=== PATIENT | male | born 1945 | race Caucasian/White ===

== ENCOUNTER 2020-09-27 09:18 | Emergency (ER) | payer MEDICARE, MEDICAID, SELFPAY ==
--- NOTE | 2020-09-27 09:25 | ED_ITS ---
HPI - Chest Pain General Chief Complaint: Chest Pain Stated Complaint: chest pain Time Seen by Provider: 09/27/20 09:25 Source: patient Mode of arrival: ambulatory Limitations: no limitations History of Present Illness HPI narrative: Patient started with abdominal pain yesterday and now developed chest pain. Patient is feeling stressed out from what is going on in the world. MD complaint: chest heaviness Onset (ago): hour(s) (2 hours) Timing of current episode: constant Prior episodes: No Onset: during rest Pain location: left chest Pain radiation: none Severity: mild Quality: heaviness Relieving factors: nothing Exacerbating factors: nothing Treatment prior to arrival: none Risk Factors Coronary artery disease risk factors: diabetes and hyperlipidemia Related Data Home Medications Medication Instructions Recorded Confirmed aspirin 81 mg tablet,delayed 81 mg PO BEDTIME 09/01/20 release atorvastatin 20 mg tablet 20 mg PO DAILY 09/01/20 chlorthalidone 25 mg tablet 25 mg PO DAILY 09/01/20 gabapentin 100 mg capsule 200 mg PO BID 09/01/20 losartan 50 mg tablet 50 mg PO DAILY 09/01/20 melatonin 5 mg tablet mg PO 09/01/20 metformin 500 mg tablet,extended 500 mg PO BID 09/01/20 release 24 hr mirtazapine 30 mg tablet 30 mg PO BEDTIME 09/01/20 multivitamin-ferrous tab PO 09/01/20 fumarate-folic acid 18 mg-400 mcg tablet naproxen 500 mg tablet 500 mg PO BID 09/01/20 nicotine 14 mg/24 hr daily 0 patch TOPICAL 09/01/20 transdermal patch omega-3 fatty acids-fish oil 340 1 cap PO BID 09/01/20 mg-1,000 mg capsule Allergies Allergy/AdvReac Type Severity Reaction Status Date / Time No Known Allergies Allergy Verified 09/27/20 09:33 Review of Systems Constitutional: Constitutional: Reports no additional constitutional complaints Eyes: Eyes: Reports no additional eye complaints ENT: Denies dizziness Cardiovascular: Cardiovascular: Reports no additional cardiovascular co mplaints Respiratory: Respiratory: Reports as per HPI Gastrointestinal: Gastrointestinal: Reports no additional gastrointestinal complaints Musculoskeletal: Musculoskeletal: Reports no additional musculoskeletal complaints Integumentary/Breasts: Skin/Breast: Denies rash Neurologic: Reports system reviewed and no additional complaints, except as documented, Denies dizziness and Denies Sensory deficit (Neuro) Psychiatric: Psychiatric: Denies anxiety [facility], [facility] Past Medical History Medical History (Updated 09/27/20 @ 12:48 by Charles Tate MD) Diabetes 1.5, managed as type 1 Kidney disease Family History Family History Father No problems noted. Mother Diabetes Pancreas (digestive gland) works poorly Social History Social History Smoking Status: Current every day smoker Smoked in Last 30 Days: Yes Use of substances other than those prescribed or required for medical reasons: No Advance Directives: No Advance Directives Information Provided: No Physical Exam Vital Signs: Vital Signs: Last Vital Signs Temp 97.8 F 09/27/20 11:19 Pulse 63 09/27/20 11:19 Resp 13 09/27/20 11:19 BP 121/73 09/27/20 11:19 Pulse Ox 97 09/27/20 11:19 Body Mass Index 22.3 Const: General: healthy appearing Nutritional Appearance: average body habitus Orientation/consciousness: oriented to person and patient oriented x3 Limitations: no limitations HENMT: Head: Yes normal to inspection Ears: external ears normal General nose exam: Normal external nose present Mouth: Normal oral and palatal mucosa present and oropharynx normal Throat: Yes posterior oropharynx normal Eyes: General: appearance normal, both eyes and all related structures Neck: Other: supple Neck: Yes normal visual inspection Chest: Chest palpation & inspection: normal inspection of the chest Resp: Auscultation: clear to auscultation bilaterally Cardio: Jugular venous distension: no JVD Rate: regular rate Rhythm: regular rhythm Heart sounds: S1 normal heart sound present and S2 normal heart sound present GI: Inspection: Yes normal to inspection Palpation (GI): Soft to palpation, nontender and No hepatosplenomegaly present Auscultation: normal bowel sounds : General: Yes no CVA tenderness Back/Spine/Pelvis: Back: no CVA tenderness Skin: General skin exam: no rashes or lesions noted Neuro: General: oriented to person and patient oriented x3 Cranial nerves: Yes CN's II-XII intact bilaterally Motor exam (neuro): 5/5 motor strength present throughout Sensory Exam: No Sensory deficit (Neuro) Extrem: General: Yes normal to inspection Psych: Appearance: grossly normal Course Course Course Narrative: HEART score at a 5 prior to troponin Reevaluation(s) Reevaluation #1: Heart score will remain at 5 as troponin was negative Reevaluation #2: second troponin negative, unofficial bedside ultrasound shows aorta of 1.75cm, no AAA. Will dc home MDM - Chest Pain MDM Narrative Medical decision making narrative: patient with atypical chest pain, EKG normal, troponins negative, HEART score 5, no evidence of AAA will dc home Differential Diagnosis Differential diagnosis: Likely unstable angina pectoris, atypical chest pain and chest pain Lab Data Result diagrams: 09/27/20 09:39 09/27/20 09:39 Labs: Lab Results 09/27/20 09/27/20 09/27/20 Range/Units 09:39 09:39 09:39 WBC 9.2 (4.8-10.8) X10*3/uL RBC 4.35 L (4.60-5.80) X10*6/uL Hgb 13.4 L (14.0-18.0) g/dl Hct 39.5 L (42-52) % MCV 90.8 (80-98) fL MCH 30.8 (27.0-33.0) pg MCHC 33.9 (31.0-36.0) g/dl RDW 12.5 (11.0-16.0) % Plt Count 203 (160-400) X10*3/uL MPV 10.9 (9.4-12.4) fL Immature Gran % (Auto) 0.2 (0.0-0.4) % Neut % (Auto) 60.2 (45-73) % Lymph % (Auto) 29.4 (20-40) % [place] % (Auto) 7.9 (2-11) % Eos % (Auto) 2.1 (0-4) % Baso % (Auto) 0.2 (0-2) % Lymph # (Auto) 2.7 (1.2-4.9) X10*3/uL [place] # (Auto) 0.7 (0.1-1.2) X10*3/uL Eos # (Auto) 0.2 (0.0-0.4) X10*3/uL Baso # (Auto) 0.0 (0.0-0.2) X10*3/uL Abs Immat Gran (auto) 0.02 (0.00-0.03) X10*3/uL Absolute Neuts (auto) 5.5 (2.0-8.3) X10*3/uL Absolute Nucleated RBC 0.000 (0.0-0.012) X10*3/uL Nucleated RBC % (auto) 0.0 (0.0-0.2) /100WBC Sodium 138 (135-145) mmol/L Potassium 3.8 (3.3-5.1) mmol/l Chloride 98 (96-108) mmol/L Carbon Dioxide 30 H (22-29) mmol/L Anion Gap 14 (12-20) BUN 16 (9-16) mg/dL Creatinine 1.36 (0.5-1.4) mg/dL Estim Creat Clear Calc 49.6 Estimated GFR 51 Random Glucose 120 H (60-115) mg/dL Calcium 9.4 (8.4-10.2) mg/dL Troponin I High Sens 3.5 (<3.5-35.0) ng/L 09/27/20 Range/Units 11:39 WBC (4.8-10.8) X10*3/uL RBC (4.60-5.80) X10*6/uL Hgb (14.0-18.0) g/dl Hct (42-52) % MCV (80-98) fL MCH (27.0-33.0) pg MCHC (31.0-36.0) g/dl RDW (11.0-16.0) % Plt Count (160-400) X10*3/uL MPV (9.4-12.4) fL Immature Gran % (Auto) (0.0-0.4) % Neut % (Auto) (45-73) % Lymph % (Auto) (20-40) % [place] % (Auto) (2-11) % Eos % (Auto) (0-4) % Baso % (Auto) (0-2) % Lymph # (Auto) (1.2-4.9) X10*3/uL [place] # (Auto) (0.1-1.2) X10*3/uL Eos # (Auto) (0.0-0.4) X10*3/uL Baso # (Auto) (0.0-0.2) X10*3/uL Abs Immat Gran (auto) (0.00-0.03) X10*3/uL Absolute Neuts (auto) (2.0-8.3) X10*3/uL Absolute Nucleated RBC (0.0-0.012) X10*3/uL Nucleated RBC % (auto) (0.0-0.2) /100WBC Sodium (135-145) mmol/L Potassium (3.3-5.1) mmol/l Chloride (96-108) mmol/L Carbon Dioxide (22-29) mmol/L Anion Gap (12-20) BUN (9-16) mg/dL Creatinine (0.5-1.4) mg/dL Estim Creat Clear Calc Estimated GFR Random Glucose (60-115) mg/dL Calcium (8.4-10.2) mg/dL Troponin I High Sens 3.6 (<3.5-35.0) ng/L ECG Data ECG #1: Attestation: I personally reviewed and interpreted this ECG as follows: Interpretation: normal sinus occaisional PVC, rate73, no st or twave changes Discharge Plan Discharge Clinical Impression: Chest pain Qualifiers: Chest pain type: other chest pain Qualified Code(s): R07.89 - Other chest pain Patient Disposition: Home, Self-Care Instructions: Chest Pain (ED) Additional Instructions: return for worsening chest pain Prescriptions: No Action metformin 500 mg tablet extended release 24 hr 500 mg PO BID RF: 0 Cerovite Advanced Formula 18-400 mg-mcg tablet PO RF: 0 melatonin 5 mg tablet PO RF: 0 aspirin 81 mg tablet,delayed release (DR/EC) 81 mg PO BEDTIME RF: 0 atorvastatin 20 mg tablet 20 mg PO DAILY RF: 0 losartan 50 mg tablet 50 mg PO DAILY RF: 0 Fish Oil 340-1,000 mg capsule 1 cap PO BID RF: 0 gabapentin 100 mg capsule 200 mg PO BID RF: 0 nicotine 14 mg/24 hr patch 24 hour 0 patch topical RF: 0 naproxen 500 mg tablet 500 mg PO BID RF: 0 mirtazapine 30 mg tablet 30 mg PO BEDTIME RF: 0 chlorthalidone 25 mg tablet 25 mg PO DAILY RF: 0 Referrals: Physician,Unknown [Primary Care Provider] - 2 days
[2020-09-27 09:27] VITALS: BP 130/70; PULSE 70; RESP 14; TEMP 36.6; O2SAT 98; BMI 22.3
--- NOTE | 2020-09-27 09:32 | ECG_ITS ---
Test Reason : CHEST PAIN Blood Pressure : / mmHG Vent. Rate : 073 BPM Atrial Rate : 073 BPM P-R Int : 140 ms QRS Dur : 082 ms QT Int : 354 ms P-R-T Axes : 018 -28 057 degrees QTc Int : 389 ms Sinus rhythm with occasional Premature ventricular complexes and Premature atrial complexes Nonspecific ST abnormality Left axis deviation Abnormal ECG When compared with ECG of 14-JUN-2019 03:29, Premature ventricular complexes are now Present Nonspecific T wave abnormality no longer evident in Inferior leads Anterolateral leads Premature atrial complexes are new QT has shortened Referred By: Charles Tate Electronically Signed By:RANJAN BURNS MD
[2020-09-27 09:47] LABS: Basophils Percent Auto 0.2 % (0-2); Eosinophils Absolute Auto 0.2 X10*3/uL (0.0-0.4); Eosinophils Percent Auto 2.1 % (0-4); Hematocrit 39.5 % (42-52); Hemoglobin 13.4 g/dl (14.0-18.0); Imm Gran Abs Auto 0.02 X10*3/uL (0.00-0.03); Imm Gran Pct Auto 0.2 % (0.0-0.4); Lymphocytes Absolute Auto 2.7 X10*3/uL (1.2-4.9); Lymphocytes Percent Auto 29.4 % (20-40); MANUAL DIFF FLAG NO; Mean Corpuscular HGB Conc 33.9 g/dl (31.0-36.0); Mean Corpuscular Hemoglobin 30.8 pg (27.0-33.0); Mean Corpuscular Volume 90.8 fL (80-98); Mean Platelet Volume 10.9 fL (9.4-12.4); Monocytes Absolute Auto 0.7 X10*3/uL (0.1-1.2); Monocytes Percent Auto 7.9 % (2-11); Neutrophils Absolute Auto 5.5 X10*3/uL (2.0-8.3); Neutrophils Percent Auto 60.2 % (45-73); Platelet Count 203 X10*3/uL (160-400); Red Blood Count 4.35 X10*6/uL (4.60-5.80); Red Cell Distribution Width 12.5 % (11.0-16.0); White Blood Count 9.2 X10*3/uL (4.8-10.8)
[2020-09-27 09:49] VITALS: BP 130/70; PULSE 62
[2020-09-27] MEDS: Aspirin 81 MG TAB.CHEW 162 MG PO (09:49)
[2020-09-27] MEDS: Nitroglycerin 0.4 MG TAB.SUBL SUBLINGUAL (09:49)
[2020-09-27 10:03] VITALS: BP 135/63; PULSE 76
[2020-09-27 10:09] LABS: Anion Gap 14 (12-20); Blood Urea Nitrogen 16 mg/dL (9-16); Calcium 9.4 mg/dL (8.4-10.2); Carbon Dioxide 30 mmol/L (22-29); Chloride 98 mmol/L (96-108); Creatinine Clr Calc Pharmacy 49.6; Estimated Glomerular Filt Rate 51; Glucose Random 120 mg/dL (60-115); Potassium 3.8 mmol/l (3.3-5.1); Sodium 138 mmol/L (135-145)
[2020-09-27 10:17] LABS: Troponin-I High Sensitivity 3.5 ng/L (<3.5-35.0)
[2020-09-27] MEDS: Nitroglycerin 2 % Oint 1 GM Packet 1 INCH TRANSDERMA (10:59)
[2020-09-27 11:02] VITALS: BP 120/69; PULSE 58; O2SAT 97
[2020-09-27 11:19] VITALS: BP 121/73; PULSE 63; RESP 13; TEMP 36.6; O2SAT 97
--- NOTE | 2020-09-27 11:23 | PC.NURSE ---
Took over care of this patient at 1100. Pt was medicated for left chest and abd pain with sl and topical nitro. He reports no pain at this time. VSS. Pt appears comfortable. Awaiting disopsition.
[2020-09-27 11:24] VITALS: PULSE 53
[2020-09-27 12:13] LABS: Troponin-I High Sensitivity 3.6 ng/L (<3.5-35.0)
== END 2020-09-27 12:58 | disposition home or self-care (01) ==
PROVIDERS: Emergency Provider Emergency Medicine
DX: R07.89 Other chest pain (principal); F17.200 Nicotine dependence, unspecified, uncomplicated; Z71.6 Tobacco abuse counseling; R10.9 Unspecified abdominal pain; Z79.899 Other long term (current) drug therapy
CPT/HCPCS: 36415; 80048; 84484; 85025; 93005; 99283; 99284

== ENCOUNTER 2020-09-29 13:19 | Emergency (ER) | payer MEDICARE, MEDICAID, SELFPAY ==
[2020-09-29 14:17] VITALS: BP 121/73; PULSE 60; RESP 16; TEMP 36.2; O2SAT 99; BMI 23.7
--- NOTE | 2020-09-29 14:44 | CT_ITS ---
EXAMINATION: CT ABDOMEN AND PELVIS WITHOUT CONTRAST CLINICAL INFORMATION: Left lower quadrant pain COMPARISON: Prior examinations most recent CT abdomen pelvis June 2017. TECHNIQUE: Multidetector volumetric imaging was performed from the superior aspect of the liver through the pubic symphysis. Sagittal and coronal reformatted images were obtained on the technologist's workstation. This CT examination was performed using dose optimization techniques as appropriate, variously including the following: *Automated exposure control *Adjustment of mA and/or kV according to patient size (this includes techniques or standardized protocols for targeted exams where dose is matched to indication/reason for exam; i.e. extremities or head) *Use of iterative reconstruction technique DLP: 495 mGy-cm FINDINGS: LUNG BASES: The visualized lung bases are unremarkable. LIVER, GALLBLADDER, AND BILIARY TREE: The liver is normal in size, shape, and attenuation. No focal hepatic lesion or biliary ductal dilatation is present. The gallbladder is unremarkable with no evidence of radiopaque gallstones, gallbladder wall thickening, or obvious pericholecystic inflammatory changes. PANCREAS: Unremarkable. SPLEEN: Unremarkable. ADRENAL GLANDS: Unremarkable. KIDNEYS AND URETERS: The kidneys are normal in size, shape, and attenuation. No hydronephrosis, hydroureter, or calculi seen. No perinephric stranding. BLADDER: Unremarkable. GASTROINTESTINAL TRACT: Appendix not clearly visualized. No inflammatory changes in the expected region appendix. There is prominent scattered diverticulosis throughout the descending colon and sigmoid colon. Is some minimal stranding in the pericolonic fat distal descending colon and sigmoid similar compared to prior. This could reflect chronic change but cannot exclude mild diverticulitis small bowel normal. Stomach normal. ABDOMINAL WALL: No significant hernia is appreciated. LYMPH NODES: Normal. VASCULAR: Moderate calcific atherosclerotic disease throughout. PELVIC VISCERA: Unremarkable. OSSEOUS STRUCTURES: Prominent degenerative disc changes at L5-S1 unchanged. Scattered mild multilevel spondylosis elsewhere throughout the lumbar sacral spine. CT/CT abdomen pelvis wo con IMPRESSION: Scattered diverticulosis throughout the distal colon. Subtle stranding in the surrounding pericolonic fat in the descending colon and sigmoid similar to prior. While this could reflect chronic diverticulosis recurrent mild acute diverticulitis remains a consideration.. Moderate calcific atherosclerotic disease.
--- NOTE | 2020-09-29 14:49 | ED_ITS ---
HPI - Abdominal Pain General Chief Complaint: Abdominal Pain Stated Complaint: NEEDS MEDICATION Time Seen by Provider: 09/29/20 13:44 Source: patient and old records reviewed Mode of arrival: ambulatory Limitations: no limitations History of Present Illness MD elicited complaint: abdominal pain Pertinent past history: constipation Onset (ago): day(s) (3) Pain Consistency: constant Location: LLQ Severity: moderate Quality: cramping Radiation: LLQ Exacerbating factors: movement Relieving factors: nothing Associated symptoms: denies other symptoms Related Data Home Medications Medication Instructions Recorded Confirmed aspirin 81 mg tablet,delayed 81 mg PO BEDTIME 09/01/20 release atorvastatin 20 mg tablet 20 mg PO DAILY 09/01/20 chlorthalidone 25 mg tablet 25 mg PO DAILY 09/01/20 gabapentin 100 mg capsule 200 mg PO BID 09/01/20 losartan 50 mg tablet 50 mg PO DAILY 09/01/20 melatonin 5 mg tablet mg PO 09/01/20 metformin 500 mg tablet,extended 500 mg PO BID 09/01/20 release 24 hr mirtazapine 30 mg tablet 30 mg PO BEDTIME 09/01/20 multivitamin-ferrous tab PO 09/01/20 fumarate-folic acid 18 mg-400 mcg tablet naproxen 500 mg tablet 500 mg PO BID 09/01/20 nicotine 14 mg/24 hr daily 0 patch TOPICAL 09/01/20 transdermal patch omega-3 fatty acids-fish oil 340 1 cap PO BID 09/01/20 mg-1,000 mg capsule Previous Rx's Medication Instructions Recorded hydrocodone-acetaminophen 1 tab PO Q6H PRN #12 tab 09/29/20 levofloxacin 250 mg PO DAILY 7 Days #7 tab 09/29/20 metronidazole [Flagyl] 500 mg PO Q12H 7 Days #14 tab 09/29/20 ondansetron 4 mg PO Q8H PRN #20 tab 09/29/20 sennosides [senna] 8.6 mg PO BEDTIME PRN #30 tab 09/29/20 Allergies Allergy/AdvReac Type Severity Reaction Status Date / Time No Known Allergies Allergy Verified 09/27/20 09:33 Review of Systems Review of Systems Constitutional : No Weight loss, No Fever, No Chills ENT/Mouth : No sore throat, No Rhinorrhea Eyes: No Swelling, No Redness Cardiovascular : No Chest Pain, No SOB, NoEdema Respiratory : No Cough, No Sputum, No Wheezing Gastrointestinal : no Nausea, no Vomiting, no Diarrhea, positive abdominal Pain, positive constipation No Hematochezia, No Melena Genitourinary : No Dysuria, No Urinary Frequency, No Hematuria, No Urgency Musculoskeletal : No joint pain, No Myalgias, No Joint Swelling Skin : No Skin Lesions, No rash Neuro : No Weakness, No Numbness, No Dizziness, No Headache Psych : No Anxiety/Panic, No Depression Heme/Lymph: No Bruising, No Lymphadenopathy Endocrine : No Polyuria, No Polydipsia All other systems reviewed and are negative. Physical Exam Vital Signs: Vital Signs: Last Vital Signs Temp 97.2 F 09/29/20 14:17 Pulse 60 09/29/20 14:17 Resp 16 09/29/20 14:17 BP 121/73 09/29/20 14:17 Pulse Ox 99 09/29/20 14:17 Body Mass Index 23.7 Appearance: Alert. Oriented X3. No acute distress. Eyes: Pupils equal, round and reactive to light. ENT: Pharynx normal. Neck: Normal inspection. Neck supple. CVS: Normal heart rate and rhythm. Pulses normal. Respiratory: No respiratory distress. Breath sounds normal. Abdomen: Soft and tenderness to palpation LLQ no rebound or guarding Skin: Skin warm and dry. Normal skin color. Normal skin turgor. Extremities: No lower extremity edema. No calf ttp Neuro: Oriented X 3. No motor deficit. No sensory deficit. Course Course Course Narrative: + mild diverticulitis stable for DC outpatient management. MDM - Abdominal Pain MDM Narrative Medical decision making narrative: 75 yo male here with LLQ pain no or GI symptoms other than constipation - no rebound or guarding no fevers, vomiting, can tolerate PO at this time will need labs, CT scan for constipation vs diverticulitis, dispo per results and findings. Lab Data Labs: Lab Results 09/29/20 Range/Units 15:27 Urine Color YELLOW Urine Appearance CLEAR Urine pH 8.0 (5.0-8.0) Ur Specific [place] 1.015 (1.005-1.025) Urine Protein NEG (NEG-TRACE) MG/DL Urine Glucose (UA) 100 H (NEG) MG/DL Urine Ketones NEG (NEG) MG/DL Urine Blood NEG (NEG) Urine Nitrite NEG (NEG) Ur Leukocyte Esterase NEG (NEG) Discharge Plan Discharge Clinical Impression: Diverticulitis Patient Disposition: Home, Self-Care Instructions: Diverticulitis (ED) Additional Instructions: return to ED for any worsening symptoms or concerns Prescriptions: New hydrocodone-acetaminophen 5-325 mg tablet 1 tab PO Q6H PRN (Reason: pain) Qty: 12 RF: 0 ondansetron 4 mg tablet,disintegrating 4 mg PO Q8H PRN (Reason: nausea and vomiting) Qty: 20 RF: 0 metronidazole [Flagyl] 500 mg tablet 500 mg PO Q12H 7 Days Qty: 14 RF: 0 levofloxacin 250 mg tablet 250 mg PO DAILY 7 Days Qty: 7 RF: 0 sennosides [senna] 8.6 mg tablet 8.6 mg PO BEDTIME PRN (Reason: constipation) Qty: 30 RF: 0 No Action metformin 500 mg tablet extended release 24 hr 500 mg PO BID RF: 0 Cerovite Advanced Formula 18-400 mg-mcg tablet PO RF: 0 melatonin 5 mg tablet PO RF: 0 aspirin 81 mg tablet,delayed release (DR/EC) 81 mg PO BEDTIME RF: 0 atorvastatin 20 mg tablet 20 mg PO DAILY RF: 0 losartan 50 mg tablet 50 mg PO DAILY RF: 0 Fish Oil 340-1,000 mg capsule 1 cap PO BID RF: 0 gabapentin 100 mg capsule 200 mg PO BID RF: 0 nicotine 14 mg/24 hr patch 24 hour 0 patch topical RF: 0 naproxen 500 mg tablet 500 mg PO BID RF: 0 mirtazapine 30 mg tablet 30 mg PO BEDTIME RF: 0 chlorthalidone 25 mg tablet 25 mg PO DAILY RF: 0 Referrals: [facility] [Primary Care Provider] - 2 days (if not better) Stand Alone Forms: Work/School Release Print Language: Swedish [facility] Past Medical History Attestation statement: The following information was validated with the patient. Medical History Diabetes 1.5, managed as type 1 Kidney disease Family History Family History Father No problems noted. Mother Diabetes Pancreas (digestive gland) works poorly Social History Social History Smoking Status: Current every day smoker Advance Directives: No Advance Directives Information Provided: Yes
[2020-09-29 15:32] LABS: Glucose Urine UA 100 MG/DL (NEG); Leukocyte Esterase Urine NEG (NEG); Nitrite Urine NEG (NEG); Specific Gravity - Urine 1.015 (1.005-1.025); Urine Blood NEG (NEG); Urine Ketones NEG (NEG); Urine Protein NEG (NEG-TRACE)
[2020-09-29 15:34] LABS: Appearance Urine CLEAR; Color Urine YELLOW
[2020-09-29 15:57] VITALS: BP 127/70; PULSE 69; RESP 16; TEMP 36.9; O2SAT 97
== END 2020-09-29 16:00 | disposition home or self-care (01) ==
PROVIDERS: Emergency Provider Emergency Medicine
DX: K57.32 Diverticulitis of large intestine without perforation or abscess without bleeding (principal); R10.32 Left lower quadrant pain; Z79.899 Other long term (current) drug therapy
CPT/HCPCS: 74176; 81003; 99284

== ENCOUNTER 2020-10-10 18:12 | Emergency (ER) | payer MEDICARE, MEDICAID, SELFPAY ==
--- NOTE | 2020-10-10 18:13 | ECG_ITS ---
Test Reason : cp Blood Pressure : / mmHG Vent. Rate : 074 BPM Atrial Rate : 074 BPM P-R Int : 132 ms QRS Dur : 088 ms QT Int : 364 ms P-R-T Axes : 012 -38 094 degrees QTc Int : 404 ms Sinus rhythm with sinus arrhythmia with occasional Premature ventricular complexes Left anterior fascicular block Nonspecific ST and T wave abnormality Abnormal ECG When compared with ECG of 27-SEP-2020 09:25, Premature atrial complexes are no longer Present Nonspecific T wave abnormality, worse in Lateral leads Inferior leads Referred By: Generic ED Physician Electronically Signed By:RANJAN BURNS MD
[2020-10-10 18:58] VITALS: BP 125/79; PULSE 76; RESP 18; TEMP 37; O2SAT 99; BMI 23.6
--- NOTE | 2020-10-10 19:06 | ED_ITS ---
HPI - Chest Pain General Chief Complaint: Chest Pain Stated Complaint: chest pain,dizzyness Time Seen by Provider: 10/10/20 19:06 Source: patient Mode of arrival: ambulatory Limitations: no limitations History of Present Illness HPI narrative: patient history of anxiety , diabetes well controlled complaining of epigastric chest pain for last few days similar to in the past when he gets anxious he was seen here on 09/27 and the workup was negative. Patient is under lot of stress lately MD complaint: chest pain Onset (ago): day(s) ( few days) Timing of current episode: episodic Onset: during rest Pain location: substernal and epigastric Pain radiation: abdomen Quality: dull Relieving factors: nothing Exacerbating factors: movement Context: recent illness Associated symptoms: nausea Treatment prior to arrival: none Related Data Home Medications Medication Instructions Recorded Confirmed aspirin 81 mg tablet,delayed 81 mg PO BEDTIME 09/01/20 release atorvastatin 20 mg tablet 20 mg PO DAILY 09/01/20 chlorthalidone 25 mg tablet 25 mg PO DAILY 09/01/20 gabapentin 100 mg capsule 200 mg PO BID 09/01/20 losartan 50 mg tablet 50 mg PO DAILY 09/01/20 melatonin 5 mg tablet mg PO 09/01/20 metformin 500 mg tablet,extended 500 mg PO BID 09/01/20 release 24 hr mirtazapine 30 mg tablet 30 mg PO BEDTIME 09/01/20 multivitamin-ferrous tab PO 09/01/20 fumarate-folic acid 18 mg-400 mcg tablet naproxen 500 mg tablet 500 mg PO BID 09/01/20 nicotine 14 mg/24 hr daily 0 patch TOPICAL 09/01/20 transdermal patch omega-3 fatty acids-fish oil 340 1 cap PO BID 09/01/20 mg-1,000 mg capsule Previous Rx's Medication Instructions Recorded hydrocodone-acetaminophen 1 tab PO Q6H PRN #12 tab 09/29/20 levofloxacin 250 mg PO DAILY 7 Days #7 tab 09/29/20 metronidazole [Flagyl] 500 mg PO Q12H 7 Days #14 tab 09/29/20 ondansetron 4 mg PO Q8H PRN #20 tab 09/29/20 sennosides [senna] 8.6 mg PO BEDTIME PRN #30 tab 09/29/20 lorazepam [Ativan] 1 mg PO BID PRN #14 tab 11/23/20 Allergies Allergy/AdvReac Type Severity Reaction Status Date / Time No Known Allergies Allergy Verified 09/27/20 09:33 Review of Systems Review of Systems: REVIEW OF SYSTEMS: Pertinent positives and negatives are stated above in the history. GEN: no fevers, chills, fatigue , anxiety + HEENT: no nasal congestion, sore throat, ear pain NEURO: no headache, dizziness, focal weakness PULM: no cough, shortness of breath CV: no palpitations, LE edema ABD: no abdominal pain, nausea, vomiting, diarrhea : no dysuria, urgency, frequency SKIN: no rash ROS otherwise negative x 10 [facility] Past Medical History Medical History Diabetes 1.5, managed as type 1 Kidney disease Family History Family History Father No problems noted. Mother Diabetes Pancreas (digestive gland) works poorly Social History Social History Alcohol intake: never Smoking Status: Never smoker Smoked in Last 30 Days: No Use of substances other than those prescribed or required for medical reasons: No Advance Directives: No Advance Directives Information Provided: Yes Physical Exam Vital Signs: Vital Signs: Last Vital Signs Temp 98.6 F 10/10/20 18:58 Pulse 73 10/10/20 20:00 Resp 16 10/10/20 20:00 BP 127/73 10/10/20 20:00 Pulse Ox 98 10/10/20 20:00 Body Mass Index 23.6 Appearance: Alert. Oriented X3. No acute distress. Eyes: Pupils equal, round and reactive to light. ENT: Pharynx normal. Neck: Normal inspection. Neck supple. CVS: Normal heart rate and rhythm. Pulses normal. Respiratory: No respiratory distress. Breath sounds normal. Abdomen: Soft and nontender. Skin: Skin warm and dry. Normal skin color. Normal skin turgor. Extremities: No lower extremity edema. Good range of movement Neuro: Oriented X 3. No motor deficit. No sensory deficit. MDM - Chest Pain MDM Narrative Medical decision making narrative: patient has atypical chest pain with anxiety with similar visit in the ER without any EKG changes troponin is negative will discharge patient home will give him a prescription for Ativan Medical Records Data Attestation: I reviewed the patient's medical records. Lab Data Attestation: I reviewed the patient's lab results. Result diagrams: 10/10/20 19:49 10/10/20 19:49 Labs: Lab Results 10/10/20 10/10/20 10/10/20 Range/Units 19:49 19:49 19:49 WBC 9.0 (4.8-10.8) X10*3/uL RBC 4.33 L (4.60-5.80) X10*6/uL Hgb 13.5 L (14.0-18.0) g/dl Hct 40.0 L (42-52) % MCV 92.4 (80-98) fL MCH 31.2 (27.0-33.0) pg MCHC 33.8 (31.0-36.0) g/dl RDW 12.9 (11.0-16.0) % Plt Count 199 (160-400) X10*3/uL MPV 10.9 (9.4-12.4) fL Immature Gran % (Auto) 0.2 (0.0-0.4) % Neut % (Auto) 64.1 (45-73) % Lymph % (Auto) 25.7 (20-40) % [place] % (Auto) 8.2 (2-11) % Eos % (Auto) 1.6 (0-4) % Baso % (Auto) 0.2 (0-2) % Lymph # (Auto) 2.3 (1.2-4.9) X10*3/uL [place] # (Auto) 0.7 (0.1-1.2) X10*3/uL Eos # (Auto) 0.1 (0.0-0.4) X10*3/uL Baso # (Auto) 0.0 (0.0-0.2) X10*3/uL Abs Immat Gran (auto) 0.02 (0.00-0.03) X10*3/uL Absolute Neuts (auto) 5.8 (2.0-8.3) X10*3/uL Absolute Nucleated RBC 0.000 (0.0-0.012) X10*3/uL Nucleated RBC % (auto) 0.0 (0.0-0.2) /100WBC Sodium 140 (135-145) mmol/L Potassium 3.6 (3.3-5.1) mmol/l Chloride 100 (96-108) mmol/L Carbon Dioxide 28 (22-29) mmol/L Anion Gap 16 (12-20) BUN 17 H (9-16) mg/dL Creatinine 1.27 (0.5-1.4) mg/dL Estim Creat Clear Calc 55.1 Estimated GFR 56 Random Glucose 94 (60-115) mg/dL Calcium 9.2 (8.4-10.2) mg/dL Troponin I High Sens 4.2 (<3.5-35.0) ng/L ECG Data ECG #1: Attestation: I personally reviewed and interpreted this ECG as follows: ECG interpretation date: 10/10/20 Interpretation: normal sinus rhythm with heart rate of 74 left axis deviation nonspecific ST T wave changes , normal intervals occasional unifocal PVCs, no acute ischemic changes Discharge Plan Discharge Clinical Impression: Atypical chest pain, Anxiety Patient Disposition: Home, Self-Care Instructions: Chest Pain (ED), Anxiety (ED) Additional Instructions: continue taking medications as prescribed by PCP. Take medication for anxiety. Report to the ER/ PCP chest pain continues Prescriptions: New lorazepam [Ativan] 1 mg tablet 1 mg PO BID PRN (Reason: anxiety) Qty: 14 RF: 0 No Action hydrocodone-acetaminophen 5-325 mg tablet 1 tab PO Q6H PRN (Reason: pain) Qty: 12 RF: 0 ondansetron 4 mg tablet,disintegrating 4 mg PO Q8H PRN (Reason: nausea and vomiting) Qty: 20 RF: 0 metronidazole [Flagyl] 500 mg tablet 500 mg PO Q12H 7 Days Qty: 14 RF: 0 levofloxacin 250 mg tablet 250 mg PO DAILY 7 Days Qty: 7 RF: 0 sennosides [senna] 8.6 mg tablet 8.6 mg PO BEDTIME PRN (Reason: constipation) Qty: 30 RF: 0 metformin 500 mg tablet extended release 24 hr 500 mg PO BID RF: 0 Cerovite Advanced Formula 18-400 mg-mcg tablet PO RF: 0 melatonin 5 mg tablet PO RF: 0 aspirin 81 mg tablet,delayed release (DR/EC) 81 mg PO BEDTIME RF: 0 atorvastatin 20 mg tablet 20 mg PO DAILY RF: 0 losartan 50 mg tablet 50 mg PO DAILY RF: 0 Fish Oil 340-1,000 mg capsule 1 cap PO BID RF: 0 gabapentin 100 mg capsule 200 mg PO BID RF: 0 nicotine 14 mg/24 hr patch 24 hour 0 patch topical RF: 0 naproxen 500 mg tablet 500 mg PO BID RF: 0 mirtazapine 30 mg tablet 30 mg PO BEDTIME RF: 0 chlorthalidone 25 mg tablet 25 mg PO DAILY RF: 0 Interventions: ED Discharge Assessment Last Done: 10/10/20 21:14 Discharge Date/Time: 10/10/20 21:15 Print Language: Vietnamese
[2020-10-10 19:55] LABS: MANUAL DIFF FLAG NO
[2020-10-10 19:56] LABS: Basophils Percent Auto 0.2 % (0-2); Eosinophils Absolute Auto 0.1 X10*3/uL (0.0-0.4); Eosinophils Percent Auto 1.6 % (0-4); Hemoglobin 13.5 g/dl (14.0-18.0); Imm Gran Abs Auto 0.02 X10*3/uL (0.00-0.03); Imm Gran Pct Auto 0.2 % (0.0-0.4); Lymphocytes Absolute Auto 2.3 X10*3/uL (1.2-4.9); Lymphocytes Percent Auto 25.7 % (20-40); Mean Corpuscular HGB Conc 33.8 g/dl (31.0-36.0); Mean Corpuscular Hemoglobin 31.2 pg (27.0-33.0); Mean Corpuscular Volume 92.4 fL (80-98); Mean Platelet Volume 10.9 fL (9.4-12.4); Monocytes Absolute Auto 0.7 X10*3/uL (0.1-1.2); Monocytes Percent Auto 8.2 % (2-11); Neutrophils Absolute Auto 5.8 X10*3/uL (2.0-8.3); Neutrophils Percent Auto 64.1 % (45-73); Platelet Count 199 X10*3/uL (160-400); Red Blood Count 4.33 X10*6/uL (4.60-5.80); Red Cell Distribution Width 12.9 % (11.0-16.0)
[2020-10-10 20:00] VITALS: BP 127/73; PULSE 73; RESP 16; O2SAT 98
[2020-10-10] MEDS: Omeprazole 40 MG CAPSULE.DR PO (20:21)
[2020-10-10 20:23] LABS: Anion Gap 16 (12-20); Blood Urea Nitrogen 17 mg/dL (9-16); Calcium 9.2 mg/dL (8.4-10.2); Carbon Dioxide 28 mmol/L (22-29); Chloride 100 mmol/L (96-108); Creatinine Clr Calc Pharmacy 55.1; Estimated Glomerular Filt Rate 56; Glucose Random 94 mg/dL (60-115); Potassium 3.6 mmol/l (3.3-5.1); Sodium 140 mmol/L (135-145)
[2020-10-10 20:30] LABS: Troponin-I High Sensitivity 4.2 ng/L (<3.5-35.0)
[2020-10-10 20:58] VITALS: PULSE 69
== END 2020-10-10 21:15 | disposition home or self-care (01) ==
PROVIDERS: Emergency Provider Internal Medicine
DX: R07.89 Other chest pain (principal); R10.13 Epigastric pain; R42 Dizziness and giddiness; F41.1 Generalized anxiety disorder; F43.0 Acute stress reaction; Z79.899 Other long term (current) drug therapy
CPT/HCPCS: 36415; 80048; 84484; 85025; 93005; 99283; 99284

== ENCOUNTER 2020-11-07 16:50 | Emergency (ER) | payer MEDICARE, MEDICAID, SELFPAY ==
[2020-11-07 16:53] VITALS: BP 99/62; PULSE 61; RESP 20; TEMP 36.9; O2SAT 98; BMI 23.7
--- NOTE | 2020-11-07 18:38 | ECG_ITS ---
Test Reason : cp dizzi Blood Pressure : / mmHG Vent. Rate : 078 BPM Atrial Rate : 078 BPM P-R Int : 134 ms QRS Dur : 084 ms QT Int : 368 ms P-R-T Axes : 021 -32 057 degrees QTc Int : 419 ms Sinus rhythm with frequent Premature ventricular complexes Left axis deviation Nonspecific T wave abnormality Abnormal ECG When compared with ECG of 10-OCT-2020 18:25, Nonspecific T wave abnormality now evident in Inferior leads Referred By: Gauri Galaviz Electronically Signed By:JAN PERERA MD
--- NOTE | 2020-11-07 18:42 | ED_ITS ---
HPI - Chest Pain General Chief Complaint: Chest Pain Stated Complaint: shoulder pain Time Seen by Provider: 11/07/20 17:54 Source: patient Mode of arrival: ambulatory Limitations: no limitations History of Present Illness HPI narrative: Patient comes emergency room complaining of chest pain, dizziness, nausea vomiting diarrhea. When I spoke to the patient, he denied vomiting and diarrhea and dizziness, states he only has had intermittent chest pain for 2 days, and epigastric discomfort for 3 days. Patient denies any chest pain at this time. Patient states he drank alcohol 3 days ago, denies using drugs. Related Data Home Medications Medication Instructions Recorded Confirmed aspirin 81 mg tablet,delayed 81 mg PO BEDTIME 09/01/20 release atorvastatin 20 mg tablet 20 mg PO DAILY 09/01/20 chlorthalidone 25 mg tablet 25 mg PO DAILY 09/01/20 gabapentin 100 mg capsule 200 mg PO BID 09/01/20 losartan 50 mg tablet 50 mg PO DAILY 09/01/20 melatonin 5 mg tablet mg PO 09/01/20 metformin 500 mg tablet,extended 500 mg PO BID 09/01/20 release 24 hr mirtazapine 30 mg tablet 30 mg PO BEDTIME 09/01/20 multivitamin-ferrous tab PO 09/01/20 fumarate-folic acid 18 mg-400 mcg tablet naproxen 500 mg tablet 500 mg PO BID 09/01/20 nicotine 14 mg/24 hr daily 0 patch TOPICAL 09/01/20 transdermal patch omega-3 fatty acids-fish oil 340 1 cap PO BID 09/01/20 mg-1,000 mg capsule Previous Rx's Medication Instructions Recorded hydrocodone-acetaminophen 1 tab PO Q6H PRN #12 tab 09/29/20 levofloxacin 250 mg PO DAILY 7 Days #7 tab 09/29/20 metronidazole [Flagyl] 500 mg PO Q12H 7 Days #14 tab 09/29/20 ondansetron 4 mg PO Q8H PRN #20 tab 09/29/20 sennosides [senna] 8.6 mg PO BEDTIME PRN #30 tab 09/29/20 lorazepam [Ativan] 1 mg PO BID PRN #14 tab 10/10/20 Allergies Allergy/AdvReac Type Severity Reaction Status Date / Time No Known Allergies Allergy Verified 09/27/20 09:33 Review of Systems Review of Systems: Constitutional : No Weight loss, No Fever, No Chills, No Night Sweats, No Fatigue, No Malaise ENT/Mouth : No Hearing loss, No Ear Pain, No Nasal Congestion, No Sinus Pain, No Hoarseness, No sore throat, No Rhinorrhea, No Swallowing Difficulty Eyes: No Eye Pain, No Swelling, No Redness, No Foreign Body, No Discharge, No Vision Changes Cardiovascular : Intermittent chest pain, no chest pain at this time, No SOB, No Dyspnea on Exertion, No Orthopnea, No Edema, No Palpitations Respiratory : No Cough, No Sputum, No Wheezing, No Smoke Exposure, No Dyspnea Gastrointestinal : No Nausea, No Vomiting, No Diarrhea, No Constipation, mild abdominal Pain, No Hematochezia, No Melena Genitourinary : no irregular bleeding, No Dysuria, No Urinary Frequency, No Hematuria, No Urinary Incontinence, No Urgency, No Flank Pain, No Urinary Flow Changes, No Hesitancy Musculoskeletal : No joint pain, No Myalgias, No Joint Swelling Skin : No Skin Lesions, No rash Neuro : No Weakness, No Numbness, No Paresthesias, No Loss of Consciousness, No Dizziness, No Headache Psych : No Anxiety/Panic, No Depression, No SI/HI/AH/VH, No Social Issues, Heme/Lymph: No Bruising, No Bleeding,No Lymphadenopathy Endocrine : No Polyuria, No Polydipsia, No Temperature Intolerance PMFSH Past Medical History Medical History Alcohol abuse Appendicitis Cocaine abuse Diabetes 1.5, managed as type 1 Kidney disease Family History Family History Father No problems noted. Mother Diabetes Pancreas (digestive gland) works poorly Social History Social History Alcohol intake: never Smoking Status: Never smoker Use of substances other than those prescribed or required for medical reasons: No Advance Directives: No Advance Directives Information Provided: Yes Physical Exam Vital Signs: Vital Signs: Last Vital Signs Temp 98.4 F 11/07/20 16:53 Pulse 62 11/07/20 20:00 Resp 12 11/07/20 20:00 BP 124/54 L 11/07/20 19:41 Pulse Ox 98 11/07/20 20:00 Body Mass Index 23.7 Appearance: Alert. Oriented X3. No acute distress. Well-appearing, watching TV in his room and speaking on the phone Eyes: Pupils equal, round and reactive to light. ENT: Pharynx normal. Neck: Normal inspection. Neck supple. No lymph nodes noted. No crepitus CVS: Normal heart rate and rhythm. Pulses normal. Normal S1 and S2 Respiratory: No respiratory distress. Breath sounds normal. No Wheezing. No rales Abdomen: Soft and nontender on deep palpation in all quadrants. No rigidity. No distention. Skin: Skin warm and dry. Normal skin color. Normal skin turgor. Extremities: No lower extremity edema. No lower extremity edema. No Lacerations. No Rash Neuro: Oriented X 3. No motor deficit. No sensory deficit. Moving all extermities. No slurred speech. Course Course Course Narrative: In the emergency room patient has been asymptomatic, no chest pain or palpitations or shortness of breath. I discussed with the patient that his urine tested positive for cocaine, patient states the only thing that he drank was rum, continues denying that he used cocaine. At this time, patient denies chest pain, no shortness of breath, no dizziness. I discussed with the patient that cocaine can cause chest pain and the symptoms he describes. MDM - Chest Pain Lab Data Result diagrams: 11/07/20 19:32 11/07/20 19:32 Labs: Lab Results 11/07/20 11/07/20 11/07/20 Range/Units 19:32 19:32 19:32 WBC 7.1 (4.8-10.8) X10*3/uL RBC 4.32 L (4.60-5.80) X10*6/uL Hgb 13.4 L (14.0-18.0) g/dl Hct 40.1 L (42-52) % MCV 92.8 (80-98) fL MCH 31.0 (27.0-33.0) pg MCHC 33.4 (31.0-36.0) g/dl RDW 13.3 (11.0-16.0) % Plt Count 171 (160-400) X10*3/uL MPV 11.2 (9.4-12.4) fL Immature Gran % (Auto) 0.3 (0.0-0.4) % Neut % (Auto) 63.9 (45-73) % Lymph % (Auto) 27.2 (20-40) % [place] % (Auto) 7.0 (2-11) % Eos % (Auto) 1.5 (0-4) % Baso % (Auto) 0.1 (0-2) % Lymph # (Auto) 1.9 (1.2-4.9) X10*3/uL [place] # (Auto) 0.5 (0.1-1.2) X10*3/uL Eos # (Auto) 0.1 (0.0-0.4) X10*3/uL Baso # (Auto) 0.0 (0.0-0.2) X10*3/uL Abs Immat Gran (auto) 0.02 (0.00-0.03) X10*3/uL Absolute Neuts (auto) 4.5 (2.0-8.3) X10*3/uL Absolute Nucleated RBC 0.000 (0.0-0.012) X10*3/uL Nucleated RBC % (auto) 0.0 (0.0-0.2) /100WBC Sodium 139 (135-145) mmol/L Potassium 3.3 (3.3-5.1) mmol/l Chloride 101 (96-108) mmol/L Carbon Dioxide 29 (22-29) mmol/L Anion Gap 12 (12-20) BUN 23 H (9-16) mg/dL Creatinine 1.32 (0.5-1.4) mg/dL Estim Creat Clear Calc 53.0 Estimated GFR 53 Random Glucose 105 (60-115) mg/dL Calcium 9.2 (8.4-10.2) mg/dL Total Bilirubin 0.5 (0.0-1.0) mg/dL Direct Bilirubin 0.2 (0.0-0.5) mg/dL AST 24 (5-37) U/L ALT 29 (0-40) U/L Alkaline Phosphatase 62 (39-117) U/L Troponin I High Sens < 3.5 (<3.5-35.0) ng/L Total Protein 6.8 (6.5-8.0) g/dL Albumin 4.3 (3.5-5.0) g/dL Lipase 69 (8-78) U/L Urine Color Urine Appearance Urine pH (5.0-8.0) Ur Specific [place] (1.005-1.025) Urine Protein (NEG-TRACE) MG/DL Urine Glucose (UA) (NEG) MG/DL Urine Ketones (NEG) MG/DL Urine Blood (NEG) Urine Nitrite (NEG) Ur Leukocyte Esterase (NEG) Urine Opiates Screen (Not Detect) Ur Barbiturates Screen (Not Detect) Ur Phencyclidine Scrn (Not Detect) Ur Amphetamines Screen (Not Detect) U Benzodiazepines Scrn (Not Detect) Urine Cocaine Screen (Not Detect) U Marijuana (THC) Screen (Not Detect) Ethyl Alcohol mg/dL 11/07/20 11/07/20 11/07/20 Range/Units 19:32 19:38 19:39 WBC (4.8-10.8) X10*3/uL RBC (4.60-5.80) X10*6/uL Hgb (14.0-18.0) g/dl Hct (42-52) % MCV (80-98) fL MCH (27.0-33.0) pg MCHC (31.0-36.0) g/dl RDW (11.0-16.0) % Plt Count (160-400) X10*3/uL MPV (9.4-12.4) fL Immature Gran % (Auto) (0.0-0.4) % Neut % (Auto) (45-73) % Lymph % (Auto) (20-40) % [place] % (Auto) (2-11) % Eos % (Auto) (0-4) % Baso % (Auto) (0-2) % Lymph # (Auto) (1.2-4.9) X10*3/uL [place] # (Auto) (0.1-1.2) X10*3/uL Eos # (Auto) (0.0-0.4) X10*3/uL Baso # (Auto) (0.0-0.2) X10*3/uL Abs Immat Gran (auto) (0.00-0.03) X10*3/uL Absolute Neuts (auto) (2.0-8.3) X10*3/uL Absolute Nucleated RBC (0.0-0.012) X10*3/uL Nucleated RBC % (auto) (0.0-0.2) /100WBC Sodium (135-145) mmol/L Potassium (3.3-5.1) mmol/l Chloride (96-108) mmol/L Carbon Dioxide (22-29) mmol/L Anion Gap (12-20) BUN (9-16) mg/dL Creatinine (0.5-1.4) mg/dL Estim Creat Clear Calc Estimated GFR Random Glucose (60-115) mg/dL Calcium (8.4-10.2) mg/dL Total Bilirubin (0.0-1.0) mg/dL Direct Bilirubin (0.0-0.5) mg/dL AST (5-37) U/L ALT (0-40) U/L Alkaline Phosphatase (39-117) U/L Troponin I High Sens (<3.5-35.0) ng/L Total Protein (6.5-8.0) g/dL Albumin (3.5-5.0) g/dL Lipase (8-78) U/L Urine Color YELLOW Urine Appearance CLEAR Urine pH 6.5 (5.0-8.0) Ur Specific [place] 1.010 (1.005-1.025) Urine Protein NEG (NEG-TRACE) MG/DL Urine Glucose (UA) NEG (NEG) MG/DL Urine Ketones NEG (NEG) MG/DL Urine Blood NEG (NEG) Urine Nitrite NEG (NEG) Ur Leukocyte Esterase NEG (NEG) Urine Opiates Screen Not Detected (Not Detect) Ur Barbiturates Screen Not Detected (Not Detect) Ur Phencyclidine Scrn Not Detected (Not Detect) Ur Amphetamines Screen Not Detected (Not Detect) U Benzodiazepines Scrn Not Detected (Not Detect) Urine Cocaine Screen POSITIVE H (Not Detect) U Marijuana (THC) Screen Not Detected (Not Detect) Ethyl Alcohol < 10 mg/dL ECG Data ECG #1: Attestation: I personally reviewed and interpreted this ECG as follows: (Sinus rhythm, heart rate 78, QTC 419, nonspecific T-wave abnormalities, occasional PVCs) Discharge Plan Discharge Clinical Impression: Cocaine use Chest pain Qualifiers: Chest pain type: unspecified Qualified Code(s): R07.9 - Chest pain, unspecified Patient Disposition: Home, Self-Care Instructions: Chest Pain (ED) Additional Instructions: Please follow-up with your primary care physician tomorrow. If you have any worsening or new symptoms, please return to the emergency room or call 911 Prescriptions: No Action hydrocodone-acetaminophen 5-325 mg tablet 1 tab PO Q6H PRN (Reason: pain) Qty: 12 RF: 0 ondansetron 4 mg tablet,disintegrating 4 mg PO Q8H PRN (Reason: nausea and vomiting) Qty: 20 RF: 0 metronidazole [Flagyl] 500 mg tablet 500 mg PO Q12H 7 Days Qty: 14 RF: 0 levofloxacin 250 mg tablet 250 mg PO DAILY 7 Days Qty: 7 RF: 0 sennosides [senna] 8.6 mg tablet 8.6 mg PO BEDTIME PRN (Reason: constipation) Qty: 30 RF: 0 lorazepam [Ativan] 1 mg tablet 1 mg PO BID PRN (Reason: anxiety) Qty: 14 RF: 0 metformin 500 mg tablet extended release 24 hr 500 mg PO BID RF: 0 Cerovite Advanced Formula 18-400 mg-mcg tablet PO RF: 0 melatonin 5 mg tablet PO RF: 0 aspirin 81 mg tablet,delayed release (DR/EC) 81 mg PO BEDTIME RF: 0 atorvastatin 20 mg tablet 20 mg PO DAILY RF: 0 losartan 50 mg tablet 50 mg PO DAILY RF: 0 Fish Oil 340-1,000 mg capsule 1 cap PO BID RF: 0 gabapentin 100 mg capsule 200 mg PO BID RF: 0 nicotine 14 mg/24 hr patch 24 hour 0 patch topical RF: 0 naproxen 500 mg tablet 500 mg PO BID RF: 0 mirtazapine 30 mg tablet 30 mg PO BEDTIME RF: 0 chlorthalidone 25 mg tablet 25 mg PO DAILY RF: 0
[2020-11-07] MEDS: Lidocaine HCl Viscous 2 % 15 ML SOLUTION MUCOUS MEM (19:17)
[2020-11-07] MEDS: Magnesium Hydrox/Alum Hydrox 30 ML ORAL.SUSP PO (19:17)
[2020-11-07 19:39] LABS: MANUAL DIFF FLAG NO
[2020-11-07 19:41] VITALS: BP 124/54; PULSE 61; RESP 14; O2SAT 99
[2020-11-07 19:43] LABS: Basophils Percent Auto 0.1 % (0-2); Eosinophils Absolute Auto 0.1 X10*3/uL (0.0-0.4); Eosinophils Percent Auto 1.5 % (0-4); Hematocrit 40.1 % (42-52); Hemoglobin 13.4 g/dl (14.0-18.0); Imm Gran Abs Auto 0.02 X10*3/uL (0.00-0.03); Imm Gran Pct Auto 0.3 % (0.0-0.4); Lymphocytes Absolute Auto 1.9 X10*3/uL (1.2-4.9); Lymphocytes Percent Auto 27.2 % (20-40); Mean Corpuscular HGB Conc 33.4 g/dl (31.0-36.0); Mean Corpuscular Volume 92.8 fL (80-98); Mean Platelet Volume 11.2 fL (9.4-12.4); Monocytes Absolute Auto 0.5 X10*3/uL (0.1-1.2); Neutrophils Absolute Auto 4.5 X10*3/uL (2.0-8.3); Neutrophils Percent Auto 63.9 % (45-73); Platelet Count 171 X10*3/uL (160-400); Red Blood Count 4.32 X10*6/uL (4.60-5.80); Red Cell Distribution Width 13.3 % (11.0-16.0); White Blood Count 7.1 X10*3/uL (4.8-10.8)
[2020-11-07 19:55] LABS: Glucose Urine UA NEG (NEG); Leukocyte Esterase Urine NEG (NEG); Nitrite Urine NEG (NEG); PH 6.5 (5.0-8.0); Urine Blood NEG (NEG); Urine Ketones NEG (NEG); Urine Protein NEG (NEG-TRACE)
[2020-11-07 19:56] LABS: Appearance Urine CLEAR; Color Urine YELLOW
[2020-11-07 20:00] VITALS: PULSE 62; RESP 12; O2SAT 98
--- NOTE | 2020-11-07 20:07 | PC.NURSE ---
REPORT TAKEN FROM ADEEL MCKAY, FIRST CONTACT WITH PT, SITTING UP IN BED, A&Ox4, SKIN PWD RESPIRATIONS EVEN UNLABORED. REPORTS DECREASED PAIN CURRENTLY 4/10 UPPER ABD PAIN. AWAITING LAB RESULTS. AWARE OF PLAN OF CARE.
[2020-11-07 20:13] LABS: Ethanol < 10 mg/dL
[2020-11-07 20:16] LABS: Alanine Aminotransferase 29 U/L (0-40); Albumin Level 4.3 g/dL (3.5-5.0); Alkaline Phosphatase 62 U/L (39-117); Anion Gap 12 (12-20); Aspartate Amino Transferase 24 U/L (5-37); Bilirubin Direct 0.2 mg/dL (0.0-0.5); Bilirubin Total 0.5 mg/dL (0.0-1.0); Blood Urea Nitrogen 23 mg/dL (9-16); Calcium 9.2 mg/dL (8.4-10.2); Carbon Dioxide 29 mmol/L (22-29); Chloride 101 mmol/L (96-108); Estimated Glomerular Filt Rate 53; Glucose Random 105 mg/dL (60-115); Lipase 69 U/L (8-78); Potassium 3.3 mmol/l (3.3-5.1); Sodium 139 mmol/L (135-145); Total Protein 6.8 g/dL (6.5-8.0)
[2020-11-07 20:20] LABS: Amphetamine Screen Urine Not Detected (Not Detect); Barbiturates, Urine Not Detected (Not Detect); Benzodiazepines Screen Urine Not Detected (Not Detect); Cannabinoid Screen Urine Not Detected (Not Detect); Cocaine Screen Urine POSITIVE (Not Detect); Opiate Screen Urine Not Detected (Not Detect); Phencyclidine Screen Urine Not Detected (Not Detect)
[2020-11-07 20:22] LABS: Troponin-I High Sensitivity < 3.5 ng/L (<3.5-35.0)
== END 2020-11-07 20:51 | disposition home or self-care (01) ==
PROVIDERS: Emergency Provider Emergency Medicine
DX: F14.10 Cocaine abuse, uncomplicated (principal); R07.9 Chest pain, unspecified; E10.9 Type 1 diabetes mellitus without complications; Z79.899 Other long term (current) drug therapy; Z79.84 Long term (current) use of oral hypoglycemic drugs
CPT/HCPCS: 36415; 80048; 80076; 80307; 80320; 81003; 83690; 84484; 85025; 93005; 99284

== ENCOUNTER 2021-01-02 10:24 | Outpatient (REF) | payer MEDICARE, MEDICAID, SELFPAY ==
[2021-01-02 14:10] LABS: Alanine Aminotransferase 27 U/L (0-40); Albumin Level 4.2 g/dL (3.5-5.0); Alkaline Phosphatase 62 U/L (39-117); Anion Gap 13 (12-20); Aspartate Amino Transferase 20 U/L (5-37); Bilirubin Total 0.6 mg/dL (0.0-1.0); Blood Urea Nitrogen 17 mg/dL (9-16); Calcium 9.5 mg/dL (8.4-10.2); Carbon Dioxide 30 mmol/L (22-29); Chloride 103 mmol/L (96-108); Estimated Glomerular Filt Rate 43; Glucose Random 96 mg/dL (60-115); Potassium 4.6 mmol/L (3.3-5.1); Sodium 141 mmol/L (135-145); Total Protein 6.5 g/dL (6.5-8.0)
== END 2021-01-02 10:25 | disposition home or self-care (01) ==
LOC: HO.WFDLDS 10:24
PROVIDERS: PCP Family Medicine; Visit Provider Family Medicine
DX: R10.33 Periumbilical pain (principal)
CPT/HCPCS: 36415; 80053

== ENCOUNTER 2021-01-06 19:13 | Emergency (ER) | payer MEDICARE, MEDICAID, SELFPAY ==
--- NOTE | 2021-01-06 19:48 | ECG_ITS ---
Test Reason : CHEST PAIN Blood Pressure : / mmHG Vent. Rate : 077 BPM Atrial Rate : 077 BPM P-R Int : 138 ms QRS Dur : 074 ms QT Int : 356 ms P-R-T Axes : 034 -17 065 degrees QTc Int : 402 ms Sinus rhythm with occasional Premature ventricular complexes Otherwise normal ECG When compared with ECG of 07-NOV-2020 17:19, Nonspecific T wave abnormality no longer evident in Inferior leads Nonspecific T wave abnormality no longer evident in Lateral leads Referred By: Charles Tate Electronically Signed By:JAN PERERA MD
== END 2021-01-07 00:35 | disposition left against medical advice (07) ==
PROVIDERS: Emergency Provider Emergency Medicine
DX: R07.9 Chest pain, unspecified (principal)
CPT/HCPCS: 93005; 99283

== ENCOUNTER 2021-01-10 12:20 | Emergency (ER) | payer MEDICARE, SELFPAY ==
--- NOTE | ~2021-01-10 | XR_ITS ---
EXAMINATION: XR CHEST CLINICAL INFORMATION: Chest pain. COMPARISON: 07/30/2019 portable chest. TECHNIQUE: Frontal view of the chest was obtained. FINDINGS: No significant abnormality is noted involving the heart, lungs, mediastinum, bony thorax or soft tissues. XR/XR chest 1V IMPRESSION: No acute cardiopulmonary process.
--- NOTE | 2021-01-10 12:45 | ECG_ITS ---
Test Reason : CHEST PAIN Blood Pressure : / mmHG Vent. Rate : 073 BPM Atrial Rate : 073 BPM P-R Int : 148 ms QRS Dur : 078 ms QT Int : 386 ms P-R-T Axes : 021 -28 066 degrees QTc Int : 425 ms Sinus rhythm with Premature atrial complexes Possible Left atrial enlargement Borderline ECG When compared with ECG of 30-JUL-2019 17:15, Premature atrial complexes are now Present Nonspecific T wave abnormality no longer evident in Inferior leads Nonspecific T wave abnormality, improved in Lateral leads QT has lengthened Referred By: Renetta Briggs Electronically Signed By:JAN PERERA MD
[2021-01-10 12:49] VITALS: BP 122/67; PULSE 638; RESP 18; TEMP 36.4; O2SAT 99; BMI 22.3
--- NOTE | 2021-01-10 19:49 | ED_ITS ---
HPI - Chest Pain General Chief Complaint: Chest Pain Stated Complaint: Chest Pain Source: patient Mode of arrival: ambulatory Limitations: language barrier History of Present Illness HPI narrative: 75-year-old male with past medical history of hypertension and diabetes presents with left-sided chest pain that is sharp, stabbing, intermittent for 4 days. Received this COVID-19 vaccine shortly before the pain presented. Did not describe any fevers, chills, shortness of breath, shortness breath on exertion, abdominal pain, abdominal distention, headaches, changes in vision, dizziness, weakness, diaphoresis, and edema. MD complaint: chest pain Onset (ago): day(s) (4) Timing of current episode: episodic Prior episodes: No Pain location: left chest Pain radiation: none Severity: moderate Quality: sharp and shooting Relieving factors: nothing Treatment prior to arrival: none Related Data Previous Rx's Medication Instructions Recorded tramadol 50 mg PO BEDTIME #5 tab 01/10/21 Allergies Allergy/AdvReac Type Severity Reaction Status Date / Time No Known Allergies Allergy Verified 01/10/21 12:49 [No Known Allergies*] Review of Systems Review of Systems: Constitutional: No Weight loss, No Fever, No Chills, No Night Sweats, No Fatigue, No Malaise ENT/Mouth: No Hearing loss, No Ear Pain, No Nasal Congestion, No Sinus Pain, No Hoarseness, No sore throat, No Rhinorrhea, No Swallowing Difficulty Eyes: No Eye Pain, No Swelling, No Redness, No Foreign Body, No Discharge, No Vision Changes Cardiovascular: Positive sharp intermittent left-sided Chest Pain, no SOB, no Dyspnea on Exertion, No Orthopnea, No Edema, No Palpitations Respiratory: No Cough, No Sputum, No Wheezing, No Smoke Exposure, No Dyspnea Gastrointestinal: pos Nausea, No Vomiting, No Diarrhea, No abdominal Pain, No Hematochezia, No Melena Genitourinary: No irregular bleeding, No Dysuria, No Urinary Frequency, No Hematuria, No Urinary Incontinence, No Urgency, No Flank Pain, No Urinary Flow Changes, No Hesitancy Musculoskeletal: No joint pain, No Myalgias, No Joint Swelling Skin: No Skin Lesions, No rash Neuro: No Weakness, No Numbness, No Paresthesias, No Loss of Consciousness, No Dizziness, No Headache Psych: No Anxiety/Panic, No Depression, No SI/HI/AH/VH Heme/Lymph: No Bruising, No Bleeding,No Lymphadenopathy Endocrine: No Polyuria, No Polydipsia, No Temperature Intolerance Yes all other systems are reviewed and are negative [facility] Past Medical History Attestation statement: The following information was validated with the patient. Source: old records reviewed Medical History (Updated 01/10/21 @ 22:43 by Renetta Briggs NP) Diabetes HTN (hypertension) Social History Social History Smoking Status: Never smoker Use of substances other than those prescribed or required for medical reasons: No Advance Directives: No Advance Directives Information Provided: Yes Physical Exam Vital Signs: Vital Signs: Last Vital Signs Temp 97.6 F 01/10/21 12:49 Pulse 58 01/10/21 22:00 Resp 14 01/10/21 22:00 BP 159/82 H 01/10/21 22:00 Pulse Ox 98 01/10/21 22:00 Body Mass Index 22.3 Appearance: Alert. Oriented X3. No acute distress. Eyes: Pupils equal, round and reactive to light. EOMI, sclera nonicteric ENT: Pharynx normal. Neck: Normal inspection. Neck supple. No JVD CVS: Normal heart rate and rhythm. Pulses normal. Respiratory: No respiratory distress. Lung sounds clear to auscultation all lobes. Reproducible chest pain to palpation to the left side Abdomen: Soft and nontender. Skin: Skin warm and dry. Normal skin color. Normal skin turgor. Extremities: No lower extremity edema. Neuro: No motor deficit. No sensory deficit. Course Course Course Narrative: 75-year-old male with past medical history hypertension and diabetes presents with 4 days of intermittent sharp stabbing left-sided chest pain EKG was completed upon arrival at 12:49 p.m.. My evaluation was at 8:20 p.m. when he was brought into the emergency department. Will rule out ACS, ordered chest x-ray, repeat EKG. Lab values are unremarkable, H&H 12.2/36.3 prior lab value in October of 2019 with 14/42. He does not describe any rectal bleeding, or abnormal bruising. EKG is normal sinus, troponin is 0. COVID test is negative, urinalysis negative. Plan of care is to discharge with suspicion of costochondritis or possible vaccine reaction will treat with tramadol. This case was discussed with Dr. Quick and he agrees with this plan. director statistical programming utilized for all correspondence. Google translate utilized for discharge instructions. MDM - Chest Pain Differential Diagnosis Differential diagnosis: Likely fracture of rib, pneumothorax, atypical chest pain, st elevation myocardial infarction and costochondritis Medical Records Data Attestation: I reviewed the patient's medical records. Lab Data Attestation: I reviewed the patient's lab results. Result diagrams: 01/10/21 20:52 01/10/21 20:52 Labs: Lab Results 01/10/21 01/10/21 01/10/21 Range/Units 20:52 20:52 20:52 WBC 7.2 (4.8-10.8) X10*3/uL RBC 3.86 L (4.60-5.80) X10*6/uL Hgb 12.2 L (14.0-18.0) g/dl Hct 36.3 L (42-52) % MCV 94.0 (80-98) fL MCH 31.6 (27.0-33.0) pg MCHC 33.6 (31.0-36.0) g/dl RDW 13.6 (11.0-16.0) % Plt Count 187 (160-400) X10*3/uL MPV 10.9 (9.4-12.4) fL Immature Gran % (Auto) 0.3 (0.0-0.4) % Neut % (Auto) 53.8 (45-73) % Lymph % (Auto) 34.1 (20-40) % Richardson % (Auto) 8.8 (2-11) % Eos % (Auto) 2.7 (0-4) % Baso % (Auto) 0.3 (0-2) % Lymph # (Auto) 2.4 (1.2-4.9) X10*3/uL Richardson # (Auto) 0.6 (0.1-1.2) X10*3/uL Eos # (Auto) 0.2 (0.0-0.4) X10*3/uL Baso # (Auto) 0.0 (0.0-0.2) X10*3/uL Abs Immat Gran (auto) 0.02 (0.00-0.03) X10*3/uL Absolute Neuts (auto) 3.9 (2.0-8.3) X10*3/uL Absolute Nucleated RBC 0.020 H (0.0-0.012) X10*3/uL Nucleated RBC % (auto) 0.3 H (0.0-0.2) /100WBC PT 10.4 L (10.8-13.0) SEC INR 0.9 (0.9-1.1) APTT 25.8 (24.1-38.0) SEC Sodium 142 (135-145) mmol/L Potassium 4.0 (3.3-5.1) mmol/L Chloride 105 (96-108) mmol/L Carbon Dioxide 28 (22-29) mmol/L Anion Gap 13 (12-20) BUN 14 (9-16) mg/dL Creatinine 1.36 (0.5-1.4) mg/dL Estim Creat Clear Calc 49.6 Estimated GFR 51 Random Glucose 120 H (60-115) mg/dL Calcium 8.6 (8.4-10.2) mg/dL Magnesium 1.8 (1.6-2.6) mg/dL Total Bilirubin 0.3 (0.0-1.0) mg/dL Direct Bilirubin 0.2 (0.0-0.5) mg/dL AST 30 (5-37) U/L ALT 35 (0-40) U/L Alkaline Phosphatase 64 (39-117) U/L Troponin I High Sens (<3.5-35.0) ng/L Total Protein 6.5 (6.5-8.0) g/dL Albumin 4.2 (3.5-5.0) g/dL Lipase 69 (8-78) U/L Urine Color Urine Appearance Urine pH (5.0-8.0) Ur Specific [place] (1.005-1.025) Urine Protein (NEG-TRACE) MG/DL Urine Glucose (UA) (NEG) MG/DL Urine Ketones (NEG) MG/DL Urine Blood (NEG) Urine Nitrite (NEG) Ur Leukocyte Esterase (NEG) Coronavirus (PCR) (Negative) Influenza Type A (PCR) (Negative) Influenza Type B (PCR) (Negative) RSV RNA Qual (PCR) (Negative) 02/01/10/21 01/10/21 Range/Units 20:52 20:52 20:52 WBC (4.8-10.8) X10*3/uL RBC (4.60-5.80) X10*6/uL Hgb (14.0-18.0) g/dl Hct (42-52) % MCV (80-98) fL MCH (27.0-33.0) pg MCHC (31.0-36.0) g/dl RDW (11.0-16.0) % Plt Count (160-400) X10*3/uL MPV (9.4-12.4) fL Immature Gran % (Auto) (0.0-0.4) % Neut % (Auto) (45-73) % Lymph % (Auto) (20-40) % Richardson % (Auto) (2-11) % Eos % (Auto) (0-4) % Baso % (Auto) (0-2) % Lymph # (Auto) (1.2-4.9) X10*3/uL Richardson # (Auto) (0.1-1.2) X10*3/uL Eos # (Auto) (0.0-0.4) X10*3/uL Baso # (Auto) (0.0-0.2) X10*3/uL Abs Immat Gran (auto) (0.00-0.03) X10*3/uL Absolute Neuts (auto) (2.0-8.3) X10*3/uL Absolute Nucleated RBC (0.0-0.012) X10*3/uL Nucleated RBC % (auto) (0.0-0.2) /100WBC PT (10.8-13.0) SEC INR (0.9-1.1) APTT (24.1-38.0) SEC Sodium (135-145) mmol/L Potassium (3.3-5.1) mmol/L Chloride (96-108) mmol/L Carbon Dioxide (22-29) mmol/L Anion Gap (12-20) BUN (9-16) mg/dL Creatinine (0.5-1.4) mg/dL Estim Creat Clear Calc Estimated GFR Random Glucose (60-115) mg/dL Calcium (8.4-10.2) mg/dL Magnesium (1.6-2.6) mg/dL Total Bilirubin (0.0-1.0) mg/dL Direct Bilirubin (0.0-0.5) mg/dL AST (5-37) U/L ALT (0-40) U/L Alkaline Phosphatase (39-117) U/L Troponin I High Sens < 3.5 (<3.5-35.0) ng/L Total Protein (6.5-8.0) g/dL Albumin (3.5-5.0) g/dL Lipase (8-78) U/L Urine Color YELLOW Urine Appearance CLEAR Urine pH 6.5 (5.0-8.0) Ur Specific [place] <= 1.005 (1.005-1.025) Urine Protein NEG (NEG-TRACE) MG/DL Urine Glucose (UA) 100 H (NEG) MG/DL Urine Ketones NEG (NEG) MG/DL Urine Blood NEG (NEG) Urine Nitrite NEG (NEG) Ur Leukocyte Esterase NEG (NEG) Coronavirus (PCR) NEGATIVE (Negative) Influenza Type A (PCR) NEGATIVE (Negative) Influenza Type B (PCR) NEGATIVE (Negative) RSV RNA Qual (PCR) NEGATIVE (Negative) Imaging Data Chest x-ray: Attestation: I personally reviewed and interpreted this imaging study as f nilos: Radiologist's impression: EXAMINATION: XR CHEST CLINICAL INFORMATION: Chest pain. COMPARISON: 07/30/2019 portable chest. TECHNIQUE: Frontal view of the chest was obtained. FINDINGS: No significant abnormality is noted involving the heart, lungs, mediastinum, bony thorax or soft tissues. XR/XR chest 1V IMPRESSION: No acute cardiopulmonary process. ECG Data ECG #1: Attestation: I personally reviewed and interpreted this ECG as follows: ECG interpretation date: 01/10/21 ECG interpretation time: 12:49 Interpretation: Vent. rate 73 BPM W[place] interval 148 ms QRS duration 78 ms QT/QTc 386/425 ms P-R-T axes 21 -28 66 Sinus rhythm with Premature atrial complexes Possible Left atrial enlargement Borderline ECG When compared with ECG of 30-JUL-2019 17:15, Premature atrial complexes are now Present Nonspecific T wave abnormality no longer evident in Inferior leads Nonspecific T wave abnormality, improved in Lateral leads QT has lengthened ECG #2: Attestation: I personally reviewed and interpreted this ECG as follows: ECG interpretation date: 01/10/21 ECG interpretation time: 20:26 Prior ECG tracings: available for review Interpretation: Vent. rate 74 BPM WY interval 134 ms QRS duration 80 ms QT/QTc 388/430 ms P-R-T axes 6 -22 58 Normal sinus rhythm Normal ECG Discharge Plan Discharge Clinical Impression: Costalchondritis Patient Disposition: Home, Self-Care Instructions: Costochondritis (ED) Additional Instructions: You were evaluated for chest pain to the left chest wall after receiving a COVID-19 vaccine the cardiac enzymes are negative, 2 EKGs are negative for acute findings or indication of ischemia. Lab values are normal, COVID test negative Your condition is highly suspicious for costochondritis. Please follow-up with your primary care physician in 3-5 days. We prescribed tramadol for pain management. This medication as narcotics and has high risk for addiction and abuse. Do not drive or operate machinery while taking this medication. Thank you for choosing this emergency department for evaluation. Please follow-up with primary care physician as needed. Return to the emergency department for any new, concerning, or worsening symptoms. Prescriptions: New tramadol 50 mg tablet 50 mg PO BEDTIME Qty: 5 RF: 0 Interventions: ED Discharge Assessment Last Done: 01/10/21 22:54
--- NOTE | 2021-01-10 19:49 | ECG_ITS ---
Test Reason : CHEST PAIN Blood Pressure : / mmHG Vent. Rate : 074 BPM Atrial Rate : 074 BPM P-R Int : 134 ms QRS Dur : 080 ms QT Int : 388 ms P-R-T Axes : 006 -22 058 degrees QTc Int : 430 ms Normal sinus rhythm Normal ECG When compared to the previous EKG of No significant changes seen Referred By: Renetta Briggs Electronically Signed By:JAN PERERA MD
[2021-01-10 20:26] VITALS: BP 160/93; PULSE 69; PULSE 73; RESP 17; O2SAT 96
[2021-01-10 20:58] LABS: MANUAL DIFF FLAG NO
[2021-01-10 21:00] LABS: Basophils Percent Auto 0.3 % (0-2); Eosinophils Absolute Auto 0.2 X10*3/uL (0.0-0.4); Eosinophils Percent Auto 2.7 % (0-4); Hematocrit 36.3 % (42-52); Hemoglobin 12.2 g/dl (14.0-18.0); Imm Gran Abs Auto 0.02 X10*3/uL (0.00-0.03); Imm Gran Pct Auto 0.3 % (0.0-0.4); Lymphocytes Absolute Auto 2.4 X10*3/uL (1.2-4.9); Lymphocytes Percent Auto 34.1 % (20-40); Mean Corpuscular HGB Conc 33.6 g/dl (31.0-36.0); Mean Corpuscular Hemoglobin 31.6 pg (27.0-33.0); Mean Platelet Volume 10.9 fL (9.4-12.4); Monocytes Absolute Auto 0.6 X10*3/uL (0.1-1.2); Monocytes Percent Auto 8.8 % (2-11); NRBC Pct Auto 0.3 /100WBC (0.0-0.2); Neutrophils Absolute Auto 3.9 X10*3/uL (2.0-8.3); Neutrophils Percent Auto 53.8 % (45-73); Platelet Count 187 X10*3/uL (160-400); Red Blood Count 3.86 X10*6/uL (4.60-5.80); Red Cell Distribution Width 13.6 % (11.0-16.0); White Blood Count 7.2 X10*3/uL (4.8-10.8)
[2021-01-10 21:12] LABS: INTERNATIONAL NORM RATIO 0.9 (0.9-1.1); Prothrombin Time 10.4 SEC (10.8-13.0)
[2021-01-10 21:14] LABS: Partial Thromboplastin Time 25.8 SEC (24.1-38.0)
[2021-01-10 21:16] LABS: Glucose Urine UA 100 MG/DL (NEG); Leukocyte Esterase Urine NEG (NEG); Nitrite Urine NEG (NEG); PH 6.5 (5.0-8.0); Specific Gravity - Urine <= 1.005 (1.005-1.025); Urine Blood NEG (NEG); Urine Ketones NEG (NEG); Urine Protein NEG (NEG-TRACE)
[2021-01-10 21:21] LABS: Appearance Urine CLEAR; Color Urine YELLOW
[2021-01-10 21:25] LABS: Alanine Aminotransferase 35 U/L (0-40); Albumin Level 4.2 g/dL (3.5-5.0); Alkaline Phosphatase 64 U/L (39-117); Anion Gap 13 (12-20); Aspartate Amino Transferase 30 U/L (5-37); Bilirubin Direct 0.2 mg/dL (0.0-0.5); Bilirubin Total 0.3 mg/dL (0.0-1.0); Blood Urea Nitrogen 14 mg/dL (9-16); Calcium 8.6 mg/dL (8.4-10.2); Carbon Dioxide 28 mmol/L (22-29); Chloride 105 mmol/L (96-108); Creatinine Clr Calc Pharmacy 49.6; Estimated Glomerular Filt Rate 51; Glucose Random 120 mg/dL (60-115); Lipase 69 U/L (8-78); Magnesium 1.8 mg/dL (1.6-2.6); Sodium 142 mmol/L (135-145); Total Protein 6.5 g/dL (6.5-8.0)
[2021-01-10 21:32] LABS: Troponin-I High Sensitivity < 3.5 ng/L (<3.5-35.0)
[2021-01-10 21:41] LABS: Influenza A PCR NEGATIVE (Negative); Influenza B PCR NEGATIVE (Negative); Resp Syncy Virus RNA Qual PCR NEGATIVE (Negative); SARS COV2 PCR INHOUSE NEGATIVE (Negative)
[2021-01-10 22:00] VITALS: BP 159/82; PULSE 58; RESP 14; O2SAT 98
[2021-01-10] MEDS: Ketorolac Tromethamine 15 MG/ML VIAL IVPUSH (23:06)
[2021-01-10] MEDS: traMADoL HCL 50 MG TABLET PO (23:07)
== END 2021-01-10 23:31 | disposition home or self-care (01) ==
PROVIDERS: Nurse Practitioner Family; Emergency Provider Emergency Medicine; PCP Family Medicine
DX: M94.0 Chondrocostal junction syndrome [Tietze] (principal); Z20.822 Contact with and (suspected) exposure to COVID-19; I10 Essential (primary) hypertension; E11.9 Type 2 diabetes mellitus without complications
CPT/HCPCS: 0241U; 36415; 71045; 80048; 80076; 81003; 83690; 83735; 84484; 85025; 85610; 85730; 93005; 96374; 99284; 99285; J1885

== ENCOUNTER 2021-01-24 12:37 | Outpatient (REF) | payer MEDICARE, MEDICAID, SELFPAY ==
--- NOTE | ~2021-01-24 | XR_ITS ---
EXAMINATION: XR CHEST CLINICAL INFORMATION: Acute lower respiratory infection. COMPARISON: 08/06/2014. TECHNIQUE: 2 views of the chest were obtained. FINDINGS: No significant abnormality is noted involving the heart, lungs, mediastinum, bony thorax or soft tissues. XR/XR chest 2V IMPRESSION: No acute cardiopulmonary process.
== END 2021-01-24 12:38 | disposition home or self-care (01) ==
LOC: HO.XRAY 12:37
PROVIDERS: PCP Family Medicine; Visit Provider Emergency Medicine
DX: J22 Unspecified acute lower respiratory infection (principal)
CPT/HCPCS: 71046

== ENCOUNTER 2021-02-07 11:49 | Outpatient (REF) | payer MEDICARE, MEDICAID, SELFPAY ==
[2021-02-07 14:02] LABS: Alanine Aminotransferase 26 U/L (0-40); Albumin Level 4.5 g/dL (3.5-5.0); Alkaline Phosphatase 77 U/L (39-117); Anion Gap 15 (12-20); Aspartate Amino Transferase 22 U/L (5-37); Bilirubin Total 0.5 mg/dL (0.0-1.0); Blood Urea Nitrogen 26 mg/dL (9-16); Carbon Dioxide 26 mmol/L (22-29); Chloride 104 mmol/L (96-108); Estimated Glomerular Filt Rate 43; Glucose Random 113 mg/dL (60-115); Potassium 4.2 mmol/L (3.3-5.1); Sodium 141 mmol/L (135-145); Total Protein 7.1 g/dL (6.5-8.0)
== END 2021-02-07 11:50 | disposition home or self-care (01) ==
LOC: HO.WFDLDS 11:49
PROVIDERS: Visit Provider Family Medicine
DX: E86.0 Dehydration (principal)
CPT/HCPCS: 36415; 80053

== ENCOUNTER → 2021-02-28 09:31 | Outpatient (BNVA) | payer MEDICARE, MEDICAID, SELFPAY | PROVIDERS: PCP Family Medicine; Visit Provider Nurse Practitioner Family | DX: R09.89 Other specified symptoms and signs involving the circulatory and respiratory systems (principal); I49.3 Ventricular premature depolarization; K92.1 Melena | CPT/HCPCS: 99202 ==

== ENCOUNTER 2021-03-27 09:07 | Outpatient (REF) | payer MEDICARE, MEDICAID, SELFPAY ==
--- NOTE | ~2021-03-27 | US_ITS ---
EXAMINATION: US ABDOMEN COMPLETE CLINICAL INFORMATION: Elevated liver function. COMPARISON: Previous CT September 2020 TECHNIQUE: Real-time imaging of the abdominal viscera. FINDINGS: PANCREAS: Normal. ABDOMINAL AORTA: The proximal, mid, and distal segments are normal in caliber. INFERIOR VENA CAVA: Visualized portions are normal. LIVER: Liver echotexture is increased. The liver is normal in size. The liver contour is normal. No focal hepatic lesion. There is no intrahepatic biliary duct dilatation seen. GALLBLADDER: Normal. The gallbladder is physiologically distended without evidence of stones, sludge, polyps, wall thickening or pericholecystic fluid. COMMON BILE DUCT: Normal in caliber measuring 0.4 cm in diameter. RIGHT KIDNEY: Normal. No hydronephrosis. No renal calculi or focal parenchymal lesions. The kidney measures 9.6 cm in maximum dimension. LEFT KIDNEY: Normal. No hydronephrosis. No renal calculi or focal parenchymal lesions. The kidney measures 10.5 cm in maximum dimension. SPLEEN: Normal. The spleen measures 9.1 cm in maximum dimension. FREE FLUID: None. US/US abdomen complete IMPRESSION: Echogenic liver. Differential would include fatty infiltration and hepatocellular disease. Otherwise unremarkable exam.
== END 2021-03-27 09:08 | disposition home or self-care (01) ==
LOC: HO.US 09:07
PROVIDERS: PCP Family Medicine; Visit Provider Family Medicine
DX: R74.01 Elevation of levels of liver transaminase levels (principal)
CPT/HCPCS: 76700

== ENCOUNTER → 2021-04-18 10:58 | Outpatient (BNVA) | payer MEDICARE, MEDICAID, SELFPAY | PROVIDERS: PCP Family Medicine; Referring Provider Family Medicine; Visit Provider Physician Assistant | DX: K92.1 Melena (principal); K21.9 Gastro-esophageal reflux disease without esophagitis; Z78.9 Other specified health status | CPT/HCPCS: 99212 ==

== ENCOUNTER 2021-09-07 14:59 | Emergency (ER) | payer OTHER, MEDICARE, SELFPAY ==
--- NOTE | 2021-09-07 15:41 | PC.NURSE ---
called to triage for 2nd time with no answer
[2021-09-07 16:24] VITALS: BP 92/65; PULSE 100; RESP 16; TEMP 37; O2SAT 97; BMI 22.3
[2021-09-07] MEDS: Ketorolac Tromethamine 15 MG/ML VIAL 30 MG IM (17:02)
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
[2021-09-07 17:07] VITALS: BP 118/62; PULSE 89; RESP 16; O2SAT 98
== END 2021-09-07 18:10 | disposition home or self-care (01) ==
PROVIDERS: Emergency Provider Emergency Medicine; PCP Family Medicine
DX: M79.10 Myalgia, unspecified site (principal); F14.10 Cocaine abuse, uncomplicated; I10 Essential (primary) hypertension; F17.210 Nicotine dependence, cigarettes, uncomplicated; E11.9 Type 2 diabetes mellitus without complications; Z71.6 Tobacco abuse counseling; Z79.899 Other long term (current) drug therapy
CPT/HCPCS: 96372; 99284; J1885

== ENCOUNTER 2021-09-07 19:05 | Emergency (ER) | payer OTHER, MEDICARE, SELFPAY ==
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
[2021-09-07 19:12] VITALS: BP 140/98; BP 142/92; PULSE 89; PULSE 90; RESP 18; TEMP 36.8; O2SAT 100; O2SAT 98; BMI 22.1
[2021-09-07] MEDS: Lidocaine HCl 1 % MPF 5 ML VIAL SUBCUT (20:07)
[2021-09-07] MEDS: Diphth,Pertus(ACell),Tet Adult 0.5 ML SYRINGE IM (20:07)
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
== END 2021-09-07 23:29 | disposition home or self-care (01) ==
PROVIDERS: Emergency Provider Internal Medicine
DX: S01.81XA Laceration without foreign body of other part of head, initial encounter (principal); G44.309 Post-traumatic headache, unspecified, not intractable; F17.210 Nicotine dependence, cigarettes, uncomplicated; F14.10 Cocaine abuse, uncomplicated; M54.2 Cervicalgia; V43.52XA Car driver injured in collision with other type car in traffic accident, initial encounter; Y93.9 Activity, unspecified; Y92.410 Unspecified street and highway as the place of occurrence of the external cause; Y99.9 Unspecified external cause status; Z71.6 Tobacco abuse counseling; Z71.89 Other specified counseling; Z79.899 Other long term (current) drug therapy
CPT/HCPCS: 12011; 70450; 72125; 90471; 90715; 99284

== ENCOUNTER 2021-09-12 13:34 | Emergency (ER) | payer MEDICARE, MEDICAID, SELFPAY ==
[2021-09-12 13:50] VITALS: BP 118/73; PULSE 95; RESP 18; TEMP 36.3; O2SAT 97; BMI 22.3
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
== END 2021-09-12 14:11 | disposition home or self-care (01) ==
PROVIDERS: Emergency Provider Emergency Medicine
DX: Z48.02 Encounter for removal of sutures (principal); S01.81XD Laceration without foreign body of other part of head, subsequent encounter; V49.9XXD Car occupant (driver) (passenger) injured in unspecified traffic accident, subsequent encounter
CPT/HCPCS: 99283

== ENCOUNTER 2021-10-01 15:23 | Emergency (ER) | payer MEDICARE, MEDICAID, SELFPAY ==
[2021-10-01 15:26] VITALS: BP 141/80; PULSE 82; RESP 18; TEMP 36.6; O2SAT 98; BMI 21.6
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
== END 2021-10-01 16:37 | disposition home or self-care (01) ==
PROVIDERS: Emergency Provider Emergency Medicine; PCP Family Medicine
DX: M54.42 Lumbago with sciatica, left side (principal); E10.22 Type 1 diabetes mellitus with diabetic chronic kidney disease; I12.9 Hypertensive chronic kidney disease with stage 1 through stage 4 chronic kidney disease, or unspecified chronic kidney disease; N18.9 Chronic kidney disease, unspecified
CPT/HCPCS: 99283

== ENCOUNTER 2022-02-23 09:27 | Emergency (ER) | payer MEDICARE, MEDICAID, SELFPAY ==
--- NOTE | ~2022-02-23 | XR_ITS ---
EXAMINATION: XR CHEST CLINICAL INFORMATION: Chest pain. COMPARISON: 01/24/2021 chest radiographs. TECHNIQUE: Frontal view of the chest was obtained. FINDINGS: No significant abnormality is noted involving the heart, lungs, mediastinum, bony thorax or soft tissues. XR/XR chest 1V IMPRESSION: No acute cardiopulmonary process.
--- NOTE | 2022-02-23 09:30 | ECG_ITS ---
Test Reason : cp Blood Pressure : / mmHG Vent. Rate : 064 BPM Atrial Rate : 064 BPM P-R Int : 148 ms QRS Dur : 078 ms QT Int : 382 ms P-R-T Axes : 014 -35 068 degrees QTc Int : 394 ms Sinus rhythm with occasional Premature ventricular complexes Left axis deviation Abnormal ECG When compared with ECG of 06-JAN-2021 19:48, No significant change was found Referred By: Generic ED Physician Electronically Signed By:JAN PERERA MD
[2022-02-23 09:54] LABS: MANUAL DIFF FLAG NO
[2022-02-23 09:55] LABS: Basophils Percent Auto 0.4 % (0-2); Eosinophils Absolute Auto 0.2 X10*3/uL (0.0-0.4); Eosinophils Percent Auto 3.7 % (0-4); Hemoglobin 13.2 g/dl (14.0-18.0); Imm Gran Abs Auto 0.01 X10*3/uL (0.00-0.03); Imm Gran Pct Auto 0.2 % (0.0-0.4); Lymphocytes Absolute Auto 1.8 X10*3/uL (1.2-4.9); Lymphocytes Percent Auto 31.9 % (20-40); Mean Corpuscular Hemoglobin 30.9 pg (27.0-33.0); Mean Corpuscular Volume 93.7 fL (80.0-98.0); Mean Platelet Volume 10.7 fL (9.4-12.4); Monocytes Absolute Auto 0.5 X10*3/uL (0.1-1.2); Monocytes Percent Auto 9.3 % (2-11); Neutrophils Absolute Auto 3.1 x10*3/uL (2.0-8.3); Neutrophils Percent Auto 54.5 % (45-73); Platelet Count 171 X10*3/uL (160-400); Red Blood Count 4.27 X10*6/uL (4.60-5.80); Red Cell Distribution Width 13.2 % (11.0-16.0); White Blood Count 5.6 X10*3/uL (4.8-10.8)
[2022-02-23 10:02] VITALS: BP 162/88; PULSE 62; RESP 19; TEMP 36.6; O2SAT 99
[2022-02-23 10:12] LABS: Anion Gap 11 (12-20); Blood Urea Nitrogen 24 mg/dL (9-16); Calcium 9.4 mg/dL (8.4-10.2); Carbon Dioxide 29 mmol/L (22-29); Chloride 106 mmol/L (96-108); Estimated Glomerular Filt Rate 45; Glucose Random 100 mg/dL (60-115); Potassium 4.6 mmol/L (3.3-5.1); Sodium 141 mmol/L (135-145)
[2022-02-23 10:15] VITALS: BP 153/85; PULSE 69; RESP 16; O2SAT 99; BMI 25.8
[2022-02-23 10:17] LABS: Troponin-I High Sensitivity 8.5 ng/L (<3.5-35.0)
[2022-02-23 11:24] LABS: Alanine Aminotransferase 32 U/L (0-40); Albumin Level 4.3 g/dL (3.5-5.0); Alkaline Phosphatase 63 U/L (39-117); Aspartate Amino Transferase 30 U/L (5-37); Bilirubin Direct 0.2 mg/dL (0.0-0.5); Bilirubin Total 0.6 mg/dL (0.0-1.0)
[2022-02-23 11:43] VITALS: BP 168/89; PULSE 60; RESP 15; O2SAT 99
[2022-02-23 12:40] LABS: B Type Natriuretic Peptide 25 pg/mL (<100)
[2022-02-23 13:52] LABS: Troponin-I High Sensitivity 5.7 ng/L (<3.5-35.0)
--- NOTE | 2022-02-23 14:27 | ED.CHESTPAIN ---
HPI - Chest Pain General Chief Complaint: Chest Pain Stated Complaint: chest pain Time Seen by Provider: 02/23/22 10:49 Source: patient Mode of arrival: ambulatory History of Present Illness HPI narrative: 76-year-old male with a past medical history of ETOH abuse, appendicitis, cocaine abuse, diabetes, HTN, kidney disease, presenting to the ED complaining of intermittent CP since yesterday. Reports mild associated SOB. Denies nausea, vomiting, abdominal pain, pedal edema, calf pain, numbness, tingling, weakness, cough, fever MD complaint: chest pain Onset (ago): day(s) Related Data Home Medications Medication Instructions Recorded Confirmed aspirin 81 mg tablet,delayed 81 mg PO BEDTIME 09/01/20 04/18/21 release atorvastatin 20 mg tablet 20 mg PO DAILY 09/01/20 04/18/21 chlorthalidone 25 mg tablet 25 mg PO DAILY 09/01/20 04/18/21 gabapentin 100 mg capsule 200 mg PO BID 09/01/20 04/18/21 losartan 50 mg tablet 50 mg PO DAILY 09/01/20 04/18/21 melatonin 5 mg tablet mg PO 09/01/20 04/18/21 metformin 500 mg tablet,extended 500 mg PO BID 09/01/20 04/18/21 release 24 hr mirtazapine 30 mg tablet 30 mg PO BEDTIME 09/01/20 04/18/21 multivitamin-ferrous tab PO 09/01/20 04/18/21 fumarate-folic acid 18 mg-400 mcg tablet naproxen 500 mg tablet 500 mg PO BID 09/01/20 04/18/21 nicotine 14 mg/24 hr daily 0 patch TOPICAL 09/01/20 04/18/21 transdermal patch omega-3 fatty acids-fish oil 340 1 cap PO BID 09/01/20 04/18/21 mg-1,000 mg capsule flu vacc 2019-(65yr ml IM 12/19/20 04/18/21 up)-MF59C(PF) 60 mcg(15 mcgx4)/0.5 mL IM syringe Previous Rx's Medication Instructions Recorded levofloxacin 250 mg tablet 250 mg PO DAILY 7 Days #7 tab 09/29/20 ondansetron 4 mg disintegrating 4 mg PO Q8H PRN #20 tab 09/29/20 tablet sennosides 8.6 mg tablet (senna) 8.6 mg PO BEDTIME PRN #30 tab 09/29/20 lidocaine HCl 4 % topical cream 1 appl TOPICAL BID PRN 30 Days 01/09/21 (Aspercreme (lidocaine HCl)) #120 g tramadol 50 mg tablet 50 mg PO BEDTIME #5 tab 01/10/21 bisacodyl 5 mg tablet,delayed 10 mg PO ONCE 1 Days #2 tab 04/18/21 release (Dulcolax (bisacodyl)) polyethylene glycol 3350 17 238 g PO ONCE 1 Days #238 g 04/18/21 gram/dose oral powder (Miralax) acetaminophen 500 mg tablet 500 mg PO Q6H PRN #20 tab 09/07/21 (Tylenol Extra Strength) cyclobenzaprine 5 mg tablet 5 mg PO Q8H PRN 5 Days #14 tab 09/07/21 lidocaine 5 % topical patch 1 patch TOPICAL DAILY PRN #30 ea 09/07/21 (Lidoderm) MDD remove after 12 hours naproxen 500 mg tablet 500 mg PO BID PRN 10 Days #20 tab 09/07/21 acetaminophen 500 mg tablet 500 mg PO Q6H PRN #20 tab 10/01/21 (Tylenol Extra Strength) lidocaine 5 % topical patch 1 patch TOPICAL DAILY PRN #30 ea 10/01/21 (Lidoderm) MDD remove after 12 hours omeprazole 20 mg capsule,delayed 20 mg PO DAILY 90 Days #90 cap 10/19/21 release Allergies Allergy/AdvReac Type Severity Reaction Status Date / Time No Known Allergies Allergy Verified 09/07/21 16:26 Review of Systems Review of Systems: Constitutional: No Fever, No Chills, No Fatigue, No Malaise ENT/Mouth: No Ear Pain, No Nasal Congestion, No Sinus Pain, No Hoarseness, No sore throat, No Rhinorrhea, No Swallowing Difficulty Eyes: No Eye Pain, No Swelling, No Redness, No Vision Changes Cardiovascular: + Chest Pain, No SOB, No Orthopnea, No Edema, No Palpitations Respiratory: No Cough, No Sputum, No Dyspnea Gastrointestinal: No Nausea, No Vomiting, No Diarrhea, No Constipation, No Abdominal pain Genitourinary: No Dysuria, No Urinary Frequency, No Hematuria, No Urinary Incontinence, No Flank Pain Musculoskeletal: No joint pain, No Myalgias, No Joint Swelling Skin: No Skin Lesions, No rash Neuro: No Weakness, No Numbness, No Paresthesias, No Loss of Consciousness, No Dizziness, No Headache Yes all other systems are reviewed and are negative [facility] Past Medical History Attestation statement: The following information was validated with the patient. Medical History Alcohol abuse Appendicitis Cocaine abuse Diabetes Diabetes 1.5, managed as type 1 HTN (hypertension) Kidney disease Family History Family History Father No problems noted. Mother Diabetes Pancreas (digestive gland) works poorly Social History Social History Household Members: None Alcohol intake: current Alcohol intake frequency: holidays/special occasions only Patient Tobacco Use Status: Current everyday Tobacco user Cigarettes Per Day: 2 e-Cigarette/Vaping Use: Never Used Second Hand Smoke Exposure: No Advance Directives: Yes Advance Directives Information Provided: Yes Advance Directives on File: No service: No Current occupational status: disabled Physical Exam Vital Signs: Vital Signs: Last Vital Signs Temp 97.8 F 02/23/22 10:02 Pulse 60 02/23/22 11:43 Resp 15 02/23/22 11:43 BP 168/89 H 02/23/22 11:43 Pulse Ox 99 02/23/22 11:43 BMI result Body Mass Index 25.8 Const: General: cooperative, healthy appearing and no acute distress Orientation/consciousness: patient oriented x3 Limitations: no limitations HEENT: Head: Yes normal to inspection, Yes normocephalic and Yes atraumatic Ears: hearing grossly normal bilaterally General nose exam: Normal external nose present Face and sinus: Yes normal facial exam Eyes: General: appearance normal, both eyes and all related structures EOM: EOMs intact bilaterally Neck: Neck: Yes normal visual inspection and Yes no meningeal signs Chest: Chest palpation & inspection: no crepitus and no tenderness Resp: Effort & Inspection: normal respiratory effort and no respiratory distress Auscultation: clear to auscultation bilaterally, no rales, no rhonchi and no wheezes Cardio: Rate: regular rate Heart sounds: S1 normal heart sound present and S2 normal heart sound present GI: Inspection: Yes normal to inspection Palpation (GI): Soft to palpation, nontender, no guarding and not rigid : General: Yes no CVA tenderness Back/Spine/Pelvis: Back: no CVA tenderness Skin: Rashes: no rashes Wounds: no wounds Neuro: General: patient oriented x3 and no meningeal signs Gait exam (Neuro): Normal gait present Extrem: General: Yes normal to inspection, Yes no pedal edema and Yes no calf tenderness Course Course Course Narrative: -no leukocytosis. H&H at baseline. Chronic HONORIO. Initial troponin 8.5, repeat with decrease to 5.7 > [place] unlikely XR chest 1V IMPRESSION: No acute cardiopulmonary process. > results discussed with patient including worrisome signs and symptoms and strict return precautions and needed follow-up with PCP/Cardiology MDM - Chest Pain MDM Narrative Medical decision making narrative: 76-year-old male with a past medical history of ETOH abuse, appendicitis, cocaine abuse, diabetes, HTN, kidney disease, presenting to the ED complaining of intermittent CP since yesterday. On exam vital signs stable, NAD/nontoxic, chest pain not reproducible on exam, lungs CTA, no pedal edema. Symptoms atypical for ACS or PE. Unlikely pneumonia/viral syndrome Plan: EKG, labs, CXR Medical Records Data Attestation: I reviewed the patient's medical records. Lab Data Attestation: I reviewed the patient's lab results. Result diagrams: 02/23/22 09:49 02/23/22 09:49 Labs: Lab Results 02/23/22 02/23/22 02/23/22 Range/Units 09:49 09:49 09:49 WBC 5.6 (4.8-10.8) X10*3/uL RBC 4.27 L (4.60-5.80) X10*6/uL Hgb 13.2 L (14.0-18.0) g/dl Hct 40.0 L (42.0-52.0) % MCV 93.7 (80.0-98.0) fL MCH 30.9 (27.0-33.0) pg MCHC 33.0 (31.0-36.0) g/dl RDW 13.2 (11.0-16.0) % Plt Count 171 (160-400) X10*3/uL MPV 10.7 (9.4-12.4) fL Immature Gran % (Auto) 0.2 (0.0-0.4) % Neut % (Auto) 54.5 (45-73) % Lymph % (Auto) 31.9 (20-40) % [place] % (Auto) 9.3 (2-11) % Eos % (Auto) 3.7 (0-4) % Baso % (Auto) 0.4 (0-2) % Lymph # (Auto) 1.8 (1.2-4.9) X10*3/uL [place] # (Auto) 0.5 (0.1-1.2) X10*3/uL Eos # (Auto) 0.2 (0.0-0.4) X10*3/uL Baso # (Auto) 0.0 (0.0-0.2) X10*3/uL Abs Immat Gran (auto) 0.01 (0.00-0.03) X10*3/uL Absolute Neuts (auto) 3.1 (2.0-8.3) x10*3/uL Absolute Nucleated RBC 0.000 (0.0-0.012) X10*3/uL Nucleated RBC % (auto) 0.0 (0.0-0.2) /100WBC Sodium 141 (135-145) mmol/L Potassium 4.6 (3.3-5.1) mmol/L Chloride 106 (96-108) mmol/L Carbon Dioxide 29 (22-29) mmol/L Anion Gap 11 L (12-20) BUN 24 H (9-16) mg/dL Creatinine 1.53 H (0.5-1.4) mg/dL Estim Creat Clear Calc TNP Estimated GFR 45 Random Glucose 100 (60-115) mg/dL Calcium 9.4 (8.4-10.2) mg/dL Total Bilirubin 0.6 (0.0-1.0) mg/dL Direct Bilirubin 0.2 (0.0-0.5) mg/dL AST 30 (5-37) U/L ALT 32 (0-40) U/L Alkaline Phosphatase 63 (39-117) U/L Troponin I High Sens 8.5 (<3.5-35.0) ng/L B-Natriuretic Peptide 25 (<100) pg/mL Total Protein 7.0 (6.5-8.0) g/dL Albumin 4.3 (3.5-5.0) g/dL 02/23/22 02/23/22 Range/Units 09:49 13:11 WBC (4.8-10.8) X10*3/uL RBC (4.60-5.80) X10*6/uL Hgb (14.0-18.0) g/dl Hct (42.0-52.0) % MCV (80.0-98.0) fL MCH (27.0-33.0) pg MCHC (31.0-36.0) g/dl RDW (11.0-16.0) % Plt Count (160-400) X10*3/uL MPV (9.4-12.4) fL Immature Gran % (Auto) (0.0-0.4) % Neut % (Auto) (45-73) % Lymph % (Auto) (20-40) % [place] % (Auto) (2-11) % Eos % (Auto) (0-4) % Baso % (Auto) (0-2) % Lymph # (Auto) (1.2-4.9) X10*3/uL [place] # (Auto) (0.1-1.2) X10*3/uL Eos # (Auto) (0.0-0.4) X10*3/uL Baso # (Auto) (0.0-0.2) X10*3/uL Abs Immat Gran (auto) (0.00-0.03) X10*3/uL Absolute Neuts (auto) (2.0-8.3) x10*3/uL Absolute Nucleated RBC (0.0-0.012) X10*3/uL Nucleated RBC % (auto) (0.0-0.2) /100WBC Sodium (135-145) mmol/L Potassium (3.3-5.1) mmol/L Chloride (96-108) mmol/L Carbon Dioxide (22-29) mmol/L Anion Gap (12-20) BUN (9-16) mg/dL Creatinine (0.5-1.4) mg/dL Estim Creat Clear Calc Estimated GFR Random Glucose (60-115) mg/dL Calcium (8.4-10.2) mg/dL Total Bilirubin (0.0-1.0) mg/dL Direct Bilirubin (0.0-0.5) mg/dL AST (5-37) U/L ALT (0-40) U/L Alkaline Phosphatase (39-117) U/L Troponin I High Sens 5.7 (<3.5-35.0) ng/L B-Natriuretic Peptide Cancelled (<100) pg/mL Total Protein (6.5-8.0) g/dL Albumin (3.5-5.0) g/dL Discharge Plan Discharge Clinical Impression: Atypical chest pain Patient Disposition: Home, Self-Care Instructions: Chest Pain (ED) Additional Instructions: Your workup was unremarkable today, a chest x-ray was negative. It is important for you to follow-up with her primary care doctor as well as Cardiology as needed. If her symptoms persist or worsen, pain becomes more constant or you develop shortness of breath please return to the ED Prescriptions: No Action omeprazole 20 mg capsule,delayed release(DR/EC) 20 mg PO DAILY 90 Days Qty: 90 2RF tramadol 50 mg tablet 50 mg PO BEDTIME Qty: 5 0RF ondansetron 4 mg tablet,disintegrating 4 mg PO Q8H PRN (Reason: nausea and vomiting) Qty: 20 0RF levofloxacin 250 mg tablet 250 mg PO DAILY 7 Days Qty: 7 0RF sennosides [senna] 8.6 mg tablet 8.6 mg PO BEDTIME PRN (Reason: constipation) Qty: 30 0RF acetaminophen [Tylenol Extra Strength] 500 mg tablet 500 mg PO Q6H PRN (Reason: pain or fever) Qty: 20 0RF lidocaine [Lidoderm] 5 % adhesive patch,medicated 1 patch topical DAILY MDD remove after 12 hours PRN (Reason: pain) Qty: 30 0RF Rx Instructions: leave on most painful area for up to 12 hrs naproxen 500 mg tablet 500 mg PO BID PRN (Reason: pain) 10 Days Qty: 20 0RF cyclobenzaprine 5 mg tablet 5 mg PO Q8H PRN (Reason: pain (scale score 7-10)) 5 Days Qty: 14 0RF acetaminophen [Tylenol Extra Strength] 500 mg tablet 500 mg PO Q6H PRN (Reason: pain or fever) Qty: 20 0RF lidocaine [Lidoderm] 5 % adhesive patch,medicated 1 patch topical DAILY MDD remove after 12 hours PRN (Reason: pain) Qty: 30 0RF Rx Instructions: leave on most painful area for up to 12 hrs metformin 500 mg tablet extended release 24 hr 500 mg PO BID 0RF Cerovite Advanced Formula 18-400 mg-mcg tablet PO 0RF melatonin 5 mg tablet PO 0RF aspirin 81 mg tablet,delayed release (DR/EC) 81 mg PO BEDTIME 0RF atorvastatin 20 mg tablet 20 mg PO DAILY 0RF losartan 50 mg tablet 50 mg PO DAILY 0RF Fish Oil 340-1,000 mg capsule 1 cap PO BID 0RF gabapentin 100 mg capsule 200 mg PO BID 0RF nicotine 14 mg/24 hr patch 24 hour 0 patch topical 0RF naproxen 500 mg tablet 500 mg PO BID 0RF mirtazapine 30 mg tablet 30 mg PO BEDTIME 0RF chlorthalidone 25 mg tablet 25 mg PO DAILY 0RF lidocaine HCl [Aspercreme (lidocaine HCl)] 4 % cream 1 appl topical BID PRN (Reason: pain) 30 Days Qty: 120 3RF Fluad Quad 2020-21(65y up)(PF) 60 mcg (15 mcg x 4)/0.5 mL syringe IM 0RF polyethylene glycol 3350 [Miralax] 17 gram/dose powder 238 g PO ONCE 1 Days Qty: 238 0RF Rx Instructions: Take as directed by mouth the day before your procedure. bisacodyl [Dulcolax (bisacodyl)] 5 mg tablet,delayed release (DR/EC) 10 mg PO ONCE 1 Days Qty: 2 0RF Rx Instructions: Take 2 tablets by mouth at 12:00pm the day before your procedure. Referrals: Jovon Feng MD [Physician] - 5 days Physician,Unknown J [Primary Care Provider] -
[2022-02-23 14:50] VITALS: BP 165/80; PULSE 54; RESP 18; O2SAT 97
== END 2022-02-23 14:56 | disposition home or self-care (01) ==
PROVIDERS: Physician Assistant; Emergency Provider Emergency Medicine
DX: R07.89 Other chest pain (principal); F14.10 Cocaine abuse, uncomplicated; E11.9 Type 2 diabetes mellitus without complications; I10 Essential (primary) hypertension; R06.02 Shortness of breath; F17.210 Nicotine dependence, cigarettes, uncomplicated; Z71.6 Tobacco abuse counseling; Z79.899 Other long term (current) drug therapy
CPT/HCPCS: 36415; 71045; 80048; 80076; 83880; 84484; 85025; 93005; 99283

== ENCOUNTER → 2022-04-11 09:29 | Outpatient (BNVA) | payer MEDICARE, MEDICAID, SELFPAY | PROVIDERS: PCP Family Medicine; Referring Provider Family Medicine; Visit Provider Internal Medicine Cardiovascular Disease ==

== ENCOUNTER → 2022-04-11 09:29 | Outpatient (BNVA) | payer MEDICARE, MEDICAID, SELFPAY | PROVIDERS: PCP Family Medicine; Referring Provider Family Medicine; Visit Provider Internal Medicine Cardiovascular Disease | DX: Z13.89 Encounter for screening for other disorder (principal) ==

== ENCOUNTER 2022-05-01 09:19 | Emergency (ER) | payer MEDICARE, MEDICAID, SELFPAY ==
--- NOTE | ~2022-05-01 | XR_ITS ---
EXAMINATION: XR CHEST CLINICAL INFORMATION: Chest pain. COMPARISON: Multiple priors, most recent chest radiograph dated 02/23/2022. TECHNIQUE: 2 views of the chest were obtained. FINDINGS: The lungs are clear. The cardiomediastinal silhouette is normal in size. There is no pleural effusion or pneumothorax. No acute osseous abnormality. XR/XR chest 2V IMPRESSION: No acute cardiopulmonary findings.
[2022-05-01 09:24] VITALS: BP 154/53; PULSE 46; RESP 18; TEMP 37; O2SAT 100; BMI 22.3
--- NOTE | 2022-05-01 09:27 | ECG_ITS ---
Test Reason : CHEST PAIN Blood Pressure : / mmHG Vent. Rate : 089 BPM Atrial Rate : 089 BPM P-R Int : 120 ms QRS Dur : 078 ms QT Int : 372 ms P-R-T Axes : 022 -29 064 degrees QTc Int : 452 ms Sinus rhythm with frequent Premature ventricular complexes in a pattern of bigeminy Otherwise normal ECG When compared with ECG of 23-FEB-2022 09:37, QT has lengthened Referred By: Generic ED Physician Electronically Signed By:Lalit Yan
--- NOTE | 2022-05-01 09:41 | ED.CHESTPAIN ---
HPI - Chest Pain General Chief Complaint: Chest Pain Stated Complaint: Chest pain Time Seen by Provider: 05/01/22 09:41 Source: patient Mode of arrival: ambulatory Limitations: no limitations History of Present Illness HPI narrative: Patient is a 76 year old male presenting to the emergency department today with chest pain. Patient states that for the last 2 days, he has had intermittent chest pain. Patient states that he does not have any heart problems in his history. Patient states that he does occasionally use cocaine. Patient denies any pain at this time. Patient denies any dizziness, lightheadedness, abdominal pain, nausea, vomiting, fever, chills, blurry vision, double vision, loss of vision, difficulty breathing, shortness of breath, back pain, night sweats, pain with urination, increased urinary frequency, increased urinary urgency, blood in his urine or stool, syncope or a near syncopal episode, recent trauma or falls, bowel incontinence, bladder incontinence, bowel retention, bladder retention, or any other complaints at this time. MD complaint: chest pain Timing of current episode: episodic Onset: during rest Pain location: left chest Pain radiation: none Severity: mild Pain scale (0-10): 2 Quality: tightness Relieving factors: nothing Exacerbating factors: nothing Treatment prior to arrival: none Risk Factors Coronary artery disease risk factors: cocaine use Related Data Home Medications Medication Instructions Recorded Confirmed aspirin 81 mg tablet,delayed 81 mg PO BEDTIME 09/01/20 04/18/21 release atorvastatin 20 mg tablet 20 mg PO DAILY 09/01/20 04/18/21 chlorthalidone 25 mg tablet 25 mg PO DAILY 09/01/20 04/18/21 gabapentin 100 mg capsule 200 mg PO BID 09/01/20 04/18/21 losartan 50 mg tablet 50 mg PO DAILY 09/01/20 04/18/21 melatonin 5 mg tablet mg PO 09/01/20 04/18/21 metformin 500 mg tablet,extended 500 mg PO BID 09/01/20 04/18/21 release 24 hr mirtazapine 30 mg tablet 30 mg PO BEDTIME 09/01/20 04/18/21 multivitamin-ferrous tab PO 09/01/20 04/18/21 fumarate-folic acid 18 mg-400 mcg tablet naproxen 500 mg tablet 500 mg PO BID 09/01/20 04/18/21 nicotine 14 mg/24 hr daily 0 patch topical 09/01/20 04/18/21 transdermal patch omega-3 fatty acids-fish oil 340 1 cap PO BID 09/01/20 04/18/21 mg-1,000 mg capsule flu vacc 2020(65yr ml IM 12/19/20 04/18/21 up)-MF59C(PF) 60 mcg(15 mcgx4)/0.5 mL IM syringe Previous Rx's Medication Instructions Recorded levofloxacin 250 mg tablet 250 mg PO DAILY 7 days #7 tabs 09/29/20 ondansetron 4 mg disintegrating 4 mg PO Q8H PRN nausea and 09/29/20 tablet vomiting #20 tabs sennosides 8.6 mg tablet (senna) 8.6 mg PO BEDTIME PRN constipation 09/29/20 #30 tabs lidocaine HCl 4 % topical cream 1 appl topical BID PRN pain 30 01/09/21 (Aspercreme (lidocaine HCl)) days #120 grams tramadol 50 mg tablet 50 mg PO BEDTIME #5 tabs 01/10/21 bisacodyl 5 mg tablet,delayed 10 mg PO ONCE colonoscopy prep 1 04/18/21 release (Dulcolax (bisacodyl)) day #2 tabs polyethylene glycol 3350 17 238 g PO ONCE 1 day #238 grams 04/18/21 gram/dose oral powder (Miralax) acetaminophen 500 mg tablet 500 mg PO Q6H PRN pain or fever 09/07/21 (Tylenol Extra Strength) #20 tabs cyclobenzaprine 5 mg tablet 5 mg PO Q8H PRN pain (scale score 09/07/21 7-10) 5 days #14 tabs lidocaine 5 % topical patch 1 patch topical DAILY PRN pain #30 09/07/21 (Lidoderm) ea naproxen 500 mg tablet 500 mg PO BID PRN pain 10 days #20 09/07/21 tabs acetaminophen 500 mg tablet 500 mg PO Q6H PRN pain or fever 10/01/21 (Tylenol Extra Strength) #20 tabs lidocaine 5 % topical patch 1 patch topical DAILY PRN pain #30 10/01/21 (Lidoderm) ea omeprazole 20 mg capsule,delayed 20 mg PO DAILY 90 days #90 caps 10/19/21 release Allergies Allergy/AdvReac Type Severity Reaction Status Date / Time No Known Allergies Allergy Verified 09/07/21 16:26 Review of Systems Constitutional: Constitutional: Reports no additional constitutional complaints, Denies chills, Denies fever(s) and Denies night sweats Eyes: Eyes: Reports no additional eye complaints, Denies blurry vision, Denies change in vision, Denies diplopia, Denies eye discharge, Denies loss of vision and Denies eye pain ENT: Denies dizziness Cardiovascular: Cardiovascular: Reports no additional cardiovascular complaints, Denies chest pain, Denies lightheadedness, Denies Loss of Consciousness and Denies dyspnea Respiratory: Respiratory: Reports no additional respiratory complaints and Denies dyspnea Gastrointestinal: Gastrointestinal: Reports no additional gastrointestinal complaints, Denies abdominal pain, Denies melena, Denies hematochezia, Denies change in bowel habits and Denies change in stool character Genitourinary: Genitourinary: Reports no additional male genitourinary complaints, Denies hematuria, Denies oliguria, Denies difficulty urinating, Denies dysuria, Denies urinary frequency, Denies urinary hesitancy, Denies urinary incontinence and Denies urinary urgency Musculoskeletal: Musculoskeletal: Reports no additional musculoskeletal complaints, Denies numbness and Denies tingling Neurologic: Denies dizziness, Denies loss of vision, Denies numbness and Denies tingling Psychiatric: Psychiatric: Reports no additional psychiatric complaints Endocrine: Endocrine: Reports no additional endocrine complaints Hematologic/Lymphatic: Hematologic/Lymphatic: Reports no additional hematologic/lymphatic complaints Allergic/Immunologic: Allergic/Immunologic: Reports no additional allergic/immunologic complaints [facility] Past Medical History Attestation statement: The following information was validated with the patient. Source: old records reviewed Medical History Alcohol abuse Appendicitis Cocaine abuse Diabetes HTN (hypertension) Kidney disease Family History Family History Father No problems noted. Mother Diabetes Pancreas (digestive gland) works poorly Social History Social History Household Members: None Alcohol intake: current Alcohol intake frequency: 0-2 drinks per day Patient Tobacco Use Status: Current someday Tobacco user Cigarettes Per Day: 2 Smoked in Last 30 Days: Yes e-Cigarette/Vaping Use: Never Used Second Hand Smoke Exposure: No Use of substances other than those prescribed or required for medical reasons: No Advance Directives: No Advance Directives Information Provided: Yes service: No Current occupational status: disabled Physical Exam Vital Signs: Vital Signs: Last Vital Signs Temp 98.6 F 05/01/22 09:24 Pulse 95 05/01/22 10:04 Resp 18 05/01/22 10:04 BP 157/57 H 05/01/22 10:04 Pulse Ox 100 05/01/22 09:24 O2 Del Method 05/01/22 09:24 BMI result Body Mass Index 22.3 Const: General: cooperative, no acute distress, alert and awake Nutritional Appearance: well nourished Orientation/consciousness: patient oriented x3 Limitations: no limitations HEENT: Head: Yes normal to inspection and Yes atraumatic Ears: hearing grossly normal bilaterally and external ears normal General nose exam: Normal external nose present, no nasal discharge noted and no epistaxis Face and sinus: Yes normal facial exam, No abrasion and No laceration Mouth: Normal oral and palatal mucosa present, no drooling and no muffled voice Eyes: General: appearance normal, both eyes and all related structures Periorbital: periorbital findings normal Eyelids: Yes eyelids normal Conjunctivae: conjunctivae normal Pupils: Equal, round and reactive pupils present EOM: EOMs intact bilaterally Neck: Neck: Yes normal visual inspection, Yes full ROM and Yes no lymphadenopathy Chest: Chest palpation & inspection: normal inspection of the chest Resp: Effort & Inspection: normal respiratory effort and able to speak in complete sentences Auscultation: clear to auscultation bilaterally Cardio: Rate: regular rate Rhythm: regular rhythm GI: Inspection: Yes normal to inspection Neuro: General: patient oriented x3 and moves all extremities Cranial nerves: Yes Equal, round and reactive pupils present Cognition (Neuro): normal cognition Motor exam (neuro): 5/5 motor strength present throughout Sensory Exam: Normal double simultaneous stimulation for sensation Coordination: [id number] test normal Extrem: General: Yes normal to inspection, Yes full ROM and Yes capillary refill normal Psych: Appearance: grossly normal Mental Status: mental status grossly normal Affect: normal affect Attitude: cooperative Thought process: Normal thought process present Thought content: Normal thought content present Insight: Good insight present (Psych) MDM - Chest Pain MDM Narrative Medical decision making narrative: Patient is a 76 year old male presenting to the emergency department today with chest pain. Patient's physical exam was unremarkable. Patient's blood work showed a hyponatremia and elevated creatinine however, the patient has a history of kidney disease and elevated creatinine is normal for their baseline. Patient's EKG showed PVCs but was otherwise unremarkable. Patient's chest x-ray showed no acute process. I explained my physical exam findings as well as all test results to the patient. I answered all questions asked by the patient. I stressed the importance of the patient taking his medication as prescribed. I stressed the importance of the patient following up with his primary care provider and a school social worker. I stressed the importance of the patient returning to the emergency department immediately if his symptoms were to worsen or if he were to develop any dizziness, shortness of breath, difficulty breathing, chest pain, blurry vision, loss of vision, nausea, vomiting, abdominal pain, fever, chills, back pain, or any other complaints. Patient verbalized agreement and understanding with this treatment plan and discharge. Differential Diagnosis Differential diagnosis: Likely unstable angina pectoris and atypical chest pain Medical Records Data Attestation: I reviewed the patient's medical records. Lab Data Attestation: I reviewed the patient's lab results. Result diagrams: 05/01/22 09:38 05/01/22 09:38 Labs: Lab Results 05/01/22 05/01/22 05/01/22 Range/Units 09:38 09:38 09:38 WBC 6.2 (4.8-10.8) X10*3/uL RBC 3.87 L (4.60-5.80) X10*6/uL Hgb 12.3 L (14.0-18.0) g/dl Hct 36.1 L (42.0-52.0) % MCV 93.3 (80.0-98.0) fL MCH 31.8 (27.0-33.0) pg MCHC 34.1 (31.0-36.0) g/dl RDW 13.6 (11.0-16.0) % Plt Count 177 (160-400) X10*3/uL MPV 10.3 (9.4-12.4) fL Immature Gran % (Auto) 0.3 (0.0-0.4) % Neut % (Auto) 63.7 (45-73) % Lymph % (Auto) 23.6 (20-40) % [place] % (Auto) 10.0 (2-11) % Eos % (Auto) 2.1 (0-4) % Baso % (Auto) 0.3 (0-2) % Lymph # (Auto) 1.5 (1.2-4.9) X10*3/uL [place] # (Auto) 0.6 (0.1-1.2) X10*3/uL Eos # (Auto) 0.1 (0.0-0.4) X10*3/uL Baso # (Auto) 0.0 (0.0-0.2) X10*3/uL Abs Immat Gran (auto) 0.02 (0.00-0.03) X10*3/uL Absolute Neuts (auto) 4.0 (2.0-8.3) x10*3/uL Absolute Nucleated RBC 0.020 H (0.0-0.012) X10*3/uL Nucleated RBC % (auto) 0.3 H (0.0-0.2) /100WBC PT INR APTT D-Dimer High Sensitivty NG/ML Sodium 132 L (135-145) mmol/L Potassium 3.9 (3.3-5.1) mmol/L Chloride 99 (96-108) mmol/L Carbon Dioxide 21 L (22-29) mmol/L Anion Gap 16 (12-20) BUN 19 H (9-16) mg/dL Creatinine 1.61 H (0.5-1.4) mg/dL Estim Creat Clear Calc 41.3 Estimated GFR 42 Random Glucose 225 H D (60-115) mg/dL Calcium 8.4 D (8.4-10.2) mg/dL Magnesium 1.8 (1.6-2.6) mg/dL Total Bilirubin 0.8 (0.0-1.0) mg/dL AST 59 H (5-37) U/L ALT 45 H (0-40) U/L Alkaline Phosphatase 68 (39-117) U/L Troponin I High Sens 4.5 (<3.5-35.0) ng/L B-Natriuretic Peptide (<100) pg/mL Total Protein 6.6 (6.5-8.0) g/dL Albumin 4.1 (3.5-5.0) g/dL 05/01/22 05/01/22 05/01/22 Range/Units 10:03 10:03 12:32 WBC (4.8-10.8) X10*3/uL RBC (4.60-5.80) X10*6/uL Hgb (14.0-18.0) g/dl Hct (42.0-52.0) % MCV (80.0-98.0) fL MCH (27.0-33.0) pg MCHC (31.0-36.0) g/dl RDW (11.0-16.0) % Plt Count (160-400) X10*3/uL MPV (9.4-12.4) fL Immature Gran % (Auto) (0.0-0.4) % Neut % (Auto) (45-73) % Lymph % (Auto) (20-40) % [place] % (Auto) (2-11) % Eos % (Auto) (0-4) % Baso % (Auto) (0-2) % Lymph # (Auto) (1.2-4.9) X10*3/uL [place] # (Auto) (0.1-1.2) X10*3/uL Eos # (Auto) (0.0-0.4) X10*3/uL Baso # (Auto) (0.0-0.2) X10*3/uL Abs Immat Gran (auto) (0.00-0.03) X10*3/uL Absolute Neuts (auto) (2.0-8.3) x10*3/uL Absolute Nucleated RBC (0.0-0.012) X10*3/uL Nucleated RBC % (auto) (0.0-0.2) /100WBC PT Cancelled 11.5 INR Cancelled 1.0 APTT Cancelled 27.5 D-Dimer High Sensitivty < 150 NG/ML Sodium (135-145) mmol/L Potassium (3.3-5.1) mmol/L Chloride (96-108) mmol/L Carbon Dioxide (22-29) mmol/L Anion Gap (12-20) BUN (9-16) mg/dL Creatinine (0.5-1.4) mg/dL Estim Creat Clear Calc Estimated GFR Random Glucose (60-115) mg/dL Calcium (8.4-10.2) mg/dL Magnesium (1.6-2.6) mg/dL Total Bilirubin (0.0-1.0) mg/dL AST (5-37) U/L ALT (0-40) U/L Alkaline Phosphatase (39-117) U/L Troponin I High Sens (<3.5-35.0) ng/L B-Natriuretic Peptide 15 (<100) pg/mL Total Protein (6.5-8.0) g/dL Albumin (3.5-5.0) g/dL 05/01/22 Range/Units 12:32 WBC (4.8-10.8) X10*3/uL RBC (4.60-5.80) X10*6/uL Hgb (14.0-18.0) g/dl Hct (42.0-52.0) % MCV (80.0-98.0) fL MCH (27.0-33.0) pg MCHC (31.0-36.0) g/dl RDW (11.0-16.0) % Plt Count (160-400) X10*3/uL MPV (9.4-12.4) fL Immature Gran % (Auto) (0.0-0.4) % Neut % (Auto) (45-73) % Lymph % (Auto) (20-40) % [place] % (Auto) (2-11) % Eos % (Auto) (0-4) % Baso % (Auto) (0-2) % Lymph # (Auto) (1.2-4.9) X10*3/uL [place] # (Auto) (0.1-1.2) X10*3/uL Eos # (Auto) (0.0-0.4) X10*3/uL Baso # (Auto) (0.0-0.2) X10*3/uL Abs Immat Gran (auto) (0.00-0.03) X10*3/uL Absolute Neuts (auto) (2.0-8.3) x10*3/uL Absolute Nucleated RBC (0.0-0.012) X10*3/uL Nucleated RBC % (auto) (0.0-0.2) /100WBC PT INR APTT D-Dimer High Sensitivty NG/ML Sodium (135-145) mmol/L Potassium (3.3-5.1) mmol/L Chloride (96-108) mmol/L Carbon Dioxide (22-29) mmol/L Anion Gap (12-20) BUN (9-16) mg/dL Creatinine (0.5-1.4) mg/dL Estim Creat Clear Calc Estimated GFR Random Glucose (60-115) mg/dL Calcium (8.4-10.2) mg/dL Magnesium (1.6-2.6) mg/dL Total Bilirubin (0.0-1.0) mg/dL AST (5-37) U/L ALT (0-40) U/L Alkaline Phosphatase (39-117) U/L Troponin I High Sens 5.8 (<3.5-35.0) ng/L B-Natriuretic Peptide (<100) pg/mL Total Protein (6.5-8.0) g/dL Albumin (3.5-5.0) g/dL Imaging Data Chest x-ray: Attestation: I personally reviewed and interpreted this imaging study as follows: My impression: No acute process. Radiologist's impression: EXAMINATION: XR CHEST CLINICAL INFORMATION: Chest pain. COMPARISON: Multiple priors, most recent chest radiograph dated 02/23/2022. TECHNIQUE: 2 views of the chest were obtained. FINDINGS: The lungs are clear. The cardiomediastinal silhouette is normal in size. There is no pleural effusion or pneumothorax. No acute osseous abnormality. XR/XR chest 2V IMPRESSION: No acute cardiopulmonary findings. Dictated By: Jarek Jeffery MD Signed By: Electronically signed by Jarek Jeffery MD 05/01/22 1126 ECG Data ECG #1: Attestation: I personally reviewed and interpreted this ECG as follows: ECG interpretation date: 05/01/22 ECG interpretation time: : Prior ECG tracings: available for review Interpretation: Vent. Rate: 089 BPM ? ? Atrial Rate: 089 BPM P-R Int: 120 ms? QRS Dur: 078 ms QT Int: 372 ms ? ? ? P-R-T Axes: 022 -29 064 degrees QTc Int: 452 ms ? Sinus rhythm with frequent Premature ventricular complexes in a pattern of bigeminy Otherwise normal ECG When compared with ECG of 23-FEB-2022 09:37, QT has lengthened DD/ 1 ECG #2: Attestation: I personally reviewed and interpreted this ECG as follows: ECG interpretation date: 05/01/22 ECG interpretation time: 09:59 Prior ECG tracings: available for review Interpretation: Vent. Rate: 093 BPM ? ? Atrial Rate: 093 BPM P-R Int: 128 ms? QRS Dur: 074 ms QT Int: 338 ms ? ? ? P-R-T Axes: 028 -35 057 degrees QTc Int: 420 ms ? Sinus rhythm with occasional Premature ventricular complexes Left axis deviation Nonspecific ST and T wave abnormality Abnormal ECG When compared with ECG of 01-MAY-2022 09:22, Nonspecific T wave abnormality, worse in Lateral leads DD/ 8 Discharge Plan Discharge Clinical Impression: Chest pain Patient Disposition: Home, Self-Care Instructions: Chest Pain (DC) Additional Instructions: Follow up with your primary care provider and a school social worker. Return to the emergency department immediately if your symptoms worsen or if you develop any dizziness, shortness of breath, difficulty breathing, chest pain, blurry vision, loss of vision, nausea, vomiting, abdominal pain, fever, chills, back pain, or any other complaints. Prescriptions: No Action omeprazole 20 mg capsule,delayed release(DR/EC) 20 mg PO DAILY 90 Days Qty: 90 2RF tramadol 50 mg tablet 50 mg PO BEDTIME Qty: 5 0RF ondansetron 4 mg tablet,disintegrating 4 mg PO Q8H PRN (Reason: nausea and vomiting) Qty: 20 0RF levofloxacin 250 mg tablet 250 mg PO DAILY 7 Days Qty: 7 0RF sennosides [senna] 8.6 mg tablet 8.6 mg PO BEDTIME PRN (Reason: constipation) Qty: 30 0RF acetaminophen [Tylenol Extra Strength] 500 mg tablet 500 mg PO Q6H PRN (Reason: pain or fever) Qty: 20 0RF lidocaine [Lidoderm] 5 % adhesive patch,medicated 1 patch topical DAILY MDD remove after 12 hours PRN (Reason: pain) Qty: 30 0RF Rx Instructions: leave on most painful area for up to 12 hrs naproxen 500 mg tablet 500 mg PO BID PRN (Reason: pain) 10 Days Qty: 20 0RF cyclobenzaprine 5 mg tablet 5 mg PO Q8H PRN (Reason: pain (scale score 7-10)) 5 Days Qty: 14 0RF acetaminophen [Tylenol Extra Strength] 500 mg tablet 500 mg PO Q6H PRN (Reason: pain or fever) Qty: 20 0RF lidocaine [Lidoderm] 5 % adhesive patch,medicated 1 patch topical DAILY MDD remove after 12 hours PRN (Reason: pain) Qty: 30 0RF Rx Instructions: leave on most painful area for up to 12 hrs metformin 500 mg tablet extended release 24 hr 500 mg PO BID Cerovite Advanced Formula 18-400 mg-mcg tablet PO melatonin 5 mg tablet PO aspirin 81 mg tablet,delayed release (DR/EC) 81 mg PO BEDTIME atorvastatin 20 mg tablet 20 mg PO DAILY losartan 50 mg tablet 50 mg PO DAILY Fish Oil 340-1,000 mg capsule 1 cap PO BID gabapentin 100 mg capsule 200 mg PO BID nicotine 14 mg/24 hr patch 24 hour 0 patch topical naproxen 500 mg tablet 500 mg PO BID mirtazapine 30 mg tablet 30 mg PO BEDTIME chlorthalidone 25 mg tablet 25 mg PO DAILY lidocaine HCl [Aspercreme (lidocaine HCl)] 4 % cream 1 appl topical BID PRN (Reason: pain) 30 Days Qty: 120 3RF Fluad Quad 2019-21(65y up)(PF) 60 mcg (15 mcg x 4)/0.5 mL syringe IM polyethylene glycol 3350 [Miralax] 17 gram/dose powder 238 g PO ONCE 1 Days Qty: 238 0RF Rx Instructions: Take as directed by mouth the day before your procedure. bisacodyl [Dulcolax (bisacodyl)] 5 mg tablet,delayed release (DR/EC) 10 mg PO ONCE 1 Days Qty: 2 0RF Rx Instructions: Take 2 tablets by mouth at 12:00pm the day before your procedure. Referrals: [facility] [place] [facility] [place] Group] Luis Dickerson MD [Primary Care Provider] - Interventions: ED Discharge Assessment Last Done: 05/01/22 13:31 Discharge Date/Time: 05/01/22 13:32 Print Language: Indonesian
[2022-05-01 09:43] LABS: MANUAL DIFF FLAG NO
[2022-05-01 09:47] LABS: Basophils Percent Auto 0.3 % (0-2); Eosinophils Absolute Auto 0.1 X10*3/uL (0.0-0.4); Eosinophils Percent Auto 2.1 % (0-4); Hematocrit 36.1 % (42.0-52.0); Hemoglobin 12.3 g/dl (14.0-18.0); Imm Gran Abs Auto 0.02 X10*3/uL (0.00-0.03); Imm Gran Pct Auto 0.3 % (0.0-0.4); Lymphocytes Absolute Auto 1.5 X10*3/uL (1.2-4.9); Lymphocytes Percent Auto 23.6 % (20-40); Mean Corpuscular HGB Conc 34.1 g/dl (31.0-36.0); Mean Corpuscular Hemoglobin 31.8 pg (27.0-33.0); Mean Corpuscular Volume 93.3 fL (80.0-98.0); Mean Platelet Volume 10.3 fL (9.4-12.4); Monocytes Absolute Auto 0.6 X10*3/uL (0.1-1.2); NRBC Pct Auto 0.3 /100WBC (0.0-0.2); Neutrophils Percent Auto 63.7 % (45-73); Platelet Count 177 X10*3/uL (160-400); Red Blood Count 3.87 X10*6/uL (4.60-5.80); Red Cell Distribution Width 13.6 % (11.0-16.0); White Blood Count 6.2 X10*3/uL (4.8-10.8)
[2022-05-01 09:57] VITALS: BP 157/57; PULSE 92
[2022-05-01] MEDS: Nitroglycerin 0.4 MG TAB.SUBL SUBLINGUAL (09:57)
[2022-05-01] MEDS: Aspirin 81 MG TAB.CHEW 324 MG PO (09:57)
[2022-05-01 10:01] LABS: Alanine Aminotransferase 45 U/L (0-40); Albumin Level 4.1 g/dL (3.5-5.0); Alkaline Phosphatase 68 U/L (39-117); Anion Gap 16 (12-20); Aspartate Amino Transferase 59 U/L (5-37); Bilirubin Total 0.8 mg/dL (0.0-1.0); Blood Urea Nitrogen 19 mg/dL (9-16); Calcium 8.4 mg/dL (8.4-10.2); Carbon Dioxide 21 mmol/L (22-29); Chloride 99 mmol/L (96-108); Creatinine Clr Calc Pharmacy 41.3; Estimated Glomerular Filt Rate 42; Glucose Random 225 mg/dL (60-115); Magnesium 1.8 mg/dL (1.6-2.6); Potassium 3.9 mmol/L (3.3-5.1); Sodium 132 mmol/L (135-145); Total Protein 6.6 g/dL (6.5-8.0)
[2022-05-01 10:04] VITALS: BP 157/57; PULSE 95; RESP 18
[2022-05-01 10:07] LABS: Troponin-I High Sensitivity 4.5 ng/L (<3.5-35.0)
--- NOTE | 2022-05-01 10:12 | ECG_ITS ---
Test Reason : repeat Blood Pressure : / mmHG Vent. Rate : 093 BPM Atrial Rate : 093 BPM P-R Int : 128 ms QRS Dur : 074 ms QT Int : 338 ms P-R-T Axes : 028 -35 057 degrees QTc Int : 420 ms Sinus rhythm with occasional Premature ventricular complexes Left axis deviation Nonspecific ST and T wave abnormality Abnormal ECG When compared with ECG of 01-MAY-2022 09:22, Nonspecific T wave abnormality, worse in Lateral leads Referred By: Xochitl Lyons Electronically Signed By:Lalit Yan
[2022-05-01 10:20] LABS: Prothrombin Time 11.5 SEC (9.9-13.0)
[2022-05-01 10:22] LABS: Partial Thromboplastin Time 27.5 SEC (24.1-38.0)
[2022-05-01 10:25] LABS: D Dimer High Sensitivity < 150 NG/ML
[2022-05-01 13:00] LABS: Troponin-I High Sensitivity 5.8 ng/L (<3.5-35.0)
[2022-05-01 13:01] LABS: B Type Natriuretic Peptide 15 pg/mL (<100)
== END 2022-05-01 13:32 | disposition home or self-care (01) ==
PROVIDERS: Physician Assistant Medical; Emergency Provider Emergency Medicine; PCP Family Medicine
DX: R07.9 Chest pain, unspecified (principal); I10 Essential (primary) hypertension; E13.9 Other specified diabetes mellitus without complications; F17.200 Nicotine dependence, unspecified, uncomplicated
CPT/HCPCS: 36415; 71046; 80053; 83735; 83880; 84484; 85025; 85379; 85610; 85730; 93005; 99283; 99284

== ENCOUNTER 2022-05-08 10:09 | Emergency (ER) | payer MEDICARE, MEDICAID, SELFPAY ==
[2022-05-08 10:14] VITALS: BP 133/79; PULSE 60; RESP 18; TEMP 36.6; O2SAT 99; BMI 21.7
--- NOTE | 2022-05-08 11:03 | PC.NURSE ---
PROVIDER WENT IN TO SEE PATIENT, PATIENT NO WHERE TO BE FOUND.
== END 2022-05-08 11:14 | disposition left against medical advice (07) ==
LOC: HO.ED 11:08
PROVIDERS: Emergency Provider Emergency Medicine; PCP Family Medicine
DX: M79.602 Pain in left arm (principal); R51.9 Headache, unspecified
CPT/HCPCS: 99281

== ENCOUNTER 2022-09-17 11:22 | Outpatient (REF) | payer MEDICARE, MEDICAID, SELFPAY ==
--- NOTE | ~2022-09-17 | XR_ITS ---
EXAMINATION: XR HIP, RIGHT CLINICAL INFORMATION: Trauma, pain COMPARISON: CT abdomen and pelvis 09/29/2020. TECHNIQUE: AP view pelvis and 2 views right hip are obtained for a total of 3 views. FINDINGS: There is no right hip or pelvic fracture or dislocation. Normal bony mineralization. The SI joints and pubis show no diastases. There is mild bilateral superior medial hip joint narrowing. Mild spurring right hip greater trochanter. Bowel gas unremarkable. XR/XR hip RT w PEL1V IMPRESSION: 1. No fracture or dislocation 2. Mild bilateral superior medial hip joint narrowing.
--- NOTE | ~2022-09-17 | XR_ITS ---
EXAMINATION: XR KNEE, RIGHT CLINICAL INFORMATION: Trauma, pain COMPARISON: Radiographs right knee 05/09/2015 TECHNIQUE: Four views of the right knee. FINDINGS: No fracture, dislocation, or suprapatellar effusion. Hoffa's fat pad appears normal. Normal bony mineralization. There is prominent proximal anterior tibial tubercle similar to prior exam 2014. No interval joint narrowing or erosive change. XR/XR knee RT 4V IMPRESSION: No fracture, dislocation, or effusion.
== END 2022-09-17 11:23 | disposition home or self-care (01) ==
LOC: HO.XRAY 11:22
PROVIDERS: PCP Registered Nurse; Visit Provider Emergency Medicine
DX: S79.911A Unspecified injury of right hip, initial encounter (principal); S89.91XA Unspecified injury of right lower leg, initial encounter; X58.XXXA Exposure to other specified factors, initial encounter; Y93.9 Activity, unspecified; Y92.9 Unspecified place or not applicable; Y99.9 Unspecified external cause status
CPT/HCPCS: 73502; 73564

== ENCOUNTER 2022-10-28 22:08 | Emergency (ER) | payer MEDICARE, MEDICAID, SELFPAY ==
[2022-10-28 22:27] VITALS: BP 150/70; BP 154/82; PULSE 71; PULSE 77; RESP 16; TEMP 36.8; O2SAT 98; BMI 22.3
--- NOTE | 2022-10-28 22:35 | ED.GENADULT ---
HPI - General Adult General Chief complaint: Altered Mental Status Stated complaint: Hypoglycemic/ams Time Seen by Provider: 10/28/22 22:24 Source: patient and EMS Mode of arrival: EMS Limitations: no limitations History of Present Illness HPI narrative: Patient comes emergency room via EMS. A bystander called 911 because they saw [place]. Patient's blood sugar was checked, it was initially 24, patient given oral glucose, improved to 47. On arrival to the emergency room, patient alert and oriented x4, no acute distress, blood sugar in the 160s. Patient states that to his knowledge he only takes metformin for diabetes, but he has not been taking it for several days. Patient states that he eats irregularly but he has been eating every day. At this time, patient has no complaints. Patient states that in the past he has had hypoglycemia and been confused, but never to this extent. Patient states that he believes that he was trying to get to his daughter's house who lives in [place] Related Data Home Medications Medication Instructions Recorded Confirmed aspirin 81 mg tablet,delayed 81 mg PO BEDTIME 09/01/20 04/18/21 release atorvastatin 20 mg tablet 20 mg PO DAILY 09/01/20 04/18/21 chlorthalidone 25 mg tablet 25 mg PO DAILY 09/01/20 04/18/21 gabapentin 100 mg capsule 200 mg PO BID 09/01/20 04/18/21 losartan 50 mg tablet 50 mg PO DAILY 09/01/20 04/18/21 melatonin 5 mg tablet mg PO 09/01/20 04/18/21 metformin 500 mg tablet,extended 500 mg PO BID 09/01/20 04/18/21 release 24 hr mirtazapine 30 mg tablet 30 mg PO BEDTIME 09/01/20 04/18/21 multivitamin-ferrous tab PO 09/01/20 04/18/21 fumarate-folic acid 18 mg-400 mcg tablet naproxen 500 mg tablet 500 mg PO BID 09/01/20 04/18/21 nicotine 14 mg/24 hr daily 0 patch topical 09/01/20 04/18/21 transdermal patch omega-3 fatty acids-fish oil 340 1 cap PO BID 09/01/20 04/18/21 mg-1,000 mg capsule flu vacc 2020-(65yr ml IM 12/19/20 04/18/21 up)-MF59C(PF) 60 mcg(15 mcgx4)/0.5 mL IM syringe Previous Rx's Medication Instructions Recorded levofloxacin 250 mg tablet 250 mg PO DAILY 7 days #7 tabs 09/29/20 ondansetron 4 mg disintegrating 4 mg PO Q8H PRN nausea and 09/29/20 tablet vomiting #20 tabs sennosides 8.6 mg tablet (senna) 8.6 mg PO BEDTIME PRN constipation 09/29/20 #30 tabs lidocaine HCl 4 % topical cream 1 appl topical BID PRN pain 30 01/09/21 (Aspercreme (lidocaine HCl)) days #120 grams tramadol 50 mg tablet 50 mg PO BEDTIME #5 tabs 01/10/21 bisacodyl 5 mg tablet,delayed 10 mg PO ONCE colonoscopy prep 1 04/18/21 release (Dulcolax (bisacodyl)) day #2 tabs polyethylene glycol 3350 17 238 g PO ONCE 1 day #238 grams 04/18/21 gram/dose oral powder (Miralax) acetaminophen 500 mg tablet 500 mg PO Q6H PRN pain or fever 09/07/21 (Tylenol Extra Strength) #20 tabs cyclobenzaprine 5 mg tablet 5 mg PO Q8H PRN pain (scale score 09/07/21 7-10) 5 days #14 tabs lidocaine 5 % topical patch 1 patch topical DAILY PRN pain #30 09/07/21 (Lidoderm) ea naproxen 500 mg tablet 500 mg PO BID PRN pain 10 days #20 09/07/21 tabs acetaminophen 500 mg tablet 500 mg PO Q6H PRN pain or fever 10/01/21 (Tylenol Extra Strength) #20 tabs lidocaine 5 % topical patch 1 patch topical DAILY PRN pain #30 10/01/21 (Lidoderm) ea omeprazole 20 mg capsule,delayed 20 mg PO DAILY 90 days #90 caps 10/19/21 release glucagon 1 mg solution for 1 mg subcut Q20M PRN hypoglycemia 10/29/22 injection (Glucagon Emergency Kit) #1 ea Allergies Allergy/AdvReac Type Severity Reaction Status Date / Time No Known Allergies Allergy Verified 10/28/22 22:26 Review of Systems Review of Systems: Constitutional : No Weight loss, No Fever, No Chills, No Night Sweats, No Fatigue, No Malaise ENT/Mouth : No Hearing loss, No Ear Pain, No Nasal Congestion, No Sinus Pain, No Hoarseness, No sore throat, No Rhinorrhea, No Swallowing Difficulty Eyes: No Eye Pain, No Swelling, No Redness, No Foreign Body, No Discharge, No Vision Changes Cardiovascular : No Chest Pain, No SOB, No Dyspnea on Exertion, No Orthopnea, No Edema, No Palpitations Respiratory : No Cough, No Sputum, No Wheezing, No Smoke Exposure, No Dyspnea Gastrointestinal : No Nausea, No Vomiting, No Diarrhea, No Constipation, No abdominal Pain, No Hematochezia, No Melena Genitourinary : no irregular bleeding, No Dysuria, No Urinary Frequency, No Hematuria, No Urinary Incontinence, No Urgency, No Flank Pain, No Urinary Flow Changes, No Hesitancy Musculoskeletal : No joint pain, No Myalgias, No Joint Swelling Skin : No Skin Lesions, No rash Neuro : No Weakness, No Numbness, No Paresthesias, No Loss of Consciousness, No Dizziness, No Headache Psych : No Anxiety/Panic, No Depression, No SI/HI/AH/VH, No Social Issues, Heme/Lymph: No Bruising, No Bleeding,No Lymphadenopathy Endocrine : No Polyuria, No Polydipsia, low blood sugar, confusion PMFSH Past Medical History Medical History Alcohol abuse Appendicitis Cocaine abuse Diabetes Diabetes 1.5, managed as type 1 HTN (hypertension) Kidney disease Family History Family History Father No problems noted. Mother Diabetes Pancreas (digestive gland) works poorly Social History Social History Household Members: None Alcohol intake: current Alcohol intake frequency: 0-2 drinks per day Patient Tobacco Use Status: Current someday Tobacco user Cigarettes Per Day: 2 e-Cigarette/Vaping Use: Never Used Second Hand Smoke Exposure: No Advance Directives: No Advance Directives Information Provided: No service: No Current occupational status: disabled Physical Exam ED Vital Signs: Vital Signs - 24 hr 10/28/22 22:27 10/29/22 00:15 Temperature 98.3 F 97.9 F Pulse Rate 71 67 Respiratory Rate 16 14 Blood Pressure 150/70 H 138/85 Pulse Oximetry 98 99 Oxygen Delivery Method Room Air Room Air BMI result Body Mass Index 22.3 Const Other: Appearance: Alert. Oriented X3. No acute distress. Eyes: Pupils equal, round and reactive to light. ENT: Pharynx normal. Neck: Normal inspection. Neck supple. No lymph nodes noted. No crepitus CVS: Normal heart rate and rhythm. Pulses normal. Normal S1 and S2 Respiratory: No respiratory distress. Breath sounds normal. No Wheezing. No rales Abdomen: Soft and nontender. No rigidity. No distention. Skin: Skin warm and dry. Normal skin color. Normal skin turgor. Extremities: No lower extremity edema. No Lacerations. No Rash Neuro: Oriented X 3. No motor deficit. No sensory deficit. Moving all extremities. No slurred speech. CN 2 through 12 grossly intact Psych: calm, cooperative, normal affect Course Course Course Narrative: Patient's blood glucose in the 160s, alert and oriented x4, no physical complaints. I discussed with the patient that we will go ahead and order basic labs. Also, additionally I ordered alcohol level and U tox, patient has history of alcohol and substance abuse Patient's glucose 129. Patient states that he feels completely back to normal. It is unclear why patient became hypoglycemic. Patient states that he is aware he takes some other diabetic medications other than metformin. On the listed medications that [facility] provides to us, there is no other agent that may be causing hypoglycemia. Patient states that he gets his medications from some other pharmacy, his medications are mailed to him. I discussed with the patient to continue taking metformin and hold off on other diabetic medications. However, patient does not know any of his medications. At this time, we will not do any changes. Discussed to call his primary care physician tomorrow and find out what medications he is taking. Into discussed that he had hypoglycemia given. Patient being provided with emergency kit for hypoglycemia Medical Decision Making Medical Decision Making Differential Diagnoses: Differential diagnosis (Hypoglycemia, sepsis, syncope) Lab Attestation: I reviewed the patient's lab results. (Patient's glucose remains stable, patient asymptomatic, creatinine elevated at baseline) Tests considered but not performed: Tests Considered But Not Performed (CT scan of the abdomen/pelvis was considered to rule out a pancreatic tumor/insulinoma. However, patient states that he is aware that he has several diabetic medications at home. Discussed to only take metformin at home and have a follow-up with his primary care physician and to call tomorrow for ) Discharge Plan Discharge Clinical Impression: Hypoglycemia Patient Disposition: Home, Self-Care Instructions: Hypoglycemia in a Person with Diabetes (ED) Additional Instructions: Please follow-up with your primary care physician tomorrow. If you have any worsening or new symptoms, please return to the emergency room or call 911 Prescriptions: New Glucagon Emergency Kit (human) 1 mg recon soln 1 mg subcut Q20M PRN (Reason: hypoglycemia) Qty: 1 1RF Rx Instructions: until target blood sugar attained No Action omeprazole 20 mg capsule,delayed release(DR/EC) 20 mg PO DAILY 90 Days Qty: 90 2RF tramadol 50 mg tablet 50 mg PO BEDTIME Qty: 5 0RF ondansetron 4 mg tablet,disintegrating 4 mg PO Q8H PRN (Reason: nausea and vomiting) Qty: 20 0RF levofloxacin 250 mg tablet 250 mg PO DAILY 7 Days Qty: 7 0RF sennosides [senna] 8.6 mg tablet 8.6 mg PO BEDTIME PRN (Reason: constipation) Qty: 30 0RF acetaminophen [Tylenol Extra Strength] 500 mg tablet 500 mg PO Q6H PRN (Reason: pain or fever) Qty: 20 0RF lidocaine [Lidoderm] 5 % adhesive patch,medicated 1 patch topical DAILY MDD remove after 12 hours PRN (Reason: pain) Qty: 30 0RF Rx Instructions: leave on most painful area for up to 12 hrs naproxen 500 mg tablet 500 mg PO BID PRN (Reason: pain) 10 Days Qty: 20 0RF cyclobenzaprine 5 mg tablet 5 mg PO Q8H PRN (Reason: pain (scale score 7-10)) 5 Days Qty: 14 0RF acetaminophen [Tylenol Extra Strength] 500 mg tablet 500 mg PO Q6H PRN (Reason: pain or fever) Qty: 20 0RF lidocaine [Lidoderm] 5 % adhesive patch,medicated 1 patch topical DAILY MDD remove after 12 hours PRN (Reason: pain) Qty: 30 0RF Rx Instructions: leave on most painful area for up to 12 hrs metformin 500 mg tablet extended release 24 hr 500 mg PO BID Cerovite Advanced Formula 18-400 mg-mcg tablet PO melatonin 5 mg tablet PO aspirin 81 mg tablet,delayed release (DR/EC) 81 mg PO BEDTIME atorvastatin 20 mg tablet 20 mg PO DAILY losartan 50 mg tablet 50 mg PO DAILY Fish Oil 340-1,000 mg capsule 1 cap PO BID gabapentin 100 mg capsule 200 mg PO BID nicotine 14 mg/24 hr patch 24 hour 0 patch topical naproxen 500 mg tablet 500 mg PO BID mirtazapine 30 mg tablet 30 mg PO BEDTIME chlorthalidone 25 mg tablet 25 mg PO DAILY lidocaine HCl [Aspercreme (lidocaine HCl)] 4 % cream 1 appl topical BID PRN (Reason: pain) 30 Days Qty: 120 3RF Fluad Quad 2020-21(65y up)(PF) 60 mcg (15 mcg x 4)/0.5 mL syringe IM polyethylene glycol 3350 [Miralax] 17 gram/dose powder 238 g PO ONCE 1 Days Qty: 238 0RF Rx Instructions: Take as directed by mouth the day before your procedure. bisacodyl [Dulcolax (bisacodyl)] 5 mg tablet,delayed release (DR/EC) 10 mg PO ONCE 1 Days Qty: 2 0RF Rx Instructions: Take 2 tablets by mouth at 12:00pm the day before your procedure.
[2022-10-28 22:38] LABS: Glucose, Whole Blood 169 mg/dL (60-115)
[2022-10-28 22:50] LABS: MANUAL DIFF FLAG NO
[2022-10-28 22:52] LABS: Basophils Percent Auto 0.2 % (0-2); Eosinophils Absolute Auto 0.3 X10*3/uL (0.0-0.4); Eosinophils Percent Auto 3.6 % (0-4); Hematocrit 37.7 % (42.0-52.0); Hemoglobin 12.5 g/dl (14.0-18.0); Imm Gran Abs Auto 0.03 X10*3/uL (0.00-0.03); Imm Gran Pct Auto 0.3 % (0.0-0.4); Lymphocytes Absolute Auto 1.8 X10*3/uL (1.2-4.9); Lymphocytes Percent Auto 19.3 % (20-40); Mean Corpuscular HGB Conc 33.2 g/dl (31.0-36.0); Mean Corpuscular Hemoglobin 31.6 pg (27.0-33.0); Mean Corpuscular Volume 95.2 fL (80.0-98.0); Mean Platelet Volume 10.4 fL (9.4-12.4); Monocytes Absolute Auto 0.7 X10*3/uL (0.1-1.2); Monocytes Percent Auto 7.5 % (2-11); Neutrophils Absolute Auto 6.5 x10*3/uL (2.0-8.3); Neutrophils Percent Auto 69.1 % (45-73); Platelet Count 217 X10*3/uL (160-400); Red Blood Count 3.96 X10*6/uL (4.60-5.80); Red Cell Distribution Width 11.8 % (11.0-16.0); White Blood Count 9.4 X10*3/uL (4.8-10.8)
[2022-10-28 23:08] LABS: Ethanol < 10 mg/dL
[2022-10-28 23:11] LABS: Alanine Aminotransferase 21 U/L (0-40); Albumin Level 4.3 g/dL (3.5-5.0); Alkaline Phosphatase 78 U/L (39-117); Anion Gap 15 (12-20); Aspartate Amino Transferase 21 U/L (5-37); Bilirubin Direct < 0.2 mg/dL (0.0-0.5); Bilirubin Total 0.3 mg/dL (0.0-1.0); Blood Urea Nitrogen 37 mg/dL (9-16); Calcium 9.7 mg/dL (8.4-10.2); Carbon Dioxide 26 mmol/L (22-29); Chloride 103 mmol/L (96-108); Creatinine Clr Calc Pharmacy 35.9; Estimated Glomerular Filt Rate 36; Glucose Random 204 mg/dL (60-115); Potassium 4.3 mmol/L (3.3-5.1); Sodium 140 mmol/L (135-145); Total Protein 6.9 g/dL (6.5-8.0)
[2022-10-28 23:56] LABS: Glucose, Whole Blood 129 mg/dL (60-115)
[2022-10-29 00:15] VITALS: BP 138/85; PULSE 67; RESP 14; TEMP 36.6; O2SAT 99
[2022-10-29 00:31] LABS: Appearance Urine Clear; Color Urine Yellow; Glucose Urine UA Negative (Negative); Leukocyte Esterase Urine Negative (Negative); Nitrite Urine Negative (Negative); PH 5.5 (5.0-9.0); Specific Gravity - Urine 1.015 (1.005-1.025); Urine Blood Negative (Negative); Urine Ketones Negative (Negative); Urine Protein Negative (Neg-Trace)
[2022-10-29 00:35] LABS: Amphetamine Screen Urine Not Detected (Not Detect); Barbiturates, Urine Not Detected (Not Detect); Benzodiazepines Screen Urine Not Detected (Not Detect); Cannabinoid Screen Urine Not Detected (Not Detect); Cocaine Screen Urine POSITIVE (Not Detect); Fentanyl, urine Not Detected (Not Detect); Opiate Screen Urine Not Detected (Not Detect); Phencyclidine Screen Urine Not Detected (Not Detect)
== END 2022-10-29 01:57 | disposition home or self-care (01) ==
PROVIDERS: Emergency Provider Emergency Medicine
DX: E11.649 Type 2 diabetes mellitus with hypoglycemia without coma (principal); F17.210 Nicotine dependence, cigarettes, uncomplicated; Z71.6 Tobacco abuse counseling; Z79.899 Other long term (current) drug therapy; Z79.84 Long term (current) use of oral hypoglycemic drugs
CPT/HCPCS: 36415; 80048; 80076; 80307; 81003; 82077; 82947; 85025; 99283

== ENCOUNTER 2022-12-14 12:48 | Emergency (ER) | payer MEDICARE, MEDICAID, SELFPAY ==
--- NOTE | ~2022-12-14 | XR_ITS ---
EXAMINATION: XR CHEST CLINICAL INFORMATION: Chest pain COMPARISON: 05/01/2022 TECHNIQUE: Frontal view of the chest was obtained. FINDINGS: Cardiac leads overlie the chest. The lungs are well expanded. There is no focal consolidation, edema, or effusion. No pneumothorax. The cardiomediastinal silhouette is within normal limits. No acute osseous abnormality. XR/XR chest 1V IMPRESSION: No acute pulmonary disease.
--- NOTE | 2022-12-14 12:51 | ECG_ITS ---
Test Reason : CP Blood Pressure : / mmHG Vent. Rate : 057 BPM Atrial Rate : 057 BPM P-R Int : 152 ms QRS Dur : 080 ms QT Int : 394 ms P-R-T Axes : 011 -26 044 degrees QTc Int : 383 ms Sinus bradycardia Otherwise normal ECG When compared to the previous EKG of 01 may 2022, rate slower Referred By: Generic ED Physician Electronically Signed By:MANUEL HUFFMAN
[2022-12-14 12:55] VITALS: BP 170/88; BP 197/83; PULSE 61; PULSE 63; RESP 18; TEMP 36.6; O2SAT 95; O2SAT 97; BMI 25.8
[2022-12-14 13:28] LABS: MANUAL DIFF FLAG NO
[2022-12-14 13:30] LABS: Basophils Percent Auto 0.3 % (0-2); Eosinophils Absolute Auto 0.2 X10*3/uL (0.0-0.4); Eosinophils Percent Auto 3.4 % (0-4); Hematocrit 37.8 % (42.0-52.0); Hemoglobin 12.3 g/dl (14.0-18.0); Imm Gran Abs Auto 0.02 X10*3/uL (0.00-0.03); Imm Gran Pct Auto 0.3 % (0.0-0.4); Lymphocytes Absolute Auto 1.9 X10*3/uL (1.2-4.9); Lymphocytes Percent Auto 29.7 % (20-40); Mean Corpuscular HGB Conc 32.5 g/dl (31.0-36.0); Mean Corpuscular Hemoglobin 30.4 pg (27.0-33.0); Mean Corpuscular Volume 93.3 fL (80.0-98.0); Mean Platelet Volume 11.2 fL (9.4-12.4); Monocytes Absolute Auto 0.6 X10*3/uL (0.1-1.2); Monocytes Percent Auto 9.2 % (2-11); Neutrophils Absolute Auto 3.7 x10*3/uL (2.0-8.3); Neutrophils Percent Auto 57.1 % (45-73); Platelet Count 186 X10*3/uL (160-400); Red Blood Count 4.05 X10*6/uL (4.60-5.80); Red Cell Distribution Width 12.6 % (11.0-16.0); White Blood Count 6.5 X10*3/uL (4.8-10.8)
[2022-12-14 13:35] LABS: Prothrombin Time 11.3 SEC (10.0-13.1)
[2022-12-14 13:57] LABS: Alanine Aminotransferase 19 U/L (0-40); Albumin Level 4.1 g/dL (3.5-5.0); Alkaline Phosphatase 66 U/L (39-117); Anion Gap 13 (12-20); Aspartate Amino Transferase 18 U/L (5-37); Bilirubin Total 0.4 mg/dL (0.0-1.0); Blood Urea Nitrogen 22 mg/dL (9-16); Calcium 9.5 mg/dL (8.4-10.2); Carbon Dioxide 26 mmol/L (22-29); Chloride 106 mmol/L (96-108); Creatinine Clr Calc Pharmacy 38.9; Estimated Glomerular Filt Rate 46; Glucose Random 112 mg/dL (60-115); Lipase 66 U/L (8-78); Potassium 4.2 mmol/L (3.3-5.1); Sodium 141 mmol/L (135-145); Total Protein 6.8 g/dL (6.5-8.0)
[2022-12-14 14:08] LABS: Troponin-I High Sensitivity < 3.5 ng/L (<3.5-35.0)
--- NOTE | 2022-12-14 15:59 | ED.CHESTPAIN ---
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 Patient states that it was in place for approximately 2 hours and he noted that he was hypertensive. Patient states that he has not seen his primary care provider. Related Data Home Medications Medication Instructions Recorded Confirmed aspirin 81 mg tablet,delayed 81 mg PO BEDTIME 09/01/20 04/18/21 release atorvastatin 20 mg tablet 20 mg PO DAILY 09/01/20 04/18/21 chlorthalidone 25 mg tablet 25 mg PO DAILY 09/01/20 04/18/21 gabapentin 100 mg capsule 200 mg PO BID 09/01/20 04/18/21 losartan 50 mg tablet 50 mg PO DAILY 09/01/20 04/18/21 melatonin 5 mg tablet mg PO 09/01/20 04/18/21 metformin 500 mg tablet,extended 500 mg PO BID 09/01/20 04/18/21 release 24 hr mirtazapine 30 mg tablet 30 mg PO BEDTIME 09/01/20 04/18/21 multivitamin-ferrous tab PO 09/01/20 04/18/21 fumarate-folic acid 18 mg-400 mcg tablet naproxen 500 mg tablet 500 mg PO BID 09/01/20 04/18/21 nicotine 14 mg/24 hr daily 0 patch topical 09/01/20 04/18/21 transdermal patch omega-3 fatty acids-fish oil 340 1 cap PO BID 09/01/20 04/18/21 mg-1,000 mg capsule flu vacc 2019-(65yr ml IM 12/19/20 04/18/21 up)-MF59C(PF) 60 mcg(15 mcgx4)/0.5 mL IM syringe Previous Rx's Medication Instructions Recorded levofloxacin 250 mg tablet 250 mg PO DAILY 7 days #7 tabs 09/29/20 ondansetron 4 mg disintegrating 4 mg PO Q8H PRN nausea and 09/29/20 tablet vomiting #20 tabs sennosides 8.6 mg tablet (senna) 8.6 mg PO BEDTIME PRN constipation 09/29/20 #30 tabs lidocaine HCl 4 % topical cream 1 appl topical BID PRN pain 30 01/09/21 (Aspercreme (lidocaine HCl)) days #120 grams tramadol 50 mg tablet 50 mg PO BEDTIME #5 tabs 01/10/21 bisacodyl 5 mg tablet,delayed 10 mg PO ONCE colonoscopy prep 1 04/18/21 release (Dulcolax (bisacodyl)) day #2 tabs polyethylene glycol 3350 17 238 g PO ONCE 1 day #238 grams 04/18/21 gram/dose oral powder (Miralax) acetaminophen 500 mg tablet 500 mg PO Q6H PRN pain or fever 09/07/21 (Tylenol Extra Strength) #20 tabs cyclobenzaprine 5 mg tablet 5 mg PO Q8H PRN pain (scale score 09/07/21 7-10) 5 days #14 tabs lidocaine 5 % topical patch 1 patch topical DAILY PRN pain #30 09/07/21 (Lidoderm) ea naproxen 500 mg tablet 500 mg PO BID PRN pain 10 days #20 09/07/21 tabs acetaminophen 500 mg tablet 500 mg PO Q6H PRN pain or fever 10/01/21 (Tylenol Extra Strength) #20 tabs lidocaine 5 % topical patch 1 patch topical DAILY PRN pain #30 10/01/21 (Lidoderm) ea omeprazole 20 mg capsule,delayed 20 mg PO DAILY 90 days #90 caps 10/19/21 release glucagon 1 mg solution for 1 mg subcut Q20M PRN hypoglycemia 10/29/22 injection (Glucagon Emergency Kit) #1 ea Allergies Allergy/AdvReac Type Severity Reaction Status Date / Time No Known Allergies Allergy Verified 10/28/22 22:26 Review of Systems Review of Systems: Pertinent positives and negatives as stated in [facility] Past Medical History Source: nursing notes reviewed Medical History Alcohol abuse Appendicitis Cocaine abuse Diabetes Diabetes 1.5, managed as type 1 HTN (hypertension) Kidney disease Family History Family History Father No problems noted. Mother Diabetes Pancreas (digestive gland) works poorly Social History Social History Household Members: None Alcohol intake: unknown Patient Tobacco Use Status: Current someday Tobacco user Cigarettes Per Day: 2 Smoked in Last 30 Days: No e-Cigarette/Vaping Use: Never Used Second Hand Smoke Exposure: No Use of substances other than those prescribed or required for medical reasons: Unknown Advance Directives: No Advance Directives Information Provided: No service: No Current occupational status: disabled Physical Exam Vital Signs: Vital Signs: Last Vital Signs Temp 97.8 F 12/14/22 12:55 Pulse 63 12/14/22 12:55 Resp 18 12/14/22 12:55 BP 170/88 H 12/14/22 12:55 Pulse Ox 95 12/14/22 12:55 O2 Del Method 12/14/22 12:55 BMI result Body Mass Index 25.8 VITAL SIGNS: Reviewed. GENERAL: Well developed, well nourished, in no acute distress. HEAD: Normocephalic/atraumatic EYES: PERRLA, EOMI EARS: Ext canals without abnormality OROPHARYNX: no oral lesions noted, posterior pharynx clear NECK: Supple, no adenopathy LUNGS: Normal breath sounds. No adventitious sounds or accessory muscle use. SpO2<95> CARDIOVASCULAR: Regular rate and rhythm without noted murmurs, no JVD or lower extremity edema. ABDOMEN: Soft, non-tender, non-distended with bowel sounds. MUSCULOSKELETAL: No tenderness, deformities, or effusions noted on gross inspection. EXTREMITIES: No cyanosis, clubbing or edema. SKIN: Inspection of the skin reveals no rashes NEUROLOGIC: Alert and oriented x 3. Strength and sensation to light touch were grossly intact x 4. Medical Decision Making Medical Decision Making [facility] Narrative: 77-year-old male with review of lab work and workup and my interpretation is as patient has stable chronic renal dysfunction, troponins are negative, EKG does not show acute changes. Chest x-ray without acute findings. Patient's blood pressure has remained stable, no evidence of glycemic derangement despite carrying the diagnosis of diabetes. Patient was a very difficult historian. He was strongly encouraged to follow-up with his primary care provider. He is otherwise stable for discharge. Differential Diagnosis Differential Diagnoses: The differential diagnosis associated with the presentation includes Please see the discussion above Lab Data [facility] Lab Attestation statement: I reviewed the patient's lab results. Please see the discussion above 12/14/22 13:22 12/14/22 13:22 Labs: Lab Results 12/14/22 12/14/22 12/14/22 Range/Units 13:22 13:22 13:22 WBC 6.5 (4.8-10.8) X10*3/uL RBC 4.05 L (4.60-5.80) X10*6/uL Hgb 12.3 L (14.0-18.0) g/dl Hct 37.8 L (42.0-52.0) % MCV 93.3 (80.0-98.0) fL MCH 30.4 (27.0-33.0) pg MCHC 32.5 (31.0-36.0) g/dl RDW 12.6 (11.0-16.0) % Plt Count 186 (160-400) X10*3/uL MPV 11.2 (9.4-12.4) fL Immature Gran % (Auto) 0.3 (0.0-0.4) % Neut % (Auto) 57.1 (45-73) % Lymph % (Auto) 29.7 (20-40) % [place] % (Auto) 9.2 (2-11) % Eos % (Auto) 3.4 (0-4) % Baso % (Auto) 0.3 (0-2) % Lymph # (Auto) 1.9 (1.2-4.9) X10*3/uL [place] # (Auto) 0.6 (0.1-1.2) X10*3/uL Eos # (Auto) 0.2 (0.0-0.4) X10*3/uL Baso # (Auto) 0.0 (0.0-0.2) X10*3/uL Abs Immat Gran (auto) 0.02 (0.00-0.03) X10*3/uL Absolute Neuts (auto) 3.7 (2.0-8.3) x10*3/uL Absolute Nucleated RBC 0.000 (0.0-0.012) X10*3/uL Nucleated RBC % (auto) 0.0 (0.0-0.2) /100WBC PT 11.3 (10.0-13.1) SEC INR 1.0 (0.9-1.1) Sodium 141 (135-145) mmol/L Potassium 4.2 (3.3-5.1) mmol/L Chloride 106 (96-108) mmol/L Carbon Dioxide 26 (22-29) mmol/L Anion Gap 13 (12-20) BUN 22 H (9-16) mg/dL Creatinine 1.48 H (0.5-1.4) mg/dL Estim Creat Clear Calc 38.9 Estimated GFR 46 Random Glucose 112 (60-115) mg/dL Calcium 9.5 (8.4-10.2) mg/dL Total Bilirubin 0.4 (0.0-1.0) mg/dL AST 18 (5-37) U/L ALT 19 (0-40) U/L Alkaline Phosphatase 66 (39-117) U/L Troponin I High Sens (<3.5-35.0) ng/L Total Protein 6.8 (6.5-8.0) g/dL Albumin 4.1 (3.5-5.0) g/dL Lipase 66 (8-78) U/L 12/14/22 Range/Units 13:22 WBC (4.8-10.8) X10*3/uL RBC (4.60-5.80) X10*6/uL Hgb (14.0-18.0) g/dl Hct (42.0-52.0) % MCV (80.0-98.0) fL MCH (27.0-33.0) pg MCHC (31.0-36.0) g/dl RDW (11.0-16.0) % Plt Count (160-400) X10*3/uL MPV (9.4-12.4) fL Immature Gran % (Auto) (0.0-0.4) % Neut % (Auto) (45-73) % Lymph % (Auto) (20-40) % [place] % (Auto) (2-11) % Eos % (Auto) (0-4) % Baso % (Auto) (0-2) % Lymph # (Auto) (1.2-4.9) X10*3/uL [place] # (Auto) (0.1-1.2) X10*3/uL Eos # (Auto) (0.0-0.4) X10*3/uL Baso # (Auto) (0.0-0.2) X10*3/uL Abs Immat Gran (auto) (0.00-0.03) X10*3/uL Absolute Neuts (auto) (2.0-8.3) x10*3/uL Absolute Nucleated RBC (0.0-0.012) X10*3/uL Nucleated RBC % (auto) (0.0-0.2) /100WBC PT (10.0-13.1) SEC INR (0.9-1.1) Sodium (135-145) mmol/L Potassium (3.3-5.1) mmol/L Chloride (96-108) mmol/L Carbon Dioxide (22-29) mmol/L Anion Gap (12-20) BUN (9-16) mg/dL Creatinine (0.5-1.4) mg/dL Estim Creat Clear Calc Estimated GFR Random Glucose (60-115) mg/dL Calcium (8.4-10.2) mg/dL Total Bilirubin (0.0-1.0) mg/dL AST (5-37) U/L ALT (0-40) U/L Alkaline Phosphatase (39-117) U/L Troponin I High Sens < 3.5 (<3.5-35.0) ng/L Total Protein (6.5-8.0) g/dL Albumin (3.5-5.0) g/dL Lipase (8-78) U/L Independent Interpretation I performed an independent interpretation of an: EKG Interpretation: Sinus bradycardia, HR -57, no STEMI, CA/QRS/QTC is within normal limits Discharge Plan Discharge Clinical Impression: Chest pain, Hypertension Patient Disposition: Home, Self-Care Instructions: Chest Pain (ED), DASH Eating Plan (ED), Hypertension (ED) Additional Instructions: 1. Reanudar todos los medicamentos caseros. 2. Mary Ann un seguimiento con abel proveedor de atenci?n primaria llamando a la oficina a primera hora del lunes por la ma?charity para programar boy ilana para la reevaluaci?n y el manejo ambulatorio adicional. Regrese a la negrita de emergencias si los s?ntomas empeoran. 1. Resume all home medications. 2. Follow-up with your primary care provider by calling the office 1st thing on Saturday morning to set up an appointment for re-evaluation and further outpatient management. Return to the ER for any worsening symptoms. Prescriptions: No Action omeprazole 20 mg capsule,delayed release(DR/EC) 20 mg PO DAILY 90 Days Qty: 90 2RF tramadol 50 mg tablet 50 mg PO BEDTIME Qty: 5 0RF ondansetron 4 mg tablet,disintegrating 4 mg PO Q8H PRN (Reason: nausea and vomiting) Qty: 20 0RF levofloxacin 250 mg tablet 250 mg PO DAILY 7 Days Qty: 7 0RF sennosides [senna] 8.6 mg tablet 8.6 mg PO BEDTIME PRN (Reason: constipation) Qty: 30 0RF acetaminophen [Tylenol Extra Strength] 500 mg tablet 500 mg PO Q6H PRN (Reason: pain or fever) Qty: 20 0RF lidocaine [Lidoderm] 5 % adhesive patch,medicated 1 patch topical DAILY MDD remove after 12 hours PRN (Reason: pain) Qty: 30 0RF Rx Instructions: leave on most painful area for up to 12 hrs naproxen 500 mg tablet 500 mg PO BID PRN (Reason: pain) 10 Days Qty: 20 0RF cyclobenzaprine 5 mg tablet 5 mg PO Q8H PRN (Reason: pain (scale score 7-10)) 5 Days Qty: 14 0RF Glucagon Emergency Kit (human) 1 mg recon soln 1 mg subcut Q20M PRN (Reason: hypoglycemia) Qty: 1 1RF Rx Instructions: until target blood sugar attained acetaminophen [Tylenol Extra Strength] 500 mg tablet 500 mg PO Q6H PRN (Reason: pain or fever) Qty: 20 0RF lidocaine [Lidoderm] 5 % adhesive patch,medicated 1 patch topical DAILY MDD remove after 12 hours PRN (Reason: pain) Qty: 30 0RF Rx Instructions: leave on most painful area for up to 12 hrs metformin 500 mg tablet extended release 24 hr 500 mg PO BID Cerovite Advanced Formula 18-400 mg-mcg tablet PO melatonin 5 mg tablet PO aspirin 81 mg tablet,delayed release (DR/EC) 81 mg PO BEDTIME atorvastatin 20 mg tablet 20 mg PO DAILY losartan 50 mg tablet 50 mg PO DAILY Fish Oil 340-1,000 mg capsule 1 cap PO BID gabapentin 100 mg capsule 200 mg PO BID nicotine 14 mg/24 hr patch 24 hour 0 patch topical naproxen 500 mg tablet 500 mg PO BID mirtazapine 30 mg tablet 30 mg PO BEDTIME chlorthalidone 25 mg tablet 25 mg PO DAILY lidocaine HCl [Aspercreme (lidocaine HCl)] 4 % cream 1 appl topical BID PRN (Reason: pain) 30 Days Qty: 120 3RF Fluad Quad 2020-21(65y up)(PF) 60 mcg (15 mcg x 4)/0.5 mL syringe IM polyethylene glycol 3350 [Miralax] 17 gram/dose powder 238 g PO ONCE 1 Days Qty: 238 0RF Rx Instructions: Take as directed by mouth the day before your procedure. bisacodyl [Dulcolax (bisacodyl)] 5 mg tablet,delayed release (DR/EC) 10 mg PO ONCE 1 Days Qty: 2 0RF Rx Instructions: Take 2 tablets by mouth at 12:00pm the day before your procedure. Referrals: Luis Dickerson MD [Physician] - Print Language: Slovak
[2022-12-14 16:00] VITALS: PULSE 70; RESP 18; O2SAT 100
== END 2022-12-14 16:30 | disposition home or self-care (01) ==
PROVIDERS: Emergency Provider Student in an Organized Health Care Education/Training Program
DX: R07.9 Chest pain, unspecified (principal); I10 Essential (primary) hypertension; E13.9 Other specified diabetes mellitus without complications; F17.210 Nicotine dependence, cigarettes, uncomplicated; Z79.82 Long term (current) use of aspirin; Z79.02 Long term (current) use of antithrombotics/antiplatelets; Z79.899 Other long term (current) drug therapy; Z79.84 Long term (current) use of oral hypoglycemic drugs
CPT/HCPCS: 36415; 71045; 80053; 83690; 84484; 85025; 85610; 93005; 99283; 99285

== ENCOUNTER 2023-09-03 14:59 | Outpatient (REF) | payer MEDICARE, MEDICAID, SELFPAY ==
--- NOTE | ~2023-09-03 | XR_ITS ---
EXAMINATION: XR CHEST CLINICAL INFORMATION: Shortness of breath. COMPARISON: None available. TECHNIQUE: 2 views of the chest were obtained. FINDINGS: No significant abnormality is noted involving the heart, lungs, mediastinum, bony thorax or soft tissues. XR/XR chest 2V IMPRESSION: Unremarkable examination.
== END 2023-09-03 15:00 | disposition home or self-care (01) ==
LOC: HO.HHCX 14:59
PROVIDERS: Visit Provider Nurse Practitioner Family
DX: R06.02 Shortness of breath (principal)
CPT/HCPCS: 71046

== ENCOUNTER 2023-11-27 12:45 | Emergency (ER) | payer OTHER, SELFPAY ==
--- NOTE | ~2023-11-27 | XR_ITS ---
EXAMINATION: XR FOOT, LEFT CLINICAL INFORMATION: Wound. Evaluate for osteomyelitis. COMPARISON: None available. TECHNIQUE: 3 views of the left foot. FINDINGS: Bones have normal alignment throughout the foot. No fracture or subluxation. Joint spaces are maintained. No erosions or periostitis. No evidence of osteomyelitis. 0.1 x 0.6 cm linear opacity is present in soft tissues at the plantar aspect of the second toe (plantar to the proximal phalanx of the toe). Query if there is any history of trauma in this region. This could represent an old calcification or foreign body from penetrating injury. XR/XR foot LT min 3V IMPRESSION: * No evidence of osteomyelitis in the left foot. * A linear opacity plantar to the proximal phalanx of the second toe appears to represent a foreign body. Query if there is any history of penetrating trauma in the soft tissues.
[2023-11-27 13:00] VITALS: PULSE 82; RESP 18; TEMP 37; O2SAT 98; BMI 20.4
--- NOTE | 2023-11-27 13:00 | ED_ITS ---
HPI - Wound/Laceration General Chief Complaint: General Medical Stated Complaint: L foot wound? Diabetic Related Data Home Medications Medication Instructions Recorded Confirmed aspirin 81 mg tablet,delayed 81 mg PO BEDTIME 09/01/20 04/18/21 release atorvastatin 20 mg tablet 20 mg PO DAILY 09/01/20 04/18/21 chlorthalidone 25 mg tablet 25 mg PO DAILY 09/01/20 04/18/21 gabapentin 100 mg capsule 200 mg PO BID 09/01/20 04/18/21 losartan 50 mg tablet 50 mg PO DAILY 09/01/20 04/18/21 melatonin 5 mg tablet mg PO 09/01/20 04/18/21 metformin 500 mg tablet,extended 500 mg PO BID 09/01/20 04/18/21 release 24 hr mirtazapine 30 mg tablet 30 mg PO BEDTIME 09/01/20 04/18/21 multivitamin-ferrous tab PO 09/01/20 04/18/21 fumarate-folic acid 18 mg-400 mcg tablet naproxen 500 mg tablet 500 mg PO BID 09/01/20 04/18/21 nicotine 14 mg/24 hr daily 0 patch topical 09/01/20 04/18/21 transdermal patch omega-3 fatty acids-fish oil 340 1 cap PO BID 09/01/20 04/18/21 mg-1,000 mg capsule flu vacc 2019-(65yr ml IM 12/19/20 04/18/21 up)-MF59C(PF) 60 mcg(15 mcgx4)/0.5 mL IM syringe Previous Rx's Medication Instructions Recorded levofloxacin 250 mg tablet 250 mg PO DAILY 7 days #7 tabs 09/29/20 ondansetron 4 mg disintegrating 4 mg PO Q8H PRN nausea and 09/29/20 tablet vomiting #20 tabs sennosides 8.6 mg tablet (senna) 8.6 mg PO BEDTIME PRN constipation 09/29/20 #30 tabs lidocaine HCl 4 % topical cream 1 appl topical BID PRN pain 30 01/09/21 (Aspercreme (lidocaine HCl)) days #120 grams tramadol 50 mg tablet 50 mg PO BEDTIME #5 tabs 01/10/21 bisacodyl 5 mg tablet,delayed 10 mg (2 x 5 mg) PO ONCE 04/18/21 release (Dulcolax (bisacodyl)) colonoscopy prep 1 day #2 tabs polyethylene glycol 3350 17 238 g PO ONCE 1 day #238 grams 04/18/21 gram/dose oral powder (Miralax) acetaminophen 500 mg tablet 500 mg PO Q6H PRN pain or fever 09/07/21 (Tylenol Extra Strength) #20 tabs cyclobenzaprine 5 mg tablet 5 mg PO Q8H PRN pain (scale score 09/07/21 7-10) 5 days #14 tabs lidocaine 5 % topical patch 1 patch topical DAILY PRN pain #30 09/07/21 (Lidoderm) ea naproxen 500 mg tablet 500 mg PO BID PRN pain 10 days #20 09/07/21 tabs acetaminophen 500 mg tablet 500 mg PO Q6H PRN pain or fever 10/01/21 (Tylenol Extra Strength) #20 tabs lidocaine 5 % topical patch 1 patch topical DAILY PRN pain #30 10/01/21 (Lidoderm) ea omeprazole 20 mg capsule,delayed 20 mg PO DAILY 90 days #90 caps 10/19/21 release glucagon 1 mg solution for 1 mg subcut Q20M PRN hypoglycemia 10/29/22 injection (Glucagon Emergency Kit) #1 ea Allergies Allergy/AdvReac Type Severity Reaction Status Date / Time No Known Allergies Allergy Verified 10/28/22 22:26 [facility] Past Medical History Onset Date is defined in the Problem List Problems that require an onset date and time if occurred within 24 hrs of arrival to the ED Aortic Dissection and Rupture; Neurologic impairment; Cardiopulmonary Arrest; Endotracheal Intubation; Insertion or Replacement of Mechanical Circulatory Assist Device Medical History Alcohol abuse Appendicitis Cocaine abuse Diabetes Diabetes 1.5, managed as type 1 HTN (hypertension) Kidney disease Family History Family History Father No problems noted. Mother Diabetes Pancreas (digestive gland) works poorly Social History Social History Household Members: None Alcohol intake: unknown Patient Tobacco Use Status: Current someday Tobacco user Cigarettes Per Day: 2 e-Cigarette/Vaping Use: Never Used Second Hand Smoke Exposure: No Advance Directives: No Advance Directives Information Provided: No service: No Current occupational status: disabled Physical Exam 2 Vital Signs: Vital Signs: Last Vital Signs Temp 98.6 F 11/27/23 13:00 Pulse 82 11/27/23 13:00 Resp 18 11/27/23 13:00 Pulse Ox 98 11/27/23 13:00 O2 Del Method Room Air 11/27/23 13:00 BMI result Body Mass Index 20.4 Course Course Course Narrative: RME: 78 year-old male w/ PMHx HTN, diabetes, substance abuse, CKD presenting to the ED c/o painful left foot wound x3 days. +yellow drainage & chills. denies fever +wound noted to L 1st MCP with surrounding erythema & ttp, NV intact +swelling Labs, XR, POC ordered Full HPI, ROS and PE to be performed by primary ED provider. Medical Decision Making Lab Data 11/27/23 13:34 11/27/23 13:34 Labs: Lab Results 11/27/23 Range/Units 13:34 WBC 8.2 (4.8-10.8) X10*3/uL RBC 3.86 L (4.60-5.80) X10*6/uL Hgb 12.2 L (14.0-18.0) g/dl Hct 37.2 L (42.0-52.0) % MCV 96.4 (80.0-98.0) fL MCH 31.6 (27.0-33.0) pg MCHC 32.8 (31.0-36.0) g/dl RDW 13.5 (11.0-16.0) % Plt Count 246 D (160-400) X10*3/uL MPV 10.7 (9.4-12.4) fL Immature Gran % (Auto) 0.4 (0.0-0.4) % Neut % (Auto) 59.8 (45-73) % Lymph % (Auto) 28.6 (20-40) % [place] % (Auto) 9.3 (2-11) % Eos % (Auto) 1.5 (0-4) % Baso % (Auto) 0.4 (0-2) % Lymph # (Auto) 2.3 (1.2-4.9) X10*3/uL [place] # (Auto) 0.8 (0.1-1.2) X10*3/uL Eos # (Auto) 0.1 (0.0-0.4) X10*3/uL Baso # (Auto) 0.0 (0.0-0.2) X10*3/uL Abs Immat Gran (auto) 0.03 (0.00-0.03) X10*3/uL Absolute Neuts (auto) 4.9 (2.0-8.3) x10*3/uL Absolute Nucleated RBC 0.000 (0.0-0.012) X10*3/uL Nucleated RBC % (auto) 0.0 (0.0-0.2) /100WBC ESR 14 (0-15) MM/HR Sodium 141 (135-145) mmol/L Potassium 4.4 (3.3-5.1) mmol/L Chloride 104 (96-108) mmol/L Carbon Dioxide 27 (22-29) mmol/L Anion Gap 14 (12-20) BUN 25 H (9-16) mg/dL Creatinine 1.63 H (0.5-1.4) mg/dL Estim Creat Clear Calc 36.2 Estimated GFR 41 Random Glucose 139 H (60-115) mg/dL Calcium 9.5 (8.4-10.2) mg/dL C-Reactive Protein < 0.10 (< or = 0.50) mg/dL Discharge Plan Discharge Clinical Impression: Wound of foot Patient Disposition: Left W/O Completing Treatment Prescriptions: No Action omeprazole 20 mg capsule,delayed release(DR/EC) 20 mg PO DAILY 90 Days Qty: 90 2RF tramadol 50 mg tablet 50 mg PO BEDTIME Qty: 5 0RF ondansetron 4 mg tablet,disintegrating 4 mg PO Q8H PRN (Reason: nausea and vomiting) Qty: 20 0RF levofloxacin 250 mg tablet 250 mg PO DAILY 7 Days Qty: 7 0RF sennosides [senna] 8.6 mg tablet 8.6 mg PO BEDTIME PRN (Reason: constipation) Qty: 30 0RF acetaminophen [Tylenol Extra Strength] 500 mg tablet 500 mg PO Q6H PRN (Reason: pain or fever) Qty: 20 0RF lidocaine [Lidoderm] 5 % adhesive patch,medicated 1 patch topical DAILY MDD remove after 12 hours PRN (Reason: pain) Qty: 30 0RF Rx Instructions: leave on most painful area for up to 12 hrs naproxen 500 mg tablet 500 mg PO BID PRN (Reason: pain) 10 Days Qty: 20 0RF cyclobenzaprine 5 mg tablet 5 mg PO Q8H PRN (Reason: pain (scale score 7-10)) 5 Days Qty: 14 0RF Glucagon Emergency Kit (human) 1 mg recon soln 1 mg subcut Q20M PRN (Reason: hypoglycemia) Qty: 1 1RF Rx Instructions: until target blood sugar attained acetaminophen [Tylenol Extra Strength] 500 mg tablet 500 mg PO Q6H PRN (Reason: pain or fever) Qty: 20 0RF lidocaine [Lidoderm] 5 % adhesive patch,medicated 1 patch topical DAILY MDD remove after 12 hours PRN (Reason: pain) Qty: 30 0RF Rx Instructions: leave on most painful area for up to 12 hrs metformin 500 mg tablet extended release 24 hr 500 mg PO BID Cerovite Advanced Formula 18-400 mg-mcg tablet PO melatonin 5 mg tablet PO aspirin 81 mg tablet,delayed release (DR/EC) 81 mg PO BEDTIME atorvastatin 20 mg tablet 20 mg PO DAILY losartan 50 mg tablet 50 mg PO DAILY Fish Oil 340-1,000 mg capsule 1 cap PO BID gabapentin 100 mg capsule 200 mg PO BID nicotine 14 mg/24 hr patch 24 hour 0 patch topical naproxen 500 mg tablet 500 mg PO BID mirtazapine 30 mg tablet 30 mg PO BEDTIME chlorthalidone 25 mg tablet 25 mg PO DAILY lidocaine HCl [Aspercreme (lidocaine HCl)] 4 % cream 1 appl topical BID PRN (Reason: pain) 30 Days Qty: 120 3RF Fluad Quad 2019-(65y up)(PF) 60 mcg (15 mcg x 4)/0.5 mL syringe IM polyethylene glycol 3350 [Miralax] 17 gram/dose powder 238 g PO ONCE 1 Days Qty: 238 0RF Rx Instructions: Take as directed by mouth the day before your procedure. bisacodyl [Dulcolax (bisacodyl)] 5 mg tablet,delayed release (DR/EC) 10 mg PO ONCE 1 Days Qty: 2 0RF Rx Instructions: Take 2 tablets by mouth at 12:00pm the day before your procedure. Interventions: LWBS Worksheet Last Done: 11/27/23 17:48 Discharge Date/Time: 11/27/23 19:14
[2023-11-27 13:42] LABS: MANUAL DIFF FLAG NO
[2023-11-27 13:44] LABS: Basophils Percent Auto 0.4 % (0-2); Eosinophils Absolute Auto 0.1 X10*3/uL (0.0-0.4); Eosinophils Percent Auto 1.5 % (0-4); Hematocrit 37.2 % (42.0-52.0); Hemoglobin 12.2 g/dl (14.0-18.0); Imm Gran Abs Auto 0.03 X10*3/uL (0.00-0.03); Imm Gran Pct Auto 0.4 % (0.0-0.4); Lymphocytes Absolute Auto 2.3 X10*3/uL (1.2-4.9); Lymphocytes Percent Auto 28.6 % (20-40); Mean Corpuscular HGB Conc 32.8 g/dl (31.0-36.0); Mean Corpuscular Hemoglobin 31.6 pg (27.0-33.0); Mean Corpuscular Volume 96.4 fL (80.0-98.0); Mean Platelet Volume 10.7 fL (9.4-12.4); Monocytes Absolute Auto 0.8 X10*3/uL (0.1-1.2); Monocytes Percent Auto 9.3 % (2-11); Neutrophils Absolute Auto 4.9 x10*3/uL (2.0-8.3); Neutrophils Percent Auto 59.8 % (45-73); Platelet Count 246 X10*3/uL (160-400); Red Blood Count 3.86 X10*6/uL (4.60-5.80); Red Cell Distribution Width 13.5 % (11.0-16.0); White Blood Count 8.2 X10*3/uL (4.8-10.8)
[2023-11-27 13:57] LABS: Anion Gap 14 (12-20); Blood Urea Nitrogen 25 mg/dL (9-16); C Reactive Protein < 0.10 mg/dL (< or = 0.50); Calcium 9.5 mg/dL (8.4-10.2); Carbon Dioxide 27 mmol/L (22-29); Chloride 104 mmol/L (96-108); Creatinine Clr Calc Pharmacy 36.2; Estimated Glomerular Filt Rate 41; Glucose Random 139 mg/dL (60-115); Potassium 4.4 mmol/L (3.3-5.1); Sodium 141 mmol/L (135-145)
[2023-11-27 14:20] LABS: Erythrocyte Sedimentation Rate 14 MM/HR (0-15)
--- NOTE | 2023-11-27 19:13 | PC.NURSE ---
Called patient to return to ED for antibiotics and that he possibly has a foreign body in foot.
== END 2023-11-27 19:14 | disposition left against medical advice (07) ==
LOC: HO.ED 19:08
PROVIDERS: Physician Assistant; Emergency Provider Emergency Medicine
DX: S91.302A Unspecified open wound, left foot, initial encounter (principal); X58.XXXA Exposure to other specified factors, initial encounter; E11.9 Type 2 diabetes mellitus without complications; Y93.9 Activity, unspecified; Y92.9 Unspecified place or not applicable; Y99.9 Unspecified external cause status; Z79.84 Long term (current) use of oral hypoglycemic drugs
CPT/HCPCS: 36415; 73630; 80048; 85025; 85652; 86140; 99281; 99283

== ENCOUNTER 2024-02-01 19:48 | Emergency (ER) | payer OTHER, SELFPAY ==
[2024-02-01 19:57] VITALS: BP 138/87; PULSE 69; RESP 16; TEMP 36.6; O2SAT 96
[2024-02-01 19:59] VITALS: BP 128/80; PULSE 80; O2SAT 98; BMI 25.3
[2024-02-01 20:19] LABS: MANUAL DIFF FLAG NO
[2024-02-01 20:20] LABS: Basophils Percent Auto 0.1 % (0-2); Eosinophils Absolute Auto 0.1 X10*3/uL (0.0-0.4); Eosinophils Percent Auto 2.1 % (0-4); Hematocrit 38.2 % (42.0-52.0); Hemoglobin 12.8 g/dl (14.0-18.0); Imm Gran Abs Auto 0.02 X10*3/uL (0.00-0.03); Imm Gran Pct Auto 0.3 % (0.0-0.4); Lymphocytes Percent Auto 29.4 % (20-40); Mean Corpuscular HGB Conc 33.5 g/dl (31.0-36.0); Mean Corpuscular Hemoglobin 31.2 pg (27.0-33.0); Mean Corpuscular Volume 93.2 fL (80.0-98.0); Mean Platelet Volume 10.1 fL (9.4-12.4); Monocytes Absolute Auto 0.6 X10*3/uL (0.1-1.2); Monocytes Percent Auto 8.7 % (2-11); Neutrophils Percent Auto 59.4 % (45-73); Platelet Count 198 X10*3/uL (160-400); Red Cell Distribution Width 12.6 % (11.0-16.0); White Blood Count 6.8 X10*3/uL (4.8-10.8)
[2024-02-01 20:36] LABS: Alanine Aminotransferase 15 U/L (0-40); Albumin Level 4.3 g/dL (3.5-5.0); Alkaline Phosphatase 81 U/L (39-117); Anion Gap 14 (12-20); Aspartate Amino Transferase 22 U/L (5-37); Bilirubin Total 0.6 mg/dL (0.0-1.0); Blood Urea Nitrogen 28 mg/dL (9-16); Calcium 9.5 mg/dL (8.4-10.2); Carbon Dioxide 24 mmol/L (22-29); Chloride 107 mmol/L (96-108); Creatinine Clr Calc Pharmacy 33.1; Estimated Glomerular Filt Rate 39; Glucose Random 104 mg/dL (60-115); Sodium 141 mmol/L (135-145); Total Protein 7.5 g/dL (6.5-8.0)
--- NOTE | 2024-02-01 22:07 | ED_ITS ---
HPI - Back Pain/Injury General Chief Complaint: Back Pain/Injury Stated Complaint: R HIP PAIN X 2WEEKS Time Seen by Provider: 02/01/24 22:01 Source: patient Mode of arrival: ambulatory Limitations: no limitations History of Present Illness HPI Narrative: Patient chronic low back problems diabetic comes here for increased pain lower back for last few days had accident 2 years ago and since then off and on he has pain no leg weakness no bladder or bowel involvement no recent injury complaining of pain all over the body no cold symptoms Related Data Home Medications Medication Instructions Recorded Confirmed aspirin 81 mg tablet,delayed 81 mg PO BEDTIME 09/01/20 04/18/21 release atorvastatin 20 mg tablet 20 mg PO DAILY 09/01/20 04/18/21 chlorthalidone 25 mg tablet 25 mg PO DAILY 09/01/20 04/18/21 gabapentin 100 mg capsule 200 mg PO BID 09/01/20 04/18/21 losartan 50 mg tablet 50 mg PO DAILY 09/01/20 04/18/21 melatonin 5 mg tablet mg PO 09/01/20 04/18/21 metformin 500 mg tablet,extended 500 mg PO BID 09/01/20 04/18/21 release 24 hr mirtazapine 30 mg tablet 30 mg PO BEDTIME 09/01/20 04/18/21 multivitamin-ferrous tab PO 09/01/20 04/18/21 fumarate-folic acid 18 mg-400 mcg tablet naproxen 500 mg tablet 500 mg PO BID 09/01/20 04/18/21 nicotine 14 mg/24 hr daily 0 patch topical 09/01/20 04/18/21 transdermal patch omega-3 fatty acids-fish oil 340 1 cap PO BID 09/01/20 04/18/21 mg-1,000 mg capsule flu vacc (65yr ml IM 12/19/20 04/18/21 up)-MF59C(PF) 60 mcg(15 mcgx4)/0.5 mL IM syringe Previous Rx's Medication Instructions Recorded levofloxacin 250 mg tablet 250 mg PO DAILY 7 days #7 tabs 09/29/20 ondansetron 4 mg disintegrating 4 mg PO Q8H PRN nausea and 09/29/20 tablet vomiting #20 tabs sennosides 8.6 mg tablet (senna) 8.6 mg PO BEDTIME PRN constipation 09/29/20 #30 tabs lidocaine HCl 4 % topical cream 1 appl topical BID PRN pain 30 01/09/21 (Aspercreme (lidocaine HCl)) days #120 grams tramadol 50 mg tablet 50 mg PO BEDTIME #5 tabs 01/10/21 bisacodyl 5 mg tablet,delayed 10 mg (2 x 5 mg) PO ONCE 04/18/21 release (Dulcolax (bisacodyl)) colonoscopy prep 1 day #2 tabs polyethylene glycol 3350 17 238 g PO ONCE 1 day #238 grams 04/18/21 gram/dose oral powder (Miralax) acetaminophen 500 mg tablet 500 mg PO Q6H PRN pain or fever 09/07/21 (Tylenol Extra Strength) #20 tabs cyclobenzaprine 5 mg tablet 5 mg PO Q8H PRN pain (scale score 09/07/21 7-10) 5 days #14 tabs lidocaine 5 % topical patch 1 patch topical DAILY PRN pain #30 09/07/21 (Lidoderm) ea naproxen 500 mg tablet 500 mg PO BID PRN pain 10 days #20 09/07/21 tabs acetaminophen 500 mg tablet 500 mg PO Q6H PRN pain or fever 10/01/21 (Tylenol Extra Strength) #20 tabs lidocaine 5 % topical patch 1 patch topical DAILY PRN pain #30 10/01/21 (Lidoderm) ea omeprazole 20 mg capsule,delayed 20 mg PO DAILY 90 days #90 caps 10/19/21 release glucagon 1 mg solution for 1 mg subcut Q20M PRN hypoglycemia 10/29/22 injection (Glucagon Emergency Kit) #1 ea tramadol 50 mg tablet 50 mg PO Q6-8H PRN pain #20 tabs 02/02/24 Allergies Allergy/AdvReac Type Severity Reaction Status Date / Time No Known Allergies Allergy Verified 02/01/24 20:02 Review of Systems 2 Review of Systems: Yes all other systems are reviewed and are negative PMFSH Past Medical History Medical History HTN (hypertension) Diabetes Appendicitis Cocaine abuse Alcohol abuse Kidney disease Diabetes 1.5, managed as type 1 Family History Family History Father No problems noted. Mother Diabetes Pancreas (digestive gland) works poorly Social History Social History Household Members: None Alcohol intake: unknown Patient Tobacco Use Status: Current someday Tobacco user Cigarettes Per Day: 2 Smoked in Last 30 Days: Yes e-Cigarette/Vaping Use: Never Used Second Hand Smoke Exposure: No Use of substances other than those prescribed or required for medical reasons: No Advance Directives: No Advance Directives Information Provided: No service: No Current occupational status: disabled Physical Exam 2 Vital Signs: Vital Signs: Last Vital Signs Temp 97.9 F 02/01/24 19:57 Pulse 68 02/01/24 22:43 Resp 15 02/01/24 22:43 BP 131/59 L 02/01/24 22:43 Pulse Ox 98 02/01/24 22:43 O2 Del Method Room Air 02/01/24 22:43 BMI result Body Mass Index 25.3 Appearance: Alert. Oriented X3. No acute distress. etoh++ Eyes: PERRLA, No Nystagmus ENT: Pharynx normal. Oral Mucosa moist Neck: Normal inspection. Neck supple. CVS: Normal heart rate and rhythm. Pulses normal. Respiratory: No respiratory distress. Equal air entry bilateral, no wheezing/rales/rhonchi Abdomen: Soft and nontender. Bowel sounds are present, no mass palpable, no CVA tenderness Skin: Skin warm and dry. Normal skin color. Normal skin turgor. back: Diffuse tenderness no focal spinal tenderness Extremities: No lower extremity edema. No calf tenderness Neuro: Oriented X 3. No motor deficit. 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 Will advised to continue gabapentin tizanidine will give short course of tramadol for acute pain patient's alcohol level is also positive last him to stop drinking as it could cause worsening of the pain Differential Diagnosis Differential Diagnoses: The differential diagnosis associated with the presentation includes Lab Data [facility] Lab Attestation statement: I reviewed the patient's lab results. 02/01/24 20:13 02/01/24 20:13 Labs: Lab Results 02/01/24 Range/Units 20:13 WBC 6.8 (4.8-10.8) X10*3/uL RBC 4.10 L (4.60-5.80) X10*6/uL Hgb 12.8 L (14.0-18.0) g/dl Hct 38.2 L (42.0-52.0) % MCV 93.2 (80.0-98.0) fL MCH 31.2 (27.0-33.0) pg MCHC 33.5 (31.0-36.0) g/dl RDW 12.6 (11.0-16.0) % Plt Count 198 (160-400) X10*3/uL MPV 10.1 (9.4-12.4) fL Immature Gran % (Auto) 0.3 (0.0-0.4) % Neut % (Auto) 59.4 (45-73) % Lymph % (Auto) 29.4 (20-40) % [place] % (Auto) 8.7 (2-11) % Eos % (Auto) 2.1 (0-4) % Baso % (Auto) 0.1 (0-2) % Lymph # (Auto) 2.0 (1.2-4.9) X10*3/uL [place] # (Auto) 0.6 (0.1-1.2) X10*3/uL Eos # (Auto) 0.1 (0.0-0.4) X10*3/uL Baso # (Auto) 0.0 (0.0-0.2) X10*3/uL Abs Immat Gran (auto) 0.02 (0.00-0.03) X10*3/uL Absolute Neuts (auto) 4.0 (2.0-8.3) x10*3/uL Absolute Nucleated RBC 0.000 (0.0-0.012) X10*3/uL Nucleated RBC % (auto) 0.0 (0.0-0.2) /100WBC Sodium 141 (135-145) mmol/L Potassium 4.0 (3.3-5.1) mmol/L Chloride 107 (96-108) mmol/L Carbon Dioxide 24 (22-29) mmol/L Anion Gap 14 (12-20) BUN 28 H (9-16) mg/dL Creatinine 1.71 H (0.5-1.4) mg/dL Estim Creat Clear Calc 33.1 Estimated GFR 39 Random Glucose 104 (60-115) mg/dL Calcium 9.5 (8.4-10.2) mg/dL Magnesium 1.8 (1.6-2.6) mg/dL Total Bilirubin 0.6 (0.0-1.0) mg/dL AST 22 (5-37) U/L ALT 15 (0-40) U/L Alkaline Phosphatase 81 (39-117) U/L Total Protein 7.5 (6.5-8.0) g/dL Albumin 4.3 (3.5-5.0) g/dL Ethyl Alcohol 135 mg/dL Discharge Plan Discharge Clinical Impression: Chronic pain of right lower extremity, Chronic neuropathic pain Patient Disposition: Home, Self-Care Instructions: Chronic Pain (ED) Additional Instructions: Continue your gabapentin and tizanidine for your chronic pain Tramadol for acute exacerbation of pain Follow with PCP Prescriptions: New tramadol 50 mg tablet 50 mg PO Q6-8H PRN (Reason: pain) Qty: 20 0RF No Action omeprazole 20 mg capsule,delayed release(DR/EC) 20 mg PO DAILY 90 Days Qty: 90 2RF tramadol 50 mg tablet 50 mg PO BEDTIME Qty: 5 0RF ondansetron 4 mg tablet,disintegrating 4 mg PO Q8H PRN (Reason: nausea and vomiting) Qty: 20 0RF levofloxacin 250 mg tablet 250 mg PO DAILY 7 Days Qty: 7 0RF sennosides [senna] 8.6 mg tablet 8.6 mg PO BEDTIME PRN (Reason: constipation) Qty: 30 0RF acetaminophen [Tylenol Extra Strength] 500 mg tablet 500 mg PO Q6H PRN (Reason: pain or fever) Qty: 20 0RF lidocaine [Lidoderm] 5 % adhesive patch,medicated 1 patch topical DAILY MDD remove after 12 hours PRN (Reason: pain) Qty: 30 0RF Rx Instructions: leave on most painful area for up to 12 hrs naproxen 500 mg tablet 500 mg PO BID PRN (Reason: pain) 10 Days Qty: 20 0RF cyclobenzaprine 5 mg tablet 5 mg PO Q8H PRN (Reason: pain (scale score 7-10)) 5 Days Qty: 14 0RF Glucagon Emergency Kit (human) 1 mg recon soln 1 mg subcut Q20M PRN (Reason: hypoglycemia) Qty: 1 1RF Rx Instructions: until target blood sugar attained acetaminophen [Tylenol Extra Strength] 500 mg tablet 500 mg PO Q6H PRN (Reason: pain or fever) Qty: 20 0RF lidocaine [Lidoderm] 5 % adhesive patch,medicated 1 patch topical DAILY MDD remove after 12 hours PRN (Reason: pain) Qty: 30 0RF Rx Instructions: leave on most painful area for up to 12 hrs metformin 500 mg tablet extended release 24 hr 500 mg PO BID Cerovite Advanced Formula 18-400 mg-mcg tablet PO melatonin 5 mg tablet PO aspirin 81 mg tablet,delayed release (DR/EC) 81 mg PO BEDTIME atorvastatin 20 mg tablet 20 mg PO DAILY losartan 50 mg tablet 50 mg PO DAILY Fish Oil 340-1,000 mg capsule 1 cap PO BID gabapentin 100 mg capsule 200 mg PO BID nicotine 14 mg/24 hr patch 24 hour 0 patch topical naproxen 500 mg tablet 500 mg PO BID mirtazapine 30 mg tablet 30 mg PO BEDTIME chlorthalidone 25 mg tablet 25 mg PO DAILY lidocaine HCl [Aspercreme (lidocaine HCl)] 4 % cream 1 appl topical BID PRN (Reason: pain) 30 Days Qty: 120 3RF Fluad Quad 2020-21(65y up)(PF) 60 mcg (15 mcg x 4)/0.5 mL syringe IM polyethylene glycol 3350 [Miralax] 17 gram/dose powder 238 g PO ONCE 1 Days Qty: 238 0RF Rx Instructions: Take as directed by mouth the day before your procedure. bisacodyl [Dulcolax (bisacodyl)] 5 mg tablet,delayed release (DR/EC) 10 mg PO ONCE 1 Days Qty: 2 0RF Rx Instructions: Take 2 tablets by mouth at 12:00pm the day before your procedure.
[2024-02-01 22:43] VITALS: BP 131/59; PULSE 68; RESP 15; O2SAT 98
[2024-02-01 23:05] LABS: Ethanol 135 mg/dL; Magnesium 1.8 mg/dL (1.6-2.6)
--- NOTE | 2024-02-01 23:14 | PC.NURSE ---
assumed care of pt. pt resting in stretcher, no acute distress noted. no new orders at this time.
[2024-02-02] MEDS: traMADoL HCL 50 MG TABLET PO (00:50)
[2024-02-02 00:53] VITALS: BP 144/82; PULSE 67; RESP 18; TEMP 36.6; O2SAT 98
== END 2024-02-02 00:55 | disposition home or self-care (01) ==
PROVIDERS: Emergency Provider Internal Medicine
DX: E13.40 Other specified diabetes mellitus with diabetic neuropathy, unspecified (principal); G89.29 Other chronic pain; M79.605 Pain in left leg; M79.604 Pain in right leg; M54.50 Low back pain, unspecified; I10 Essential (primary) hypertension; Z79.84 Long term (current) use of oral hypoglycemic drugs; Z79.899 Other long term (current) drug therapy
CPT/HCPCS: 36415; 80053; 80307; 83735; 85025; 99283; 99284

== ENCOUNTER 2024-03-02 10:22 | Emergency (ER) | payer OTHER, SELFPAY ==
[2024-03-02 10:28] VITALS: BP 123/72; PULSE 78; RESP 18; TEMP 36.2; O2SAT 99; BMI 20.9
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
[2024-03-02 12:59] VITALS: BP 119/70; PULSE 73; RESP 16; TEMP 36.2; O2SAT 97
== END 2024-03-02 12:59 | disposition home or self-care (01) ==
PROVIDERS: Emergency Provider Emergency Medicine
DX: M79.10 Myalgia, unspecified site (principal); E11.9 Type 2 diabetes mellitus without complications; I10 Essential (primary) hypertension
CPT/HCPCS: 99282; 99283

== ENCOUNTER 2024-04-24 10:25 | Emergency (ER) | payer OTHER, SELFPAY ==
[2024-04-24 11:01] VITALS: BP 118/71; PULSE 67; RESP 18; TEMP 36.2; O2SAT 99; BMI 20.2
[2024-04-24 11:45] LABS: MANUAL DIFF FLAG NO
[2024-04-24 11:54] LABS: Basophils Percent Auto 0.4 % (0-2); Eosinophils Absolute Auto 0.1 X10*3/uL (0.0-0.4); Eosinophils Percent Auto 1.5 % (0-4); Hemoglobin 12.1 g/dl (14.0-18.0); Imm Gran Abs Auto 0.05 X10*3/uL (0.00-0.03); Imm Gran Pct Auto 0.5 % (0.0-0.4); Lymphocytes Absolute Auto 2.2 X10*3/uL (1.2-4.9); Lymphocytes Percent Auto 22.8 % (20-40); Mean Corpuscular HGB Conc 32.7 g/dl (31.0-36.0); Mean Corpuscular Hemoglobin 31.8 pg (27.0-33.0); Mean Corpuscular Volume 97.1 fL (80.0-98.0); Mean Platelet Volume 10.2 fL (9.4-12.4); Monocytes Absolute Auto 0.8 X10*3/uL (0.1-1.2); Monocytes Percent Auto 7.9 % (2-11); Neutrophils Absolute Auto 6.4 x10*3/uL (2.0-8.3); Neutrophils Percent Auto 66.9 % (45-73); Platelet Count 241 X10*3/uL (160-400); Red Blood Count 3.81 X10*6/uL (4.60-5.80); White Blood Count 9.6 X10*3/uL (4.8-10.8)
[2024-04-24 12:03] LABS: Alanine Aminotransferase 30 U/L (0-40); Albumin Level 3.9 g/dL (3.5-5.0); Alkaline Phosphatase 73 U/L (39-117); Anion Gap 12 (12-20); Aspartate Amino Transferase 42 U/L (5-37); Bilirubin Total 0.5 mg/dL (0.0-1.0); Blood Urea Nitrogen 41 mg/dL (9-16); Calcium 9.4 mg/dL (8.4-10.2); Carbon Dioxide 26 mmol/L (22-29); Chloride 106 mmol/L (96-108); Creatinine Clr Calc Pharmacy 25.3; Estimated Glomerular Filt Rate 28; Glucose Random 170 mg/dL (60-115); Potassium 3.8 mmol/L (3.3-5.1); Sodium 140 mmol/L (135-145); Total Protein 6.7 g/dL (6.5-8.0)
== END 2024-04-24 16:36 | disposition left against medical advice (07) ==
PROVIDERS: Emergency Provider Emergency Medicine
DX: M79.676 Pain in unspecified toe(s) (principal); Z79.899 Other long term (current) drug therapy
CPT/HCPCS: 36415; 80053; 85025; 99281; 99283

== ENCOUNTER 2024-06-12 10:30 | Outpatient (REF) | payer OTHER, SELFPAY ==
[2024-06-12 12:09] LABS: Anion Gap 13 (12-20); Blood Urea Nitrogen 16 mg/dL (9-16); Calcium 9.4 mg/dL (8.4-10.2); Carbon Dioxide 24 mmol/L (22-29); Chloride 109 mmol/L (96-108); Cholesterol 93 mg/dL (<200); Estimated Glomerular Filt Rate 60; Glucose Random 90 mg/dL (60-115); HDL Cholesterol 35 mg/dL (>40); LDL Cholesterol Calculated 28 mg/dL (<100); Potassium 4.2 mmol/L (3.3-5.1); Sodium 142 mmol/L (135-145); Triglycerides 150 mg/dL (<150)
[2024-06-12 12:20] LABS: Creatinine Urine 57.66 mg/dL; Microalbum/Creatinine Ratio Ur 60.7 ug/mg cr (<30)
== END 2024-06-12 10:31 | disposition home or self-care (01) ==
LOC: HO.HHCL 10:30
PROVIDERS: Registered Nurse; Visit Provider Registered Nurse
DX: E11.22 Type 2 diabetes mellitus with diabetic chronic kidney disease (principal); N18.30 Chronic kidney disease, stage 3 unspecified; N18.31 Chronic kidney disease, stage 3a
CPT/HCPCS: 36415; 80048; 80061; 82043; 82570

== ENCOUNTER 2024-07-03 11:17 | Outpatient (REF) | payer OTHER, SELFPAY ==
--- NOTE | ~2024-07-03 | XR_ITS ---
EXAMINATION: XR HIP, RIGHT CLINICAL INFORMATION: Right hip pain. COMPARISON: Right hip radiographs dated 09/17/2022. TECHNIQUE: Two views of the right hip. FINDINGS: Mild right hip joint space narrowing with small marginal osteophytes, not significantly changed. No acute fracture or dislocation. No concerning lytic or blastic osseous lesion. No evidence of femoral head avascular necrosis. XR/XR hip RT min 2V IMPRESSION: Mild right hip osteoarthritis, unchanged.
--- NOTE | ~2024-07-03 | XR_ITS ---
EXAMINATION: XR LUMBOSACRAL SPINE WITH OBLIQUES CLINICAL INFORMATION: Lower back pain and right leg pain and weakness. COMPARISON: CT abdomen/pelvis dated 09/29/2020. TECHNIQUE: AP, lateral, coned-down, and bilateral oblique views of the lumbosacral spine. FINDINGS: Normal vertebral body alignment. The lumbar lordosis is maintained. No acute fracture or subluxation. No loss of vertebral body height. Mild multilevel loss of intervertebral disc height with endplate osteophytes, most prominent at L5-S1. Bilateral facet arthropathy at L5-S1. No concerning lytic or blastic osseous lesion. Atherosclerotic calcifications. XR/XR lumbar spine 4V min IMPRESSION: Multilevel degenerative disc disease, most prominent at L5-S1 where there is bilateral facet arthropathy.
== END 2024-07-03 11:18 | disposition home or self-care (01) ==
LOC: HO.HHCX 11:17
PROVIDERS: Visit Provider Registered Nurse
DX: M54.50 Low back pain, unspecified (principal); G89.29 Other chronic pain; M25.551 Pain in right hip; M79.604 Pain in right leg
CPT/HCPCS: 72110; 73502

== ENCOUNTER 2024-08-25 09:42 | Emergency (ER) | payer OTHER, SELFPAY ==
--- NOTE | 2024-08-25 09:53 | ED_ITS ---
HPI - Chest Pain General Stated Complaint: CP LAST NOC,PAIN FREE,FROM WALK IN PER EMS Source: patient, EMS and old records reviewed Mode of arrival: EMS Limitations: no limitations History of Present Illness ED Provider: DAKOTA HIGGINS narrative: 79 yo male with PMH of GERD, PVCs, DM, anxiety, HLD, HTN who presented to walk in clinic with chest pain - they called 911. EMS notes no STEMI on EKG, started IV and gave aspirin. On arrival the patient states he is fine and he doesn't want anything done. He has no pain now and refuses further workup and care. RN and tech/myself tried to speak with him in [place]an and Uzbek but he refuses. He got up demanded his IV be removed. He was dressed. I had to stop him in the hallway to talk to him just to get some brief history. MD complaint: chest pain Onset (ago): unknown Timing of current episode: now resolved Prior episodes: No Onset: other (during sleep) Pain location: left chest Pain radiation: none Severity: mild Relieving factors: nothing Exacerbating factors: nothing Treatment prior to arrival: aspirin Related Data Home Medications ?Medication ?Instructions ?Recorded ?Confirmed aspirin 81 mg tablet,delayed 81 mg PO BEDTIME 09/01/20 04/18/21 release atorvastatin 20 mg tablet 20 mg PO DAILY 09/01/20 04/18/21 chlorthalidone 25 mg tablet 25 mg PO DAILY 09/01/20 04/18/21 gabapentin 100 mg capsule 200 mg PO BID 09/01/20 04/18/21 losartan 50 mg tablet 50 mg PO DAILY 09/01/20 04/18/21 melatonin 5 mg tablet mg PO 09/01/20 04/18/21 metformin 500 mg tablet,extended 500 mg PO BID 09/01/20 04/18/21 release 24 hr mirtazapine 30 mg tablet 30 mg PO BEDTIME 09/01/20 04/18/21 multivitamin-ferrous tab PO 09/01/20 04/18/21 fumarate-folic acid 18 mg-400 mcg tablet naproxen 500 mg tablet 500 mg PO BID 09/01/20 04/18/21 nicotine 14 mg/24 hr daily 0 patch topical 09/01/20 04/18/21 transdermal patch omega-3 fatty acids-fish oil 340 1 cap PO BID 10/15/20 06/01/21 mg-1,000 mg capsule flu vacc 2019-(65yr ml IM 12/19/20 04/18/21 up)-MF59C(PF) 60 mcg(15 mcgx4)/0.5 mL IM syringe Previous Rx's ?Medication ?Instructions ?Recorded levofloxacin 250 mg tablet 250 mg PO DAILY 7 days #7 tabs 09/29/20 ondansetron 4 mg disintegrating 4 mg PO Q8H PRN nausea and 09/29/20 tablet vomiting #20 tabs sennosides 8.6 mg tablet (senna) 8.6 mg PO BEDTIME PRN constipation 09/29/20 #30 tabs lidocaine HCl 4 % topical cream 1 appl topical BID PRN pain 30 01/09/21 (Aspercreme (lidocaine HCl)) days #120 grams tramadol 50 mg tablet 50 mg PO BEDTIME #5 tabs 01/10/21 bisacodyl 5 mg tablet,delayed 10 mg (2 x 5 mg) PO ONCE 04/18/21 release (Dulcolax (bisacodyl)) colonoscopy prep 1 day #2 tabs polyethylene glycol 3350 17 238 g PO ONCE 1 day #238 grams 04/18/21 gram/dose oral powder (Miralax) acetaminophen 500 mg tablet 500 mg PO Q6H PRN pain or fever 09/07/21 (Tylenol Extra Strength) #20 tabs cyclobenzaprine 5 mg tablet 5 mg PO Q8H PRN pain (scale score 09/07/21 7-10) 5 days #14 tabs lidocaine 5 % topical patch 1 patch topical DAILY PRN pain #30 09/07/21 (Lidoderm) ea naproxen 500 mg tablet 500 mg PO BID PRN pain 10 days #20 09/07/21 tabs acetaminophen 500 mg tablet 500 mg PO Q6H PRN pain or fever 10/01/21 (Tylenol Extra Strength) #20 tabs lidocaine 5 % topical patch 1 patch topical DAILY PRN pain #30 10/01/21 (Lidoderm) ea omeprazole 20 mg capsule,delayed 20 mg PO DAILY 90 days #90 caps 10/19/21 release glucagon 1 mg solution for 1 mg subcut Q20M PRN hypoglycemia 10/29/22 injection (Glucagon Emergency Kit) #1 ea tramadol 50 mg tablet 50 mg PO Q6-8H PRN pain #20 tabs 02/02/24 acetaminophen 500 mg tablet 500 mg PO Q6H PRN pain #30 tabs 03/02/24 (Tylenol Extra Strength) Allergies Allergy/AdvReac Type Severity Reaction Status Date / Time No Known Allergies Allergy Verified 04/24/24 11:03 Review of Systems Review of Systems: ROS unable to be obtained due to patient stating he is leaving [facility] Past Medical History Attestation statement: The following information was validated with the patient. Source: old records reviewed Medical History HTN (hypertension) Diabetes Appendicitis Cocaine abuse Alcohol abuse Kidney disease Diabetes 1.5, managed as type 1 Family History Family History Father No problems noted. Mother Diabetes Pancreas (digestive gland) works poorly Social History Social History Household Members: None Alcohol intake: unknown Patient Tobacco Use Status: Current someday Tobacco user Cigarettes Per Day: 2 e-Cigarette/Vaping Use: Never Used Second Hand Smoke Exposure: No service: No Current occupational status: disabled Physical Exam Vital Signs: Appearance: Alert. Oriented X3. No acute distress. Eyes: Pupils equal, round and reactive to light. ENT: Pharynx normal. Neck: Normal inspection. Neck supple. CVS: Pulses normal. Respiratory: No respiratory distress. Abdomen: atraumatic Skin: Skin warm and dry. Normal skin color. Extremities: No lower extremity edema. Neuro: Oriented X 3. No motor deficit. No sensory deficit. Medical Decision Making Medical Decision Making MDM Narrative: 79 yo male with PMH of GERD, PVCs, DM, anxiety, HLD, HTN who presents with c/o chest pain to EMS after presenting to urgent care - he now notes he has nothing wrong with him and is going to leave AMA. I tried to get him to stay he actually got up and was walking out and I was able to stop him and RN removed his line. He is alert and oriented he is aware I cannot tell if there is a life threatening issue with his chest and he states he is fine and is going to leave. He is alert and oriented x 3. He is going to leave AMA Differential Diagnosis Differential Diagnoses: The differential diagnosis associated with the presentation includes ACS, VTE, coronary vasospasm, dissection, atypical chest pain Admission/Observation Consideration of admission/observation: Escalation of care including admission/observation considered patient leaving AMA Independent Historian Clinical information obtained from an independent historian. History obtained from or confirmed by: EMS External Record Review External record reviewed: Office record Tests considered The following testing was considered but not selected: EKG, labs, CXR further imaging as warranted Discharge Plan Discharge Clinical Impression: Chest pain Patient Disposition: Left Against Medical Advice Instructions: Chest Pain (ED), Against Medical Advice (ED) Additional Instructions: you refused blood work, electrocardiogram and xray. we cannot determine what is causing your pain return at any time this could cause you significant harm or Prescriptions: No Action omeprazole 20 mg capsule,delayed release(DR/EC) 20 mg PO DAILY 90 Days Qty: 90 2RF tramadol 50 mg tablet 50 mg PO BEDTIME Qty: 5 0RF ondansetron 4 mg tablet,disintegrating 4 mg PO Q8H PRN (Reason: nausea and vomiting) Qty: 20 0RF levofloxacin 250 mg tablet 250 mg PO DAILY 7 Days Qty: 7 0RF sennosides [senna] 8.6 mg tablet 8.6 mg PO BEDTIME PRN (Reason: constipation) Qty: 30 0RF acetaminophen [Tylenol Extra Strength] 500 mg tablet 500 mg PO Q6H PRN (Reason: pain or fever) Qty: 20 0RF lidocaine [Lidoderm] 5 % adhesive patch,medicated 1 patch topical DAILY MDD remove after 12 hours PRN (Reason: pain) Qty: 30 0RF Rx Instructions: leave on most painful area for up to 12 hrs naproxen 500 mg tablet 500 mg PO BID PRN (Reason: pain) 10 Days Qty: 20 0RF cyclobenzaprine 5 mg tablet 5 mg PO Q8H PRN (Reason: pain (scale score 7-10)) 5 Days Qty: 14 0RF Glucagon Emergency Kit (human) 1 mg recon soln 1 mg subcut Q20M PRN (Reason: hypoglycemia) Qty: 1 1RF Rx Instructions: until target blood sugar attained acetaminophen [Tylenol Extra Strength] 500 mg tablet 500 mg PO Q6H PRN (Reason: pain or fever) Qty: 20 0RF lidocaine [Lidoderm] 5 % adhesive patch,medicated 1 patch topical DAILY MDD remove after 12 hours PRN (Reason: pain) Qty: 30 0RF Rx Instructions: leave on most painful area for up to 12 hrs tramadol 50 mg tablet 50 mg PO Q6-8H PRN (Reason: pain) Qty: 20 0RF acetaminophen [Tylenol Extra Strength] 500 mg tablet 500 mg PO Q6H PRN (Reason: pain) Qty: 30 0RF metformin 500 mg tablet extended release 24 hr 500 mg PO BID Cerovite Advanced Formula 18-400 mg-mcg tablet PO melatonin 5 mg tablet PO aspirin 81 mg tablet,delayed release (DR/EC) 81 mg PO BEDTIME atorvastatin 20 mg tablet 20 mg PO DAILY losartan 50 mg tablet 50 mg PO DAILY Fish Oil 340-1,000 mg capsule 1 cap PO BID gabapentin 100 mg capsule 200 mg PO BID nicotine 14 mg/24 hr patch 24 hour 0 patch topical naproxen 500 mg tablet 500 mg PO BID mirtazapine 30 mg tablet 30 mg PO BEDTIME chlorthalidone 25 mg tablet 25 mg PO DAILY lidocaine HCl [Aspercreme (lidocaine HCl)] 4 % cream 1 appl topical BID PRN (Reason: pain) 30 Days Qty: 120 3RF Fluad Quad 2020-21(65y up)(PF) 60 mcg (15 mcg x 4)/0.5 mL syringe IM polyethylene glycol 3350 [Miralax] 17 gram/dose powder 238 g PO ONCE 1 Days Qty: 238 0RF Rx Instructions: Take as directed by mouth the day before your procedure. bisacodyl [Dulcolax (bisacodyl)] 5 mg tablet,delayed release (DR/EC) 10 mg PO ONCE 1 Days Qty: 2 0RF Rx Instructions: Take 2 tablets by mouth at 12:00pm the day before your procedure. Print Language: Uzbek
[2024-08-25 10:04] VITALS: BP 164/81; PULSE 60; O2SAT 99
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
[2024-08-25 10:07] VITALS: BP 00/00; PULSE 0; RESP 0; TEMP -17.7; TEMP 0; O2SAT 0
== END 2024-08-25 10:09 | disposition left against medical advice (07) ==
PROVIDERS: Emergency Provider Emergency Medicine
DX: R07.89 Other chest pain (principal); I10 Essential (primary) hypertension; Z79.899 Other long term (current) drug therapy; F17.210 Nicotine dependence, cigarettes, uncomplicated

== ENCOUNTER 2024-08-26 08:35 | Emergency (ER) | payer OTHER, SELFPAY ==
--- NOTE | 2024-08-26 | ECG_ITS ---
Test Reason : CP Blood Pressure : / mmHG Vent. Rate : 065 BPM Atrial Rate : 065 BPM P-R Int : 142 ms QRS Dur : 078 ms QT Int : 416 ms P-R-T Axes : 014 -18 053 degrees QTc Int : 432 ms Sinus rhythm with frequent Premature ventricular complexes Otherwise normal ECG When compared with ECG of 14-DEC-2022 12:55, Premature ventricular complexes are now Present Referred By: Generic ED Physician Electronically Signed By:JAN PERERA MD
--- NOTE | ~2024-08-26 | XR_ITS ---
EXAMINATION: XR CHEST 9:28 AM CLINICAL INFORMATION: Pain COMPARISON: 09/03/2023 TECHNIQUE: Frontal view of the chest was obtained. FINDINGS: No significant abnormality is noted involving the heart, lungs, mediastinum, bony thorax or soft tissues. XR/XR chest 1V IMPRESSION: Unremarkable examination. Electronically signed by: Maldonado Simpson MD 08/26/2024 09:51 AM EDT RP
--- NOTE | ~2024-08-26 | CT_ITS ---
EXAMINATION: CT HEAD WITHOUT CONTRAST CLINICAL INFORMATION: Memory changes COMPARISON: CT 09/07/2021 TECHNIQUE: Contiguous axial imaging was performed from the skull base to vertex without intravenous administration of contrast. This CT examination was performed using dose optimization techniques as appropriate, variously including the following: *Automated exposure control *Adjustment of mA and/or kV according to patient size (this includes techniques or standardized protocols for targeted exams where dose is matched to indication/reason for exam; i.e. extremities or head) *Use of iterative reconstruction technique DLP: 1133mGy-cm FINDINGS: There is no evidence of acute intracranial hemorrhage or edematous large vessel territorial infarction. No abnormal mass effect or midline shift is seen. Walker to white matter differentiation is well preserved. No abnormal extra-axial fluid collections are identified. Commensurate prominence of the ventricles and sulci is compatible with generalized parenchymal volume loss. There is patchy periventricular and subcortical white matter hypoattenuation, most likely representing microangiopathic disease. No acute calvarial fracture.. Paranasal sinuses and mastoid air cells are well-aerated. CT/CT head/brain wo IV con IMPRESSION: No CT evidence of acute intracranial hemorrhage or edematous territorial infarction.. Chronic changes of cerebral volume loss and chronic microangiopathic changes as detailed above. Electronically signed by: Edi Cisneros MD 08/26/2024 12:55 PM EDT
[2024-08-26 08:39] VITALS: BP 145/71; PULSE 63; O2SAT 100
--- NOTE | 2024-08-26 08:39 | ED_ITS ---
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 States he thinks he passed out but is not clear has intermittent L sided chest pain and mild dyspnea. No recent travel or procedures. No URI symptoms. He also notes several months of memory issues and he states he lives alone. MD complaint: chest pain Onset (ago): day(s) (2) Timing of current episode: episodic Prior episodes: Yes Onset: associated with drug use Pain location: left chest Pain radiation: none Severity: mild Quality: tightness Relieving factors: nothing Exacerbating factors: other Context: other Associated symptoms: dyspnea Treatment prior to arrival: other (refused EMS treatment) Related Data Home Medications ?Medication ?Instructions ?Recorded ?Confirmed aspirin 81 mg tablet,delayed 81 mg PO BEDTIME 09/01/20 04/18/21 release atorvastatin 20 mg tablet 20 mg PO DAILY 09/01/20 04/18/21 chlorthalidone 25 mg tablet 25 mg PO DAILY 09/01/20 04/18/21 gabapentin 100 mg capsule 200 mg PO BID 09/01/20 04/18/21 losartan 50 mg tablet 50 mg PO DAILY 09/01/20 04/18/21 melatonin 5 mg tablet mg PO 09/01/20 04/18/21 metformin 500 mg tablet,extended 500 mg PO BID 09/01/20 04/18/21 release 24 hr mirtazapine 30 mg tablet 30 mg PO BEDTIME 09/01/20 04/18/21 multivitamin-ferrous tab PO 09/01/20 04/18/21 fumarate-folic acid 18 mg-400 mcg tablet naproxen 500 mg tablet 500 mg PO BID 09/01/20 04/18/21 nicotine 14 mg/24 hr daily 0 patch topical 09/01/20 04/18/21 transdermal patch omega-3 fatty acids-fish oil 340 1 cap PO BID 09/01/20 04/18/21 mg-1,000 mg capsule flu vacc 2019-(65yr ml IM 12/19/20 04/18/21 up)-MF59C(PF) 60 mcg(15 mcgx4)/0.5 mL IM syringe Previous Rx's ?Medication ?Instructions ?Recorded levofloxacin 250 mg tablet 250 mg PO DAILY 7 days #7 tabs 09/29/20 ondansetron 4 mg disintegrating 4 mg PO Q8H PRN nausea and 09/29/20 tablet vomiting #20 tabs sennosides 8.6 mg tablet (senna) 8.6 mg PO BEDTIME PRN constipation 09/29/20 #30 tabs lidocaine HCl 4 % topical cream 1 appl topical BID PRN pain 30 01/09/21 (Aspercreme (lidocaine HCl)) days #120 grams tramadol 50 mg tablet 50 mg PO BEDTIME #5 tabs 01/10/21 bisacodyl 5 mg tablet,delayed 10 mg (2 x 5 mg) PO ONCE 04/18/21 release (Dulcolax (bisacodyl)) colonoscopy prep 1 day #2 tabs polyethylene glycol 3350 17 238 g PO ONCE 1 day #238 grams 04/18/21 gram/dose oral powder (Miralax) acetaminophen 500 mg tablet 500 mg PO Q6H PRN pain or fever 09/07/21 (Tylenol Extra Strength) #20 tabs cyclobenzaprine 5 mg tablet 5 mg PO Q8H PRN pain (scale score 09/07/21 7-10) 5 days #14 tabs lidocaine 5 % topical patch 1 patch topical DAILY PRN pain #30 09/07/21 (Lidoderm) ea naproxen 500 mg tablet 500 mg PO BID PRN pain 10 days #20 09/07/21 tabs acetaminophen 500 mg tablet 500 mg PO Q6H PRN pain or fever 10/01/21 (Tylenol Extra Strength) #20 tabs lidocaine 5 % topical patch 1 patch topical DAILY PRN pain #30 10/01/21 (Lidoderm) ea omeprazole 20 mg capsule,delayed 20 mg PO DAILY 90 days #90 caps 10/19/21 release glucagon 1 mg solution for 1 mg subcut Q20M PRN hypoglycemia 10/29/22 injection (Glucagon Emergency Kit) #1 ea tramadol 50 mg tablet 50 mg PO Q6-8H PRN pain #20 tabs 02/02/24 acetaminophen 500 mg tablet 500 mg PO Q6H PRN pain #30 tabs 03/02/24 (Tylenol Extra Strength) Allergies Allergy/AdvReac Type Severity Reaction Status Date / Time No Known Allergies Allergy Verified 08/26/24 08:52 Review of Systems 2 Review of Systems: Constitutional : No Weight loss, No Fever, No Chills ENT/Mouth : No sore throat, No Rhinorrhea Eyes: No Eye Pain, No Swelling Cardiovascular : pos Chest Pain, pos SOB, no Dyspnea on Exertion, No Orthopnea, No Edema, No Palpitations Respiratory : No Cough, No Sputum Gastrointestinal : no Nausea, No Vomiting, No Diarrhea, No abdominal Pain, No Hematochezia, No Melena Genitourinary : No Dysuria, No Urinary Frequency Musculoskeletal : No joint pain, No Myalgias, No Joint Swelling Skin : No Skin Lesions, No rash Neuro : No Weakness, No Numbness, No Dizziness, No Headache Psych : pos Anxiety/Panic, No Depression All other systems reviewed and are negative [facility] Past Medical History Attestation statement: The following information was validated with the patient. Source: old records reviewed Medical History HTN (hypertension) Diabetes Appendicitis Cocaine abuse Alcohol abuse Kidney disease Diabetes 1.5, managed as type 1 Family History Family History Father No problems noted. Mother Diabetes Pancreas (digestive gland) works poorly Social History Social History Household Members: None Alcohol intake: unknown Patient Tobacco Use Status: Current someday Tobacco user Cigarettes Per Day: 2 Smoked in Last 30 Days: No e-Cigarette/Vaping Use: Never Used Second Hand Smoke Exposure: No Use of substances other than those prescribed or required for medical reasons: Yes Substance Use Type: Crack/Cocaine Advance Directives: No Advance Directives Information Provided: Yes Do you have a plan to hurt others: No Plan service: No Current occupational status: disabled Physical Exam 2 Vital Signs: Vital Signs: Last Vital Signs Temp 97.4 F 08/26/24 14:37 Pulse 76 08/26/24 14:37 Resp 22 H 08/26/24 14:37 BP 181/94 H 08/26/24 14:37 Pulse Ox 100 08/26/24 14:37 O2 Del Method Room Air 08/26/24 14:37 BMI result Body Mass Index 23.0 Appearance: Alert. Oriented X2. No acute distress. Smiling at times and has glassy eyes Eyes: Pupils equal, round and reactive to light. ENT: Pharynx normal. Neck: Normal inspection. Neck supple. CVS: Normal heart rate and rhythm. Pulses normal. Respiratory: No respiratory distress. Breath sounds normal. Abdomen: Soft and nontender. Skin: Skin warm and dry. Normal skin color. Normal skin turgor. Extremities: No lower extremity edema. No calf ttp Neuro: Oriented X 2. No motor deficit. No sensory deficit. Course Course Course Narrative: patient removed his ID band and is trying to walk out. Reevaluation(s) Reevaluation #1: called number listed on chart and it is not in service Reevaluation #2: daughter tarah noted memory issues [phone] about 1 month ago daughter has not seen him for 2 weeks, she has had medical issues such as hysterectomy. I explained he is not a safe discharge. She is very hard to understand. Daughter states he can stay with her. Daughter states a son and daughter can also care for him. Family states they are on their way to see him 106pm be here in 30 min and that they can care for him Reevaluation #3: CM to filed elder neglect/concerns Medical Decision Making Medical Decision Making MDM Narrative: 79 yo male with PMH of GERD, PVCs, DM, anxiety, HLD, HTN, cocaine abuse here with c/o chest pain and then possible syncope x 2 days ago he appears under the influence at this time will need basic labs, EKG, trop x 2. He denies travel or pleuritic chest pain no tachycardia and no hypoxia / signs of DVT to suggest VTE. He does not inject. Doubt VTE. He has no signs of head trauma. He also c/o memory issues - CT head to be ordered and possible PT/CM denies SI Differential Diagnosis Differential Diagnoses: The differential diagnosis associated with the presentation includes intoxication, coronary vasospasm, ACS, syncope, cognitive impairment Admission/Observation Consideration of admission/observation: Escalation of care including admission/observation considered trop negative x 2, negative work up at this time observation started at 1252pm pending safe discharge as he is not oriented Lab Data MDM Lab Attestation statement: I reviewed the patient's lab results. 08/26/24 08:59 08/26/24 08:59 Labs: Lab Results 08/26/24 08/26/24 08/26/24 Range/Units 08:59 11:05 12:28 WBC 6.2 (4.8-10.8) X10*3/uL RBC 3.91 L (4.60-5.80) X10*6/uL Hgb 12.2 L (14.0-18.0) g/dl Hct 37.1 L (42.0-52.0) % MCV 94.9 (80.0-98.0) fL MCH 31.2 (27.0-33.0) pg MCHC 32.9 (31.0-36.0) g/dl RDW 12.9 (11.0-16.0) % Plt Count 198 (160-400) X10*3/uL MPV 11.2 (9.4-12.4) fL Immature Gran % (Auto) 0.5 H (0.0-0.4) % Neut % (Auto) 58.4 (45-73) % Lymph % (Auto) 28.5 (20-40) % [place] % (Auto) 10.2 (2-11) % Eos % (Auto) 2.1 (0-4) % Baso % (Auto) 0.3 (0-2) % Lymph # (Auto) 1.8 (1.2-4.9) X10*3/uL [place] # (Auto) 0.6 (0.1-1.2) X10*3/uL Eos # (Auto) 0.1 (0.0-0.4) X10*3/uL Baso # (Auto) 0.0 (0.0-0.2) X10*3/uL Abs Immat Gran (auto) 0.03 (0.00-0.03) X10*3/uL Absolute Neuts (auto) 3.6 (2.0-8.3) x10*3/uL Absolute Nucleated RBC 0.000 (0.0-0.012) X10*3/uL Nucleated RBC % (auto) 0.0 (0.0-0.2) /100WBC Sodium 140 (135-145) mmol/L Potassium 4.1 (3.3-5.1) mmol/L Chloride 105 (96-108) mmol/L Carbon Dioxide 24 (22-29) mmol/L Anion Gap 15 (12-20) BUN 21 H (9-16) mg/dL Creatinine 1.68 H (0.5-1.4) mg/dL Estim Creat Clear Calc 38.9 Estimated GFR 40 Random Glucose 143 H (60-115) mg/dL Calcium 8.9 (8.4-10.2) mg/dL Magnesium 2.0 (1.6-2.6) mg/dL Total Bilirubin 0.5 (0.0-1.0) mg/dL Direct Bilirubin 0.2 (0.0-0.5) mg/dL AST 29 (5-37) U/L ALT 16 (0-40) U/L Alkaline Phosphatase 70 (39-117) U/L Ammonia (13-55) umol/L Total Creatine Kinase 172 (38-174) U/L Troponin I High Sens 3.7 4.5 (<3.5-35.0) ng/L Total Protein 6.6 (6.5-8.0) g/dL Albumin 3.8 (3.5-5.0) g/dL Urine Color Urine Appearance Urine pH (5.0-9.0) Ur Specific [place] (1.005-1.025) Urine Protein (Neg-Trace) mg/dL Urine Glucose (UA) (Negative) mg/dL Urine Ketones (Negative) mg/dL Urine Blood (Negative) Urine Nitrite (Negative) Ur Leukocyte Esterase (Negative) Urine Opiates Screen Not Detected (Not Detect) Ur Buprenorphine Scrn Not Detected (Not Detect) ng/mL Ur Oxycodone Screen Not Detected (Not Detect) ng/mL Urine Methadone Screen Not Detected (Not Detect) ng/mL Urine Fentanyl Screen Not Detected (Not Detect) Ur Barbiturates Screen Not Detected (Not Detect) Ur Phencyclidine Scrn Not Detected (Not Detect) Ur Amphetamines Screen Not Detected (Not Detect) U Benzodiazepines Scrn Not Detected (Not Detect) Urine Cocaine Screen POSITIVE H (Not Detect) U Marijuana (THC) Screen Not Detected (Not Detect) Ethyl Alcohol < 10 mg/dL 08/26/24 08/26/24 Range/Units 12:38 14:16 WBC (4.8-10.8) X10*3/uL RBC (4.60-5.80) X10*6/uL Hgb (14.0-18.0) g/dl Hct (42.0-52.0) % MCV (80.0-98.0) fL MCH (27.0-33.0) pg MCHC (31.0-36.0) g/dl RDW (11.0-16.0) % Plt Count (160-400) X10*3/uL MPV (9.4-12.4) fL Immature Gran % (Auto) (0.0-0.4) % Neut % (Auto) (45-73) % Lymph % (Auto) (20-40) % [place] % (Auto) (2-11) % Eos % (Auto) (0-4) % Baso % (Auto) (0-2) % Lymph # (Auto) (1.2-4.9) X10*3/uL [place] # (Auto) (0.1-1.2) X10*3/uL Eos # (Auto) (0.0-0.4) X10*3/uL Baso # (Auto) (0.0-0.2) X10*3/uL Abs Immat Gran (auto) (0.00-0.03) X10*3/uL Absolute Neuts (auto) (2.0-8.3) x10*3/uL Absolute Nucleated RBC (0.0-0.012) X10*3/uL Nucleated RBC % (auto) (0.0-0.2) /100WBC Sodium (135-145) mmol/L Potassium (3.3-5.1) mmol/L Chloride (96-108) mmol/L Carbon Dioxide (22-29) mmol/L Anion Gap (12-20) BUN (9-16) mg/dL Creatinine (0.5-1.4) mg/dL Estim Creat Clear Calc Estimated GFR Random Glucose (60-115) mg/dL Calcium (8.4-10.2) mg/dL Magnesium (1.6-2.6) mg/dL Total Bilirubin (0.0-1.0) mg/dL Direct Bilirubin (0.0-0.5) mg/dL AST (5-37) U/L ALT (0-40) U/L Alkaline Phosphatase (39-117) U/L Ammonia 32 (13-55) umol/L Total Creatine Kinase (38-174) U/L Troponin I High Sens (<3.5-35.0) ng/L Total Protein (6.5-8.0) g/dL Albumin (3.5-5.0) g/dL Urine Color Yellow Urine Appearance Clear Urine pH 6.5 (5.0-9.0) Ur Specific [place] 1.010 (1.005-1.025) Urine Protein Trace (Neg-Trace) mg/dL Urine Glucose (UA) Negative (Negative) mg/dL Urine Ketones Negative (Negative) mg/dL Urine Blood Negative (Negative) Urine Nitrite Negative (Negative) Ur Leukocyte Esterase Negative (Negative) Urine Opiates Screen (Not Detect) Ur Buprenorphine Scrn (Not Detect) ng/mL Ur Oxycodone Screen (Not Detect) ng/mL Urine Methadone Screen (Not Detect) ng/mL Urine Fentanyl Screen (Not Detect) Ur Barbiturates Screen (Not Detect) Ur Phencyclidine Scrn (Not Detect) Ur Amphetamines Screen (Not Detect) U Benzodiazepines Scrn (Not Detect) Urine Cocaine Screen (Not Detect) U Marijuana (THC) Screen (Not Detect) Ethyl Alcohol mg/dL Independent Interpretation I performed an independent interpretation of an: EKG, Plain X-Ray (normal ) and CT Scan (no ICH) Interpretation: Rate: 65 Rhythm: NSR with frequent PVCs [place]: normal Normal P waves. Normal CLAUDIA. Normal QRS complex. ST T wave : no TONY, flat t waves V1 qTC: 432 prior studies: no acute ischemia The study has been interpreted contemporaneously by me. . Radiology Impression Discussion of test interpretation with radiology: I have reviewed the radiologist's reading. Independent Historian Clinical information obtained from an independent historian. History obtained from or confirmed by: EMS family here agree to take him home want to take him plan to call and follow up with PCP External Record Review External record reviewed: Office record Discharge Plan Discharge Clinical Impression: Atypical chest pain, Cocaine abuse, Cognitive impairment Patient Disposition: Home, Self-Care Instructions: Chest Pain (ED), Cocaine Abuse (ED) Additional Instructions: please follow up with primary care doctor return at any time for worsening symptoms or concerns Prescriptions: No Action omeprazole 20 mg capsule,delayed release(DR/EC) 20 mg PO DAILY 90 Days Qty: 90 2RF tramadol 50 mg tablet 50 mg PO BEDTIME Qty: 5 0RF ondansetron 4 mg tablet,disintegrating 4 mg PO Q8H PRN (Reason: nausea and vomiting) Qty: 20 0RF levofloxacin 250 mg tablet 250 mg PO DAILY 7 Days Qty: 7 0RF sennosides [senna] 8.6 mg tablet 8.6 mg PO BEDTIME PRN (Reason: constipation) Qty: 30 0RF acetaminophen [Tylenol Extra Strength] 500 mg tablet 500 mg PO Q6H PRN (Reason: pain or fever) Qty: 20 0RF lidocaine [Lidoderm] 5 % adhesive patch,medicated 1 patch topical DAILY MDD remove after 12 hours PRN (Reason: pain) Qty: 30 0RF Rx Instructions: leave on most painful area for up to 12 hrs naproxen 500 mg tablet 500 mg PO BID PRN (Reason: pain) 10 Days Qty: 20 0RF cyclobenzaprine 5 mg tablet 5 mg PO Q8H PRN (Reason: pain (scale score 7-10)) 5 Days Qty: 14 0RF Glucagon Emergency Kit (human) 1 mg recon soln 1 mg subcut Q20M PRN (Reason: hypoglycemia) Qty: 1 1RF Rx Instructions: until target blood sugar attained acetaminophen [Tylenol Extra Strength] 500 mg tablet 500 mg PO Q6H PRN (Reason: pain or fever) Qty: 20 0RF lidocaine [Lidoderm] 5 % adhesive patch,medicated 1 patch topical DAILY MDD remove after 12 hours PRN (Reason: pain) Qty: 30 0RF Rx Instructions: leave on most painful area for up to 12 hrs tramadol 50 mg tablet 50 mg PO Q6-8H PRN (Reason: pain) Qty: 20 0RF acetaminophen [Tylenol Extra Strength] 500 mg tablet 500 mg PO Q6H PRN (Reason: pain) Qty: 30 0RF metformin 500 mg tablet extended release 24 hr 500 mg PO BID Cerovite Advanced Formula 18-400 mg-mcg tablet PO melatonin 5 mg tablet PO aspirin 81 mg tablet,delayed release (DR/EC) 81 mg PO BEDTIME atorvastatin 20 mg tablet 20 mg PO DAILY losartan 50 mg tablet 50 mg PO DAILY Fish Oil 340-1,000 mg capsule 1 cap PO BID gabapentin 100 mg capsule 200 mg PO BID nicotine 14 mg/24 hr patch 24 hour 0 patch topical naproxen 500 mg tablet 500 mg PO BID mirtazapine 30 mg tablet 30 mg PO BEDTIME chlorthalidone 25 mg tablet 25 mg PO DAILY lidocaine HCl [Aspercreme (lidocaine HCl)] 4 % cream 1 appl topical BID PRN (Reason: pain) 30 Days Qty: 120 3RF Fluad Quad 2020-21(65y up)(PF) 60 mcg (15 mcg x 4)/0.5 mL syringe IM polyethylene glycol 3350 [Miralax] 17 gram/dose powder 238 g PO ONCE 1 Days Qty: 238 0RF Rx Instructions: Take as directed by mouth the day before your procedure. bisacodyl [Dulcolax (bisacodyl)] 5 mg tablet,delayed release (DR/EC) 10 mg PO ONCE 1 Days Qty: 2 0RF Rx Instructions: Take 2 tablets by mouth at 12:00pm the day before your procedure. Print Language: Yoruba
[2024-08-26 08:44] VITALS: BP 146/78; PULSE 61; RESP 12; TEMP 36.6; O2SAT 100; BMI 23.0
[2024-08-26 09:05] VITALS: BP 146/78; PULSE 61; RESP 12; TEMP 36.6; O2SAT 100
--- NOTE | 2024-08-26 09:06 | PC.NURSE ---
patient presents to ED 7 via EMS from urgent care where patient went to be seen for left sided chest pain, patient was seen in this ED for same problem yesterday and left AMA. patient initially refused treatment from EMS, refusing to allow them to put in IV access. patient presents alert and oriented and calm and cooperative however appears to have a skewed timeline. when asking patient why he had the ambulance come this time patient states because a long time ago i had a stroke asked patient if he was having any sx of a stroke at this time, patient denies any stroke like sx. states he has pain in his left chest and it occasionally radiates down left arm. patient denies any shortness of breath or swelling to lower extremities. patient states it feels like im losing time when asking patient to elaborate patient is unable to. Patient endorses cocaine use, states he is unsure if there is fentanyl in his cocaine, states he has passed out a few times but is unable to elaborate on what led up to the events. LSCTA, no swelling appreciated to BLE, patient placed on cardiac monitor technician occasional PVCs noted, otherwise Normal sinus on monitor. 18g PIV placed in right bicep. patient given urinal, asked to provide urine sample, agreeable to plan of care at this time, blood work drawn and sent to lab. plan of care remains ongoing
[2024-08-26 09:08] LABS: MANUAL DIFF FLAG NO
[2024-08-26 09:11] LABS: Basophils Percent Auto 0.3 % (0-2); Eosinophils Absolute Auto 0.1 X10*3/uL (0.0-0.4); Eosinophils Percent Auto 2.1 % (0-4); Hematocrit 37.1 % (42.0-52.0); Hemoglobin 12.2 g/dl (14.0-18.0); Imm Gran Abs Auto 0.03 X10*3/uL (0.00-0.03); Imm Gran Pct Auto 0.5 % (0.0-0.4); Lymphocytes Absolute Auto 1.8 X10*3/uL (1.2-4.9); Lymphocytes Percent Auto 28.5 % (20-40); Mean Corpuscular HGB Conc 32.9 g/dl (31.0-36.0); Mean Corpuscular Hemoglobin 31.2 pg (27.0-33.0); Mean Corpuscular Volume 94.9 fL (80.0-98.0); Mean Platelet Volume 11.2 fL (9.4-12.4); Monocytes Absolute Auto 0.6 X10*3/uL (0.1-1.2); Monocytes Percent Auto 10.2 % (2-11); Neutrophils Absolute Auto 3.6 x10*3/uL (2.0-8.3); Neutrophils Percent Auto 58.4 % (45-73); Platelet Count 198 X10*3/uL (160-400); Red Blood Count 3.91 X10*6/uL (4.60-5.80); Red Cell Distribution Width 12.9 % (11.0-16.0); White Blood Count 6.2 X10*3/uL (4.8-10.8)
[2024-08-26 09:32] LABS: Alanine Aminotransferase 16 U/L (0-40); Albumin Level 3.8 g/dL (3.5-5.0); Alkaline Phosphatase 70 U/L (39-117); Anion Gap 15 (12-20); Aspartate Amino Transferase 29 U/L (5-37); Bilirubin Direct 0.2 mg/dL (0.0-0.5); Bilirubin Total 0.5 mg/dL (0.0-1.0); Blood Urea Nitrogen 21 mg/dL (9-16); Calcium 8.9 mg/dL (8.4-10.2); Carbon Dioxide 24 mmol/L (22-29); Chloride 105 mmol/L (96-108); Creatinine Clr Calc Pharmacy 38.9; Estimated Glomerular Filt Rate 40; Glucose Random 143 mg/dL (60-115); Potassium 4.1 mmol/L (3.3-5.1); Sodium 140 mmol/L (135-145); Total Protein 6.6 g/dL (6.5-8.0)
[2024-08-26 09:33] LABS: Troponin-I High Sensitivity 3.7 ng/L (<3.5-35.0)
[2024-08-26 10:10] LABS: Ethanol < 10 mg/dL
--- NOTE | 2024-08-26 10:34 | PC.NURSE ---
patient resting on stretcher, states he feels better, reminded again on need for urine sample.
[2024-08-26 11:39] LABS: Troponin-I High Sensitivity 4.5 ng/L (<3.5-35.0)
--- NOTE | 2024-08-26 12:26 | PC.NURSE ---
patient ambulated with steady gait out of room, requesting to have IV taken out and for discharge papers, patient educated that he is not discharged yet and he needs a CT scan and we still need a urine sample. patient agreeable at this time, ambulated back into room. made aware. CM consult placed
[2024-08-26 12:44] LABS: Amphetamine Screen Urine Not Detected (Not Detect); Barbiturates, Urine Not Detected (Not Detect); Benzodiazepines Screen Urine Not Detected (Not Detect); Buprenorphine Scr Not Detected (Not Detect); Cannabinoid Screen Urine Not Detected (Not Detect); Cocaine Screen Urine POSITIVE (Not Detect); Fentanyl, urine Not Detected (Not Detect); Methadone Screen, Urine Not Detected (Not Detect); Opiate Screen Urine Not Detected (Not Detect); Oxycodone Screen Urine Not Detected (Not Detect); Phencyclidine Screen Urine Not Detected (Not Detect)
--- NOTE | 2024-08-26 12:47 | PC.NURSE ---
patient noted to have taken self off monitor, ripped of ID band, and was found to be in waiting room. patient states to this RN that he was looking for the bathroom. patient educated that there is a bathroom in his room but also across from his room. patient then states i didn't know that, i want to go home attempted to educated patient on why he is here today, patient states i don't even know what i'm here for i want to go home educated patient that he came in in an ambulance for chest pain and we are waiting for his workup to be complete, patient states he does not remember when he came in. appears confused. MD made aware, patient to be moved to the pod as elopement risk, MD attempted to call family number on file, number was out of service. patient not oriented to situation, does not understand why he is in the hospital. chargemaster specialist made aware of patients confusion
[2024-08-26 12:48] LABS: Appearance Urine Clear; Color Urine Yellow; Glucose Urine UA Negative (Negative); Leukocyte Esterase Urine Negative (Negative); Nitrite Urine Negative (Negative); PH 6.5 (5.0-9.0); Urine Blood Negative (Negative); Urine Ketones Negative (Negative); Urine Protein Trace mg/dL (Neg-Trace)
[2024-08-26 13:23] VITALS: RESP 18
--- NOTE | 2024-08-26 13:26 | PC.NURSE ---
Assumed care of patient at approximately 1315. Patient agitated upon arrival, refusing to knife changer. patient is not alert to location, time or situation, is able to recite name and . Pt yelling at this staff, requiring assistance from security for knife changer. Patient continues to express his frustrations verbally after knife changer. Pt aware family is coming to see him and potentially bring him home soon
[2024-08-26 14:36] LABS: Ammonia 32 umol/L (13-55)
[2024-08-26 14:37] VITALS: BP 181/94; PULSE 76; RESP 22; TEMP 36.3; O2SAT 100
--- NOTE | 2024-08-26 15:01 | MHC.CM.ED ---
Received case management from Dr Clay. Patient came to the ER due to chest pain. Patient showing evidence of AMS. Patient came to ER on 08/25 and left AMA. Patient's urine tox positive for cocaine today. Met with patient, daughter and granddaughter with Dr Clay. Daughter, Janet aware of patient's AMS and that he is not safe at home alone. Patient will go to Janet's house. Family will arrange 10/06 care. Patient will be d/c'd home with daughter. Elder at risk filed at Dr Clay's request. Continue to monitor for d/c needs.
[2024-08-26 15:14] VITALS: BP 109/87; PULSE 77; RESP 14; TEMP 36.9; O2SAT 100
== END 2024-08-26 15:16 | disposition home or self-care (01) ==
PROVIDERS: Emergency Provider Emergency Medicine
DX: R07.89 Other chest pain (principal); F14.10 Cocaine abuse, uncomplicated; G31.84 Mild cognitive impairment of uncertain or unknown etiology; E13.22 Other specified diabetes mellitus with diabetic chronic kidney disease; I12.9 Hypertensive chronic kidney disease with stage 1 through stage 4 chronic kidney disease, or unspecified chronic kidney disease; N18.9 Chronic kidney disease, unspecified; E78.5 Hyperlipidemia, unspecified; F10.10 Alcohol abuse, uncomplicated; Y90.0 Blood alcohol level of less than 20 mg/100 ml; F17.210 Nicotine dependence, cigarettes, uncomplicated; Z79.82 Long term (current) use of aspirin; Z79.02 Long term (current) use of antithrombotics/antiplatelets; Z79.84 Long term (current) use of oral hypoglycemic drugs; Z79.899 Other long term (current) drug therapy
CPT/HCPCS: 36415; 70450; 71045; 80053; 80307; 81003; 82140; 82248; 82550; 83735; 84484; 85025; 93005; 99284; 99285

== ENCOUNTER → 2024-08-26 08:39 | Outpatient (BNV) | payer OTHER, SELFPAY | PROVIDERS: Emergency Provider Emergency Medicine; Visit Provider Internal Medicine Cardiovascular Disease | DX: R07.9 Chest pain, unspecified (principal) | CPT/HCPCS: 93010 ==

== ENCOUNTER 2024-11-03 13:14 | Emergency (ER) | payer OTHER, SELFPAY ==
--- NOTE | ~2024-11-03 | XR_ITS ---
EXAMINATION: XR CHEST CLINICAL INFORMATION: chest pain COMPARISON: 08/26/2024 TECHNIQUE: 2 views of the chest were obtained. FINDINGS: No focal consolidation, pulmonary edema, or pleural effusion. Stable cardiomediastinal silhouette. XR/XR chest 2V IMPRESSION: No acute cardiopulmonary findings. Electronically signed by: Loki Hairston MD 11/03/2024 03:37 PM [facility] [place]
--- NOTE | 2024-11-03 13:16 | ECG_ITS ---
Test Reason : CHEST PAIN Blood Pressure : / mmHG Vent. Rate : 063 BPM Atrial Rate : 063 BPM P-R Int : 132 ms QRS Dur : 076 ms QT Int : 384 ms P-R-T Axes : 027 -17 046 degrees QTc Int : 392 ms Normal sinus rhythm with sinus arrhythmia Septal infarct , age undetermined Abnormal ECG When compared with ECG of 26-AUG-2024 08:39, Premature ventricular complexes are no longer Present Referred By: Generic ED Physician Electronically Signed By:MANUEL HUFFMAN
[2024-11-03 13:38] VITALS: BP 147/82; PULSE 63; RESP 16; TEMP 36.6; O2SAT 99; BMI 23.7
[2024-11-03 13:54] LABS: MANUAL DIFF FLAG NO
[2024-11-03 13:56] LABS: Basophils Percent Auto 0.3 % (0-2); Eosinophils Absolute Auto 0.2 X10*3/uL (0.0-0.4); Eosinophils Percent Auto 2.1 % (0-4); Hematocrit 37.3 % (42.0-52.0); Hemoglobin 12.1 g/dl (14.0-18.0); Imm Gran Abs Auto 0.02 X10*3/uL (0.00-0.03); Imm Gran Pct Auto 0.3 % (0.0-0.4); Lymphocytes Absolute Auto 1.9 X10*3/uL (1.2-4.9); Lymphocytes Percent Auto 26.8 % (20-40); Mean Corpuscular HGB Conc 32.4 g/dl (31.0-36.0); Mean Corpuscular Hemoglobin 31.8 pg (27.0-33.0); Mean Corpuscular Volume 98.2 fL (80.0-98.0); Mean Platelet Volume 10.9 fL (9.4-12.4); Monocytes Absolute Auto 0.7 X10*3/uL (0.1-1.2); Monocytes Percent Auto 9.4 % (2-11); Neutrophils Absolute Auto 4.3 x10*3/uL (2.0-8.3); Neutrophils Percent Auto 61.1 % (45-73); Platelet Count 169 X10*3/uL (160-400); Red Cell Distribution Width 13.1 % (11.0-16.0); White Blood Count 7.1 X10*3/uL (4.8-10.8)
[2024-11-03 14:09] LABS: Anion Gap 11 (12-20); Blood Urea Nitrogen 28 mg/dL (9-16); Calcium 9.5 mg/dL (8.4-10.2); Carbon Dioxide 29 mmol/L (22-29); Chloride 107 mmol/L (96-108); Creatinine Clr Calc Pharmacy 42.7; Estimated Glomerular Filt Rate 44; Glucose Random 101 mg/dL (60-115); Potassium 4.4 mmol/L (3.3-5.1); Sodium 143 mmol/L (135-145)
[2024-11-03 14:18] LABS: Troponin-I High Sensitivity 4.1 ng/L (<3.5-35.0)
--- NOTE | 2024-11-03 15:56 | ED.CHESTPAIN ---
HPI - Chest Pain General Chief Complaint: Chest Pain Stated Complaint: Chest pain Related Data Home Medications ?Medication ?Instructions ?Recorded ?Confirmed aspirin 81 mg tablet,delayed 81 mg PO BEDTIME 09/01/20 04/18/21 release atorvastatin 20 mg tablet 20 mg PO DAILY 09/01/20 04/18/21 chlorthalidone 25 mg tablet 25 mg PO DAILY 09/01/20 04/18/21 gabapentin 100 mg capsule 200 mg PO BID 09/01/20 04/18/21 losartan 50 mg tablet 50 mg PO DAILY 09/01/20 04/18/21 melatonin 5 mg tablet mg PO 09/01/20 04/18/21 metformin 500 mg tablet,extended 500 mg PO BID 09/01/20 04/18/21 release 24 hr mirtazapine 30 mg tablet 30 mg PO BEDTIME 09/01/20 04/18/21 multivitamin-ferrous tab PO 09/01/20 04/18/21 fumarate-folic acid 18 mg-400 mcg tablet naproxen 500 mg tablet 500 mg PO BID 09/01/20 04/18/21 nicotine 14 mg/24 hr daily 0 patch topical 09/01/20 04/18/21 transdermal patch omega-3 fatty acids-fish oil 340 1 cap PO BID 09/01/20 04/18/21 mg-1,000 mg capsule flu vacc 2019-(65yr ml IM 12/19/20 04/18/21 up)-MF59C(PF) 60 mcg(15 mcgx4)/0.5 mL IM syringe Previous Rx's ?Medication ?Instructions ?Recorded levofloxacin 250 mg tablet 250 mg PO DAILY 7 days #7 tabs 09/29/20 ondansetron 4 mg disintegrating 4 mg PO Q8H PRN nausea and 09/29/20 tablet vomiting #20 tabs sennosides 8.6 mg tablet (senna) 8.6 mg PO BEDTIME PRN constipation 09/29/20 #30 tabs lidocaine HCl 4 % topical cream 1 appl topical BID PRN pain 30 01/09/21 (Aspercreme (lidocaine HCl)) days #120 grams tramadol 50 mg tablet 50 mg PO BEDTIME #5 tabs 01/10/21 bisacodyl 5 mg tablet,delayed 10 mg (2 x 5 mg) PO ONCE 04/18/21 release (Dulcolax (bisacodyl)) colonoscopy prep 1 day #2 tabs polyethylene glycol 3350 17 238 g PO ONCE 1 day #238 grams 04/18/21 gram/dose oral powder (Miralax) acetaminophen 500 mg tablet 500 mg PO Q6H PRN pain or fever 09/07/21 (Tylenol Extra Strength) #20 tabs cyclobenzaprine 5 mg tablet 5 mg PO Q8H PRN pain (scale score 09/07/21 7-10) 5 days #14 tabs lidocaine 5 % topical patch 1 patch topical DAILY PRN pain #30 09/07/21 (Lidoderm) ea naproxen 500 mg tablet 500 mg PO BID PRN pain 10 days #20 09/07/21 tabs acetaminophen 500 mg tablet 500 mg PO Q6H PRN pain or fever 10/01/21 (Tylenol Extra Strength) #20 tabs lidocaine 5 % topical patch 1 patch topical DAILY PRN pain #30 10/01/21 (Lidoderm) ea omeprazole 20 mg capsule,delayed 20 mg PO DAILY 90 days #90 caps 10/19/21 release glucagon 1 mg solution for 1 mg subcut Q20M PRN hypoglycemia 10/29/22 injection (Glucagon Emergency Kit) #1 ea tramadol 50 mg tablet 50 mg PO Q6-8H PRN pain #20 tabs 02/02/24 acetaminophen 500 mg tablet 500 mg PO Q6H PRN pain #30 tabs 03/02/24 (Tylenol Extra Strength) Allergies Allergy/AdvReac Type Severity Reaction Status Date / Time No Known Allergies Allergy Verified 11/03/24 13:40 [facility] Past Medical History Medical History HTN (hypertension) Diabetes Appendicitis Cocaine abuse Alcohol abuse Kidney disease Diabetes 1.5, managed as type 1 Family History Family History Father No problems noted. Mother Diabetes Pancreas (digestive gland) works poorly Social History Social History Household Members: None Alcohol intake: unknown Patient Tobacco Use Status: Current someday Tobacco user Cigarettes Per Day: 2 e-Cigarette/Vaping Use: Never Used Second Hand Smoke Exposure: No Substance Use Type: Crack/Cocaine Do you have a plan to hurt others: No Plan service: No Current occupational status: disabled Physical Exam Vital Signs: Vital Signs: Last Vital Signs Temp 97.9 F 11/03/24 13:38 Pulse 63 11/03/24 13:38 Resp 16 11/03/24 13:38 BP 147/82 H 11/03/24 13:38 Pulse Ox 99 11/03/24 13:38 O2 Del Method Room Air 11/03/24 13:38 BMI result Body Mass Index 23.7 Course Course Course Narrative: RME, this is a rapid medical exam performed by Earl Benoit please refer to primary provider for complete H&P- 79-year-old male presents for evaluation of chest pain that started 3-4 days ago. He reports the pain lasted about an hour was left-sided and resolved. He reports feeling ?fall off since then. ? he was referred from urgent care. Plan for cardiac workup Medical Decision Making Lab Data 11/03/24 13:50 11/03/24 13:50 Labs: Lab Results 11/03/24 Range/Units 13:50 WBC 7.1 (4.8-10.8) X10*3/uL RBC 3.80 L (4.60-5.80) X10*6/uL Hgb 12.1 L (14.0-18.0) g/dl Hct 37.3 L (42.0-52.0) % MCV 98.2 H (80.0-98.0) fL MCH 31.8 (27.0-33.0) pg MCHC 32.4 (31.0-36.0) g/dl RDW 13.1 (11.0-16.0) % Plt Count 169 (160-400) X10*3/uL MPV 10.9 (9.4-12.4) fL Immature Gran % (Auto) 0.3 (0.0-0.4) % Neut % (Auto) 61.1 (45-73) % Lymph % (Auto) 26.8 (20-40) % [place] % (Auto) 9.4 (2-11) % Eos % (Auto) 2.1 (0-4) % Baso % (Auto) 0.3 (0-2) % Lymph # (Auto) 1.9 (1.2-4.9) X10*3/uL [place] # (Auto) 0.7 (0.1-1.2) X10*3/uL Eos # (Auto) 0.2 (0.0-0.4) X10*3/uL Baso # (Auto) 0.0 (0.0-0.2) X10*3/uL Abs Immat Gran (auto) 0.02 (0.00-0.03) X10*3/uL Absolute Neuts (auto) 4.3 (2.0-8.3) x10*3/uL Absolute Nucleated RBC 0.000 (0.0-0.012) X10*3/uL Nucleated RBC % (auto) 0.0 (0.0-0.2) /100WBC Sodium 143 (135-145) mmol/L Potassium 4.4 (3.3-5.1) mmol/L Chloride 107 (96-108) mmol/L Carbon Dioxide 29 (22-29) mmol/L Anion Gap 11 L (12-20) BUN 28 H (9-16) mg/dL Creatinine 1.54 H (0.5-1.4) mg/dL Estim Creat Clear Calc 42.7 Estimated GFR 44 Random Glucose 101 (60-115) mg/dL Calcium 9.5 D (8.4-10.2) mg/dL Troponin I High Sens 4.1 (<3.5-35.0) ng/L Discharge Plan Discharge Prescriptions: No Action omeprazole 20 mg capsule,delayed release(DR/EC) 20 mg PO DAILY 90 Days Qty: 90 2RF tramadol 50 mg tablet 50 mg PO BEDTIME Qty: 5 0RF ondansetron 4 mg tablet,disintegrating 4 mg PO Q8H PRN (Reason: nausea and vomiting) Qty: 20 0RF levofloxacin 250 mg tablet 250 mg PO DAILY 7 Days Qty: 7 0RF sennosides [senna] 8.6 mg tablet 8.6 mg PO BEDTIME PRN (Reason: constipation) Qty: 30 0RF acetaminophen [Tylenol Extra Strength] 500 mg tablet 500 mg PO Q6H PRN (Reason: pain or fever) Qty: 20 0RF lidocaine [Lidoderm] 5 % adhesive patch,medicated 1 patch topical DAILY MDD remove after 12 hours PRN (Reason: pain) Qty: 30 0RF Rx Instructions: leave on most painful area for up to 12 hrs naproxen 500 mg tablet 500 mg PO BID PRN (Reason: pain) 10 Days Qty: 20 0RF cyclobenzaprine 5 mg tablet 5 mg PO Q8H PRN (Reason: pain (scale score 7-10)) 5 Days Qty: 14 0RF Glucagon Emergency Kit (human) 1 mg recon soln 1 mg subcut Q20M PRN (Reason: hypoglycemia) Qty: 1 1RF Rx Instructions: until target blood sugar attained acetaminophen [Tylenol Extra Strength] 500 mg tablet 500 mg PO Q6H PRN (Reason: pain or fever) Qty: 20 0RF lidocaine [Lidoderm] 5 % adhesive patch,medicated 1 patch topical DAILY MDD remove after 12 hours PRN (Reason: pain) Qty: 30 0RF Rx Instructions: leave on most painful area for up to 12 hrs tramadol 50 mg tablet 50 mg PO Q6-8H PRN (Reason: pain) Qty: 20 0RF acetaminophen [Tylenol Extra Strength] 500 mg tablet 500 mg PO Q6H PRN (Reason: pain) Qty: 30 0RF metformin 500 mg tablet extended release 24 hr 500 mg PO BID Cerovite Advanced Formula 18-400 mg-mcg tablet PO melatonin 5 mg tablet PO aspirin 81 mg tablet,delayed release (DR/EC) 81 mg PO BEDTIME atorvastatin 20 mg tablet 20 mg PO DAILY losartan 50 mg tablet 50 mg PO DAILY Fish Oil 340-1,000 mg capsule 1 cap PO BID gabapentin 100 mg capsule 200 mg PO BID nicotine 14 mg/24 hr patch 24 hour 0 patch topical naproxen 500 mg tablet 500 mg PO BID mirtazapine 30 mg tablet 30 mg PO BEDTIME chlorthalidone 25 mg tablet 25 mg PO DAILY lidocaine HCl [Aspercreme (lidocaine HCl)] 4 % cream 1 appl topical BID PRN (Reason: pain) 30 Days Qty: 120 3RF Fluad Quad 2020-21(65y up)(PF) 60 mcg (15 mcg x 4)/0.5 mL syringe IM polyethylene glycol 3350 [Miralax] 17 gram/dose powder 238 g PO ONCE 1 Days Qty: 238 0RF Rx Instructions: Take as directed by mouth the day before your procedure. bisacodyl [Dulcolax (bisacodyl)] 5 mg tablet,delayed release (DR/EC) 10 mg PO ONCE 1 Days Qty: 2 0RF Rx Instructions: Take 2 tablets by mouth at 12:00pm the day before your procedure. Print Language: Tuvaluan
== END 2024-11-03 20:19 | disposition left against medical advice (07) ==
PROVIDERS: Emergency Provider Emergency Medicine
DX: R07.89 Other chest pain (principal); E13.9 Other specified diabetes mellitus without complications; F17.210 Nicotine dependence, cigarettes, uncomplicated; F14.10 Cocaine abuse, uncomplicated; Z79.84 Long term (current) use of oral hypoglycemic drugs; Z79.899 Other long term (current) drug therapy
CPT/HCPCS: 36415; 71046; 80048; 84484; 85025; 93005; 99283

== ENCOUNTER → 2024-11-03 13:16 | Outpatient (BNV) | payer OTHER, SELFPAY | PROVIDERS: Visit Provider Internal Medicine | DX: R07.9 Chest pain, unspecified (principal); R94.31 Abnormal electrocardiogram [ECG] [EKG] | CPT/HCPCS: 93010 ==

== ENCOUNTER 2024-12-06 13:43 | Emergency (ER) | payer OTHER, SELFPAY ==
--- NOTE | ~2024-12-06 | CT_ITS ---
CLINICAL HISTORY: Headache CT HEAD WITHOUT CONTRAST Comparison: CT/SR - CT HEAD/BRAIN WO IV CON - 08/26/24 12:02 EDT Findings: No acute intracranial hemorrhage, extra-axial fluid collection, hydrocephalus or midline shift. Age appropriate generalized parenchymal atrophy. There are periventricular and subcortical white matter hypodensities which are nonspecific but most likely related to microangiopathic gliosis. Redemonstration of nonspecific opacification of several right mastoid air cells. Redemonstration of chronic left maxillary sinusitis. Visualized orbits: No acute abnormalities. There is no acute fracture. IMPRESSION: 1. No acute intracranial process. This document has been electronically signed by: Amelia Ku DO on 12/06/2024 15:29:45
--- NOTE | ~2024-12-06 | XR_ITS ---
CLINICAL HISTORY: Chest pain 1 view chest x-ray Comparison: CR/SR - XR CHEST 2V - 11/03/24 14:05 EST Findings: No consolidation, pleural effusion or pneumothorax. Heart size is normal. No acute fracture. IMPRESSION: 1. No acute findings. This document has been electronically signed by: Amelia Ku DO on 12/06/2024 15:08:37
[2024-12-06 13:56] VITALS: BP 148/82; PULSE 80; O2SAT 98
--- NOTE | 2024-12-06 14:19 | ECG_ITS ---
Test Reason : ALTERED MENTAL STATUS Blood Pressure : */* mmHG Vent. Rate : 63 BPM Atrial Rate : 63 BPM P-R Int : 142 ms QRS Dur : 90 ms QT Int : 388 ms P-R-T Axes : 39 -31 15 degrees QTcB Int : 397 ms Normal sinus rhythm Left axis deviation Abnormal ECG When compared with ECG of 03-Nov-2024 13:25, Criteria for Septal infarct are no longer Present Referred By: Jarred Redman Electronically Signed By: JAN PERERA MD
[2024-12-06 14:23] VITALS: BMI 27.2
[2024-12-06 15:40] LABS: MANUAL DIFF FLAG NO
[2024-12-06 15:41] LABS: Basophils Percent Auto 0.2 % (0-2); Eosinophils Absolute Auto 0.2 X10*3/uL (0.0-0.4); Eosinophils Percent Auto 2.1 % (0-4); Hematocrit 37.7 % (42.0-52.0); Hemoglobin 12.3 g/dl (14.0-18.0); Imm Gran Abs Auto 0.03 X10*3/uL (0.00-0.03); Imm Gran Pct Auto 0.3 % (0.0-0.4); Lymphocytes Absolute Auto 1.7 X10*3/uL (1.2-4.9); Lymphocytes Percent Auto 19.5 % (20-40); Mean Corpuscular HGB Conc 32.6 g/dl (31.0-36.0); Mean Corpuscular Hemoglobin 31.5 pg (27.0-33.0); Mean Corpuscular Volume 96.4 fL (80.0-98.0); Mean Platelet Volume 10.7 fL (9.4-12.4); Monocytes Absolute Auto 0.8 X10*3/uL (0.1-1.2); Monocytes Percent Auto 9.5 % (2-11); Neutrophils Absolute Auto 5.9 x10*3/uL (2.0-8.3); Neutrophils Percent Auto 68.4 % (45-73); Platelet Count 179 X10*3/uL (160-400); Red Blood Count 3.91 X10*6/uL (4.60-5.80); Red Cell Distribution Width 12.6 % (11.0-16.0); White Blood Count 8.7 X10*3/uL (4.8-10.8)
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
[2024-12-06 16:02] LABS: Troponin-I High Sensitivity 4.5 ng/L (<3.5-35.0)
[2024-12-06 16:04] LABS: Alanine Aminotransferase 17 U/L (0-40); Albumin Level 4.1 g/dL (3.5-5.0); Alkaline Phosphatase 75 U/L (39-117); Anion Gap 13 (12-20); Aspartate Amino Transferase 26 U/L (5-37); Bilirubin Direct < 0.2 mg/dL (0.0-0.5); Bilirubin Total 0.2 mg/dL (0.0-1.0); Blood Urea Nitrogen 33 mg/dL (9-16); Calcium 9.1 mg/dL (8.4-10.2); Carbon Dioxide 24 mmol/L (22-29); Chloride 111 mmol/L (96-108); Estimated Glomerular Filt Rate 49; Glucose Random 108 mg/dL (60-115); Lipase 77 U/L (8-78); Potassium 4.8 mmol/L (3.3-5.1); Sodium 143 mmol/L (135-145); Total Protein 7.5 g/dL (6.5-8.0)
[2024-12-06 16:05] VITALS: BP 155/68; PULSE 64; RESP 20; TEMP 36.6; O2SAT 98
[2024-12-06 16:09] LABS: B Type Natriuretic Peptide < 10 pg/mL (<100)
[2024-12-06 16:18] LABS: Influenza A PCR NEGATIVE (Negative); Influenza B PCR NEGATIVE (Negative); Resp Syncy Virus RNA Qual PCR NEGATIVE (Negative); SARS COV2 PCR INHOUSE NEGATIVE (Negative)
--- NOTE | 2024-12-06 17:42 | PC.NURSE ---
Pt. seen by security officers leaving for safe d/c with daughter. Did not notify staff and/or sign d/c paperwork.
[2024-12-06 17:43] VITALS: BP 155/68; PULSE 64; RESP 20; TEMP 36.6; O2SAT 98
== END 2024-12-06 17:44 | disposition home or self-care (01) ==
PROVIDERS: Emergency Provider Emergency Medicine
DX: R41.82 Altered mental status, unspecified (principal); R51.9 Headache, unspecified; F03.90 Unspecified dementia, unspecified severity, without behavioral disturbance, psychotic disturbance, mood disturbance, and anxiety; R94.31 Abnormal electrocardiogram [ECG] [EKG]; F17.210 Nicotine dependence, cigarettes, uncomplicated; Z79.899 Other long term (current) drug therapy; Z03.818 Encounter for observation for suspected exposure to other biological agents ruled out
CPT/HCPCS: 0241U; 36415; 70450; 71045; 80048; 80076; 83690; 83880; 84484; 85025; 93005; 99284

== ENCOUNTER → 2024-12-06 14:18 | Outpatient (BNV) | payer OTHER, SELFPAY | PROVIDERS: Emergency Provider Emergency Medicine; Visit Provider Radiology Diagnostic Radiology | DX: R51.9 Headache, unspecified (principal); R07.9 Chest pain, unspecified | CPT/HCPCS: 70450; 71045 ==

== ENCOUNTER → 2024-12-06 14:19 | Outpatient (BNV) | payer OTHER, SELFPAY | PROVIDERS: Emergency Provider Emergency Medicine; Visit Provider Internal Medicine Cardiovascular Disease | DX: R94.31 Abnormal electrocardiogram [ECG] [EKG] (principal); R41.82 Altered mental status, unspecified | CPT/HCPCS: 93010 ==

== ENCOUNTER → 2025-04-27 16:12 | Outpatient (BNV) | payer OTHER, SELFPAY | PROVIDERS: PCP Registered Nurse; Visit Provider Radiology Diagnostic Radiology | DX: G31.9 Degenerative disease of nervous system, unspecified (principal); I67.82 Cerebral ischemia; J34.89 Other specified disorders of nose and nasal sinuses | CPT/HCPCS: 70551 ==

== ENCOUNTER 2025-04-27 16:40 | Outpatient (REF) | payer OTHER, SELFPAY ==
--- NOTE | ~2025-04-27 | MR_ITS ---
EXAMINATION: MR BRAIN WITHOUT CONTRAST CLINICAL INFORMATION: Worsening cognitive impairment. COMPARISON: Correlated to CT dated December 06, 2024. TECHNIQUE: MRI of the brain was obtained using routine sequences without contrast. FINDINGS: No restricted diffusion. No acute intracranial hemorrhage, mass effect, midline shift, hydrocephalus or herniation. Prominence of the extra-axial CSF spaces cerebral sulci, ventricles likely central volume loss. Bilateral multifocal patchy and confluent deep periventricular white matter hyperintense T2 FLAIR signal involving centrum semiovale and aparicio radiata. There are few scattered punctate hyperintense T2 FLAIR signal within the deep white matter of the centrum semiovale and aparicio radiata. There are a few susceptibility signal foci, supratentorial compartment. Flow-void signal within the main cerebral vessels is normal. Right vertebral artery is dominant. There is thinning of the corpus callosum. Sellar/suprasellar region demonstrated no signal abnormality or masses. Craniocervical junction demonstrates normal position of the cerebellar tonsils. Polypoid mucosal thickening, left maxillary sinus with a focal hypointense T2 signal. Retention cyst, right maxillary sinus. MR/MR head/brain wo con IMPRESSION: No acute brain abnormality. Global cerebral atrophy. Small vessel occlusive disease. Few old microhemorrhages likely hypertensive etiology. Polypoid paranasal sinus disease with a focal hyperintense T2 signal, left maxillary sinus. Recommend direct inspection. Electronically signed by: William Garcia MD 04/28/2025 07:54 AM EDT
--- OUTSIDE RECORDS SUMMARY | 2025-04-27 19:06 | XMS_ITS | Encounter Summary ---
Author Organization [employer] Address [address] [place] [address] [address] [place] [address] Care Team Providers Care Shuttlecock Assembler Name Role Phone [facility] Primary Care Provider [phone] [facility] Primary Care Provider [phone] [facility] Primary Care Provider [phone] Encounter Details Date Type Department Care Team (Late Contact Info) Description 10/31/2022 Abstract [facility] [address] [place], [place] [phone] Enrique, Mitali [address] [place] [address] Social History Tobacco Use Types Packs/Day Years Used Date Smoking Tobacco: Never Assessed Depression Answer Date Recorded Patient Health Questionnaire-2 Score 2 10/25/2022 Sex and Gender Information Value Date Recorded Sex Assigned at Male 09/17/2022 10:20 AM EDT Legal Sex Male 10:20 AM EDT Gender Identity Male 09/17/2022 10:20 AM EDT Sexual Orientation Straight 09/17/2022 10 :20 AM EDT COVID-19 Exposure Response Date Recorded In the last 10 days, have yo u been in contact with someone who was confirmed or suspected to have Coronavirus/COVID-19? No / Unsure 10/25/2022 2:59 PM EST documented as of this encounter Plan of Treatment Upcoming Encounters Date Type Department Care Team (Late Contact Info) Description 05/26/2025 9:00 AM EDT Office Visit [facility] [address] [place], [place] [id number] [place] [employer] [address] [place] [address] 07/02/2025 1:30 PM EDT Office Visit [facility] [address] [place] [address] Martinez, Ariella, OD [address] [place] [address] documented as of this encounter Procedures Procedure Name Priority Date/Time Associated Diagnosis Comments FACIAL AUGMENTATION IMPLANT PROSTHESIS Routine 10/31/2022 12:00 AM EST 5 O AMALGAM FILLING Routine 10/31/2022 1 2:00 AM EST 4 O AMALGAM FILLING Routine 10/31/2022 1 2:00 AM EST 32 EXTRACTION Routine 10/31/2022 12:00 AM EST 31 EXTRACTION Routine 10/31/2022 12:00 AM EST 30 EXTRACTION Routine 10/31/2022 12:00 AM EST 29 EXTRACTION Routine 10/31/2022 12:00 AM EST 25 EXTRACTION Routine 10/31/2022 12:00 AM EST 24 EXTRACTION Routine 10/31/2022 12:00 AM EST 23 EXTRACTION Routine 10/31/2022 12:00 AM EST 20 EXTRACTION Routine 10/31/2022 12:00 AM EST 19 EXTRACTION Routine 10/31/2022 12:00 AM EST 18 EXTRACTION Routine 10/31/2022 12:00 AM EST 17 EXTRACTION Routine 10/31/2022 12:00 AM EST 16 EXTRACTION Routine 10/31/2022 12:00 AM EST 15 EXTRACTION Routine 10/31/2022 12:00 AM EST 14 EXTRACTION Routine 10/31/2022 12:00 AM EST 13 EXTRACTION Routine 10/31/2022 12:00 AM EST 12 EXTRACTION Routine 10/31/2022 12:00 AM EST 3 EXTRACTION Routine 10/31/2022 12:00 AM EST 2 EXTRACTION Routine 10/31/2022 12:00 AM EST 1 EXTRACTION Routine 10/31/2022 12:00 AM EST 21 FIXED PARTIAL DENTURE - ABUTMENT CROWN Routine 10/31/2022 12:00 AM EST 22 FIXED PARTIAL DENTURE - ABUTMENT CROWN Routine 10/31/2022 12:00 AM EST 26 FIXED PARTIAL DENTURE - ABUTMENT CROWN Routine 10/31/2022 12:00 AM EST 27 FIXED PARTIAL DENTURE - ABUTMENT CROWN Routine 10/31/2022 12:00 AM EST 11 FIXED PARTIAL DENTURE - ABUTMENT CROWN Routine 10/31/2022 12:00 AM EST 23 FIXED PARTIAL DENTURE - PONTIC Routine 10/31/2022 12:00 AM EST 24 FIXED PARTIAL DENTURE - PONTIC Routine 10/31/2022 12:00 AM EST 25 FIXED PARTIAL DENTURE - PONTIC Routine 10/31/2022 12:00 AM EST 13 FIXED PARTIAL DENTURE - PONTIC Routine 10/31/2022 12:00 AM EST 12 FIXED PARTIAL DENTURE - PONTIC Routine 10/31/2022 12:00 AM EST 13 DENTAL IMPLANT Routine 10/31/2022 12: 00 AM EST documented in this encounter Visit Diagnoses Not on filedocumented in this encounter Care Teams Shuttlecock Assembler Relationship Specialty Start Date End Date Latoya Bynum FNP [address] [place] [address] PCP - General Family Medicine 07/15/22 07/02/24 Latoya Bynum FNP [address] [place] [address] PCP - General Family Medicine 07/03/24 03/14/25 Latoya Bynum FNP [address] [place] [address] PCP - General Family Medicine 03/15/25 documented as of this encounter
== END 2025-04-27 16:41 | disposition home or self-care (01) ==
LOC: HO.MRI 16:40
PROVIDERS: PCP Registered Nurse; Visit Provider Registered Nurse
DX: R41.89 Other symptoms and signs involving cognitive functions and awareness (principal)
CPT/HCPCS: 70551